=== PATIENT | female | born 1960 | race Caucasian/White ===

== ENCOUNTER 2020-06-20 17:51 | Inpatient (IN) | payer MEDICARE, SELFPAY ==
[2020-06-20 18:02] VITALS: BP 186/80; PULSE 106; RESP 18; TEMP 36.7; O2SAT 97; BMI 18.3
--- NOTE | 2020-06-20 18:16 | ED_ITS ---
HPI - Psych General: Chief Complaint: Psychiatric Symptoms Stated Complaint: PSYCH Time Seen by Provider: 06/20/20 18:04 History of Present Illness: HPI Narrative: Patient is a 59-year-old female who was brought in by EMS for psychosis. Patient was arrested by police department today due to making a scene in public. The police stated patient was cursing at them and saying a lot of things that do not make any sense. Police Department said that they have had encounters with this patient in the past for same issue and she has a history of noncompliance with psych medications. Patient was then brought in by the EMS to the ED for evaluation. While here in the ED patient started escalating and cursing at staff and spitting at them. She was saying things that did not make any sense. Patient's response to my questions were incoherent and made no sense. I completed and signed the 96-hour hold paperwork and affidavit. Review of Systems Const: Denies: fever(s), chills or fatigue Eyes: Denies: change in vision or eye discomfort ENMT: Denies: throat pain, odynophagia, nasal discharge or nasal congestion Card: Denies: chest pain, palpitations, edema, swelling of feet/ankles, dyspnea on exertion or orthopnea Resp: Denies: dyspnea, productive cough or non-productive cough GI: Denies: abdominal pain, nausea, vomiting, diarrhea, constipation or hematochezia : Denies: flank pain, dysuria or hematuria Musc: Denies: neck pain, back pain or extremity swelling Skin/Breast: Denies: rash or new lesions Neuro: Denies: headache(s), numbness in extremities or weakness in extremities Psych: Reports: other (Patient is in state of psychosis and is seen things that do not make any sense. You are unable to have a conversation with patient and she does not give appropriate response to questions.) [facility] ED PFSH: Social History Smoking and tobacco status: current every day smoker cigarettes Packs smoked per day: 1 Alcohol intake: current Alcohol intake frequency: holidays/special occasions only Physical Exam Const: COMMON NORMALS: alert GENERAL APPEARANCE: combative (Patient was combative with nurses when she first arrived to the ED. After getting psych meds administered she calm down.) HENMT: COMMON NORMALS: normocephalic HEAD & SCALP: normocephalic MOUTH: Normal oral and palatal mucosa present THROAT: posterior oropharynx normal and uvula midline Eye: COMMON NORMALS: Equal, round and reactive pupils present PUPIL: Yes Equal, round and reactive pupils present Neck/C-Spine: COMMON NORMALS: supple GENERAL: Yes normal visual inspection Resp: COMMON NORMALS: normal respiratory effort, No retractions, No use of accessory muscles and clear to auscultation bilaterally AUSCULTATION: clear to auscultation bilaterally Cardio: COMMON NORMALS: regular rate, regular rhythm, S1 normal heart sound present, S2 normal heart sound present, No gallops present (Cardio), No clicks present (Cardio), No murmurs present (Cardio) and Peripheral pulses 2+ throughout RATE: regular rate RHYTHM: regular rhythm HEART SOUNDS: S1 normal heart sound present and S2 normal heart sound present PERIPHERAL PULSES: Peripheral pulses 2+ throughout GI: COMMON NORMALS: Normal to inspection, nondistended, normoactive bowel sounds present, Soft to palpation, non-tender and no masses PALPATION: Yes Soft to palpation : COMMON NORMALS: Yes no CVA tenderness BLADDER/KIDNEY EXAM: Yes no CVA tenderness Back/Pelvis: COMMON NORMALS: no CVA tenderness Extremity: COMMON NORMALS: normal to inspection and no pedal edema Neuro: COMMON NORMALS: moves all extremities SENSORIUM/ORIENTATION: Yes alert Psych: APPEARANCE: Yes unkempt ATTITUDE: Yes calm (I performed exam after psych meds were administered to sedate patient because she was getting aggressive.) SPEECH: Yes incoherent THOUGHT PROCESS: incoherent INSIGHT: Poor insight present (Psych) JUDGEMENT: Poor judgement present (Psych) OTHER: Patient was making multiple incoherent statements while I was in the room. When I asked patient questions her responses were incoherent and made no sense and had no relevance to the question. Skin: GENERAL SKIN EXAM: dry skin MDM - Psych MDM Narrative: Medical decision making narrative: Patient is a 59-year-old female that is brought in by EMS for psychosis. During history and exam patient was in a state of psychosis and making incoherent statements and her response to my questions made no sense. 96-hour hold paperwork and affidavit were signed and completed by me. I contacted Dr. Knox about patient's case and she will be admitted into the NPU. Dr. Tineo placed admission orders. Lab Data: Attestation: I reviewed the patient's lab results. Labs: Lab Results 06/20/20 06/20/20 06/20/20 Range/Units 18:03 18:03 18:25 WBC 10.7 H (4.0-10.0) 10^3/ uL RBC 5.14 (4.1-5.3) 10^6/u L Hgb 16.2 H (11.5-15.3) g/dL Hct 50.3 H (37.0-47.0) % MCV 97.9 (81-99) fL MCH 31.5 (28.0-34.0) pg MCHC 32.2 (30.0-36.0) g/dL RDW 13.3 (12.1-15.1) % Plt Count 305 (130-400) 10^3/c mm MPV 9.4 (7.4-10.4) fL Neut % (Auto) 51.5 % Lymph % (Auto) 42.1 % [place] % (Auto) 4.9 % Eos % (Auto) 0.7 % Baso % (Auto) 0.4 % Neut # (Auto) 5.53 (1.8-7.7) 10^3/u L Lymph # (Auto) 4.5 (0.8-4.8) 10^3/u L [place] # (Auto) 0.5 (0.2-0.9) 10^3/u L Eos # (Auto) 0.1 (0.0-0.8) 10^3/u L Baso # (Auto) 0.0 (0.0-0.1) 10^3/u L Nucleated RBC % (a uto) 0 % Nucleated RBCs # 0.0 /100WBC Sodium (136-145) mmol/L Potassium (3.5-5.1) mmol/L Chloride (98-107) mmol/L Carbon Dioxide (22-29) mmol/L Anion Gap (5-19) BUN (6-20) mg/dL Creatinine (0.5-0.9) mg/dL GFR Calculation (90-130) mL/min Glucose (65-115) mg/dL Calculated Osmolal ity (285-295) mOsm/k g Calcium (8.5-10.5) mg/dL Total Bilirubin (0.15-1.2) mg/dL AST (0-32) U/L ALT (0-33) U/L Alkaline Phosphata se (35-105) IU/L Total Protein (6.6-8.7) g/dL Albumin (3.5-5.2) g/dL Globulin (1.3-4.6) g/dL Urine Color Yellow (Yellow) Urine Appearance Clear (CLEAR) Urine pH 5 (5-7) Ur Specific Gravit y 1.010 (1.005-1.030) Urine Protein Neg (Negative) Urine Glucose (UA) Norm (Normal) Urine Ketones Negative (Negative) Urine Blood Neg (Negative) Urine Nitrate Negative (Negative) Urine Bilirubin Neg (NEGATIVE) Urine Urobilinogen Norm (Negative) mg/dL Ur Leukocyte Ayaka ase Negative (Negative) Salicylates (3-10) mg/dL Urine Opiates Scre en Negative (Negative) ng/mL Acetaminophen (10-30) ug/mL Ur Barbiturates Sc reen Negative (Negative) ng/mL Ur Phencyclidine S crn Negative (Negative) ng/mL Ur Amphetamines Sc reen Negative (Negative) ng/mL U Benzodiazepines Scrn Negative (Negative) ng/mL Urine Cocaine Scre en Negative (Negative) ng/mL U Marijuana (THC) Screen Negative (Negative) ng/mL Ethyl Alcohol (0-10) mg/dL 06/20/ Range/Units 18:25 WBC (4.0-10.0) 10^3/ uL RBC (4.1-5.3) 10^6/u L Hgb (11.5-15.3) g/dL Hct (37.0-47.0) % MCV (81-99) fL MCH (28.0-34.0) pg MCHC (30.0-36.0) g/dL RDW (12.1-15.1) % Plt Count (130-400) 10^3/c mm MPV (7.4-10.4) fL Neut % (Auto) % Lymph % (Auto) % [place] % (Auto) % Eos % (Auto) % Baso % (Auto) % Neut # (Auto) (1.8-7.7) 10^3/u L Lymph # (Auto) (0.8-4.8) 10^3/u L [place] # (Auto) (0.2-0.9) 10^3/u L Eos # (Auto) (0.0-0.8) 10^3/u L Baso # (Auto) (0.0-0.1) 10^3/u L Nucleated RBC % (a uto) % Nucleated RBCs # /100WBC Sodium 141 (136-145) mmol/L Potassium 3.9 (3.5-5.1) mmol/L Chloride 103 (98-107) mmol/L Carbon Dioxide 26 (22-29) mmol/L Anion Gap 15.9 (5-19) BUN 8 (6-20) mg/dL Creatinine 0.9 (0.5-0.9) mg/dL GFR Calculation 64.3 L (90-130) mL/min Glucose 97 (65-115) mg/dL Calculated Osmolal ity 288 (285-295) mOsm/k g Calcium 9.9 (8.5-10.5) mg/dL Total Bilirubin 0.3 (0.15-1.2) mg/dL AST 27 (0-32) U/L ALT 21 (0-33) U/L Alkaline Phosphata se 94 (35-105) IU/L Total Protein 7.4 (6.6-8.7) g/dL Albumin 4.7 (3.5-5.2) g/dL Globulin 2.7 (1.3-4.6) g/dL Urine Color (Yellow) Urine Appearance (CLEAR) Urine pH (5-7) Ur Specific Gravit y (1.005-1.030) Urine Protein (Negative) Urine Glucose (UA) (Normal) Urine Ketones (Negative) Urine Blood (Negative) Urine Nitrate (Negative) Urine Bilirubin (NEGATIVE) Urine Urobilinogen (Negative) mg/dL Ur Leukocyte Ayaka ase (Negative) Salicylates < 0.3 L (3-10) mg/dL Urine Opiates Scre en (Negative) ng/mL Acetaminophen < 5.0 L (10-30) ug/mL Ur Barbiturates Sc reen (Negative) ng/mL Ur Phencyclidine S crn (Negative) ng/mL Ur Amphetamines Sc reen (Negative) ng/mL U Benzodiazepines Scrn (Negative) ng/mL Urine Cocaine Scre en (Negative) ng/mL U Marijuana (THC) Screen (Negative) ng/mL Ethyl Alcohol 13 H (0-10) mg/dL Discharge Plan Discharge Patient Disposition: Admitted As Inpatient Admit Provider: Andrey Knox Discharge Date/Time: 06/20/20 20:06 Coding Level of Care Code ED Cloth Winder Machine Operator for Chg Fwd Exam Comprehensive
[2020-06-20] MEDS: LORazepam 2 mg/mL INJ 1 mL IM (18:30)
[2020-06-20] MEDS: haloperidol inj 5 mg/mL INJ 1 mL IM (18:30)
[2020-06-20 18:48] LABS: Add Urine Microscopic? NO
[2020-06-20 18:49] LABS: Basophils % 0.4 %; Eosinophils # 0.1 10^3/uL (0.0-0.8); Eosinophils % 0.7 %; Hematocrit 50.3 % (37.0-47.0); Hemoglobin 16.2 g/dL (11.5-15.3); Lymphocytes # 4.5 10^3/uL (0.8-4.8); Lymphocytes % 42.1 %; Mean Corpuscular HGB Conc 32.2 g/dL (30.0-36.0); Mean Corpuscular Hemoglobin 31.5 pg (28.0-34.0); Mean Corpuscular Volume 97.9 fL (81-99); Mean Platelet Volume 9.4 fL (7.4-10.4); Monocytes # 0.5 10^3/uL (0.2-0.9); Monocytes % 4.9 %; Neutrophils # 5.53 10^3/uL (1.8-7.7); Neutrophils % 51.5 %; Nucleated Red Blood Cells % 0 %; Platelet Count 305 10^3/cmm (130-400); Red Blood Count 5.14 10^6/uL (4.1-5.3); Red Cell Distribution Width 13.3 % (12.1-15.1); White Blood Count 10.7 10^3/uL (4.0-10.0)
[2020-06-20 19:04] LABS: Bilirubin Urine Neg (NEGATIVE); Blood Urine Neg (Negative); Glucose Urine UA Norm (Normal); Ketones Urine Negative (Negative); Leukocyte Esterase Urine Negative (Negative); Nitrate Urine Negative (Negative); Protein Urine Neg (Negative); Urine Appearance Clear (CLEAR); Urine Color Yellow (Yellow); Urobilinogen Urine Norm (Negative); pH Urine 5 (5-7)
[2020-06-20 19:05] LABS: Amphetamines Screen Urine Negative (Negative); Barbiturates Screen Urine Negative (Negative); Benzodiazepines Screen Urine Negative (Negative); Cocaine Screen Urine Negative (Negative); Opiate Screen Urine Negative (Negative); PCP Screen Urine Negative (Negative); THC Screen Urine Negative (Negative)
[2020-06-20 19:07] LABS: Alanine Aminotransferase 21 U/L (0-33); Albumin Level 4.7 g/dL (3.5-5.2); Alcohol Level 13 mg/dL (0-10); Alkaline Phosphatase 94 IU/L (35-105); Anion Gap 15.9 (5-19); Aspartate Amino Transferase 27 U/L (0-32); Blood Urea Nitrogen 8 mg/dL (6-20); Calcium 9.9 mg/dL (8.5-10.5); Carbon Dioxide 26 mmol/L (22-29); Chloride 103 mmol/L (98-107); Globulin 2.7 g/dL (1.3-4.6); Glomerular Filtration Rate 64.3 mL/min (90-130); Glucose 97 mg/dL (65-115); Osmolality Calculated 288 mOsm/kg (285-295); Potassium 3.9 mmol/L (3.5-5.1); Sodium 141 mmol/L (136-145); Total Bilirubin 0.3 mg/dL (0.15-1.2); Total Protein 7.4 g/dL (6.6-8.7)
[2020-06-20 19:08] LABS: Acetaminophen < 5.0 ug/mL (10-30); Salicylate < 0.3 mg/dL (3-10)
[2020-06-20 20:06] VITALS: BP 136/82; PULSE 80; RESP 16; O2SAT 97
[2020-06-20 20:18] VITALS: BP 130/84; PULSE 99; RESP 14; TEMP 36.6; O2SAT 95
[2020-06-20 22:00] VITALS: BP 130/84; PULSE 99; RESP 14; TEMP 36.6; O2SAT 95
[2020-06-21 06:00] VITALS: BP 108/76; PULSE 100; RESP 20; TEMP 36.9; O2SAT 95
--- NOTE | 2020-06-21 08:33 | PC.NURSE ---
refused scheduled thiamine, folic acid, multivitamin this morning. pt stated I don't need to take those
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
[2020-06-21 14:00] VITALS: BP 134/69; PULSE 89; RESP 18; TEMP 36.3; O2SAT 97
[2020-06-21 21:23] VITALS: BP 161/80; PULSE 102; RESP 18; TEMP 36.6; O2SAT 94
[2020-06-22 06:00] VITALS: RESP 22
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
[2020-06-22 14:00] VITALS: BP 154/83; PULSE 74; RESP 18; TEMP 36.4; O2SAT 98
--- NOTE | 2020-06-22 15:41 | PM.NPN ---
Subjective NPU Subjective: Interval history: Ana presents today still very aggressive and angry, getting in this technical publications writer?s face and asking who told him that she did well on Invega or benefited from any medication. Because she wanted to be able to confront this curse words liar to their face. She continues to deny even being Ana, and reports that we do not need to give her any medication, and anyone that has said that she benefits from medication is lying, and she plans to just sit out treatment until her 96-hour hold is up. I explained to her that the problem with that is if she is still psychotic that we may be required to keep her longer, and she refused to believe that anyone evaluating her would think she was psychotic. She is sleeping okay and eating fine, but continues to refuse all medication. Mental Status Exam MSE Comments: This is a slender, well-developed older white female with a more or less buzz cut with adequate dress and limited eye contact. No abnormal movements except for psychomotor agitation. Semicooperative with exam in moderate distress. Speech was increased rate and volume. Mood described as good affect odd and irritable. Thought process disorganized. Thought content: Patient denied any suicidal or homicidal ideation but she did express aggression towards those who got her here, there were no delusions reported with clear paranoid, persecutory delusions exist, and she did not appear to be attending to internal stimuli she did talk to herself quite a bit. Attention and concentration were limited and memory was unreliable but none were formally tested. She is alert and oriented times person and place. Insight and judgment are impaired. Impulse control is impaired. Vitals/I&O/Wt Last Vital Signs Temp 97.5 F L 06/22/20 14:00 Pulse 74 06/22/20 14:00 Resp 18 06/22/20 14:00 BP 154/83 06/22/20 14:00 Pulse Ox 98 06/22/20 14:00 Weight last 48 hrs Weight 45.359 kg Data NPU : 06/20/20 18:25 06/20/20 18:25 A&P Additional A&P Information (1) Psychosis: (2) Schizoaffective disorder: (3) Alcohol use: This is a 59-year-old white female 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 1. Continue current medication. We will continue to offer her to resume the Invega and ultimately try to get her back on injection. 2. Continue every 15 minute checks for safety. 3. Encourage individual, group and milieu therapy. Involuntary Hold Information 96 Hour Hold: 96 Hour Involuntary Admission: Yes 96 Hour Hold Ending Date: 06/26/20 96 Hour Hold Ending Time: 19:30 Attestations NPU Medical Necessity Statement*: Inpatient hospitalization is medically necessary in the clinically appropriate intervention at this time. We will attempt to initiate medication make adjustments as indicated. Likely length of stay 4-6 days. Coding Level of Care Code Acute Marriage And Family Therapist for Gustavo Burns
[2020-06-22 20:37] VITALS: RESP 17
--- NOTE | 2020-06-23 04:08 | PC.NURSE ---
pt has had a couple of 2 times where pt came out of room cursing at an invisible source. several times was noted that pt was yelling in her room and slamming bathroom door. other than these few episodes, pt has has a good night this night.
[2020-06-23 06:00] VITALS: BP 132/62; PULSE 94; RESP 18; TEMP 36.8; O2SAT 94
[2020-06-23 14:00] VITALS: BP 135/81; PULSE 75; RESP 18; TEMP 36.6; O2SAT 98
--- NOTE | 2020-06-23 15:19 | P.PN_ITS ---
Subjective NPU Subjective: Interval history: Ana presents today a little less irritable appearing than she had the last few days. She endorses she is sleeping okay and eating fine. Unfortunately, she continues to be resistant to any conversations about restarting her medication, not as angry about it anymore, but still denying any thoughts of getting back on medication or needing medication. I discussed with her the likelihood that the end result of this will be that we will have to file for 21-day hold. She seemed to hear me when I said that today, hoping that maybe tomorrow she will be open to restarting her medication. Mental Status Exam MSE Comments: This is a slender, well-developed older white female with a more or less buzz cut with adequate dress and limited eye contact. No abnormal movements except for psychomotor agitation. Semicooperative with exam in mild distress. Speech was increased rate and volume. Mood described as good affect odd but less irritable. Thought process disorganized. Thought content: Patient denied any suicidal or homicidal ideation but she did express aggression towards those who got her here, there were no delusions reported with clear paranoid, persecutory delusions exist, and she did not appear to be attending to internal stimuli she did talk to herself but less. Attention and concentration were limited and memory was unreliable but none were formally tested. She is alert and oriented times person and place. Insight and judgment are impaired. Impulse control is impaired. Vitals/I&O/Wt Last Vital Signs Temp 97.8 F 06/23/20 14:00 Pulse 75 06/23/20 14:00 Resp 18 06/23/20 14:00 BP 135/81 06/23/20 14:00 Pulse Ox 98 06/23/20 14:00 Data NPU : 06/20/20 18:25 06/20/20 18:25 A&P Additional A&P Information (1) Psychosis: (2) Schizoaffective disorder: (3) Alcohol use: This is a 59-year-old white female 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 1. Continue current medication. We will continue to offer her to resume the Invega and ultimately try to get her back on injection. 2. Continue every 15 minute checks for safety. 3. Encourage individual, group and milieu therapy. Involuntary Hold Information 96 Hour Hold: 96 Hour Involuntary Admission: Yes 96 Hour Hold Ending Date: 06/26/20 96 Hour Hold Ending Time: 19:30 Attestations NPU Medical Necessity Statement*: Inpatient hospitalization is medically necessary in the clinically appropriate intervention at this time. We will attempt to initiate medication make adjustments as indicated. Likely length of stay 4-6 days. If she does not improve she will need to be placed on a 21 day hold. Coding Level of Care Code Acute Purchasing Administrator for Gustavo Burns
--- NOTE | 2020-06-23 16:35 | PC.RESP ---
SMOKING CESSATION INFORMATION SENT TO PATIENT.
[2020-06-23 20:34] VITALS: PULSE 82; RESP 20; TEMP 35.7; O2SAT 97
--- NOTE | 2020-06-23 21:28 | PC.NURSE ---
pt offered PRN sleep and anxiety meds but refused.
[2020-06-23 22:00] VITALS: PULSE 82; RESP 20; TEMP 35.7; O2SAT 97
[2020-06-24 06:00] VITALS: RESP 22
[2020-06-24 14:00] VITALS: BP 128/79; PULSE 101; RESP 18; TEMP 36.4
[2020-06-24] MEDS: ARIPiprazole 10 mg Tablet PO (15:25)
--- NOTE | 2020-06-24 16:52 | PM.NPN ---
Subjective NPU Subjective: Interval history: Ana presents today continuing to be resistant and almost offended by the suggestion that Invega was helpful. She reported that there were all kinds of side effects, and then she ran through other medications that she has taken in her mental health history that had side effects that she did not like, including Thorazine and some other agents. So she was refusing Invega. But then I advised her that I would be open to a trial of Abilify, noting that the choices, in part, were related to medications that have a chance for a long acting injectable. She reports that she does not want any shots, and I endorsed understanding that, but the option of having that as a place to go to if adherence becomes a problem, given her history and situation, is a valuable asset for the medication to have. So we discussed the risks, benefits, and alternatives a trial of Abilify, and she understood and agreed to proceed as is documented in this note. She reports she is eating better and sleeping a little better. Mental Status Exam MSE Comments: This is a slender, well-developed older white female with a more or less buzz cut with adequate dress and limited eye contact. No abnormal movements except for psychomotor agitation. Semicooperative with exam in mild distress. Speech was increased rate and volume. Mood described as fine, affect odd but less irritable. Thought process disorganized but improving. Thought content: Patient denied any suicidal or homicidal ideation but she did express aggression towards those who got her here, there were no delusions reported with clear paranoid, persecutory delusions exist, and she did not appear to be attending to internal stimuli she did talk to herself but less. Attention and concentration were limited and memory was unreliable but none were formally tested. She is alert and oriented times person and place. Insight and judgment are impaired, but improving. Impulse control is impaired. 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 1. Continue current medication. Start abilify 10 mg po qam. 2. Continue every 15 minute checks for safety. 3. Encourage individual, group and milieu therapy. Involuntary Hold Information 96 Hour Hold: 96 Hour Involuntary Admission: Yes 96 Hour Hold Ending Date: 06/26/20 96 Hour Hold Ending Time: 19:30 Attestations NPU Medical Necessity Statement*: Inpatient hospitalization is medically necessary in the clinically appropriate intervention at this time. We will attempt to initiate medication make adjustments as indicated. Likely length of stay 4-6 days. If she does not improve she will need to be placed on a 21 day hold. Coding Level of Care Code Acute Physical Integration Practitioner for Gustavo Burns
[2020-06-24 22:00] VITALS: RESP 16
--- NOTE | 2020-06-25 00:49 | PC.NURSE ---
pt offered PRN meds for sleep and anxiety, but refused.
[2020-06-25 06:00] VITALS: BP 133/82; PULSE 110; RESP 18; TEMP 36.4; O2SAT 95
[2020-06-25] MEDS: thiamine 100 mg Tablet PO (09:36)
[2020-06-25] MEDS: folic acid 1 mg Tablet PO (09:36)
[2020-06-25] MEDS: multivitamin therapeutic Tablet 1 TAB PO (09:36)
[2020-06-25] MEDS: ARIPiprazole 10 mg Tablet PO (09:36)
--- NOTE | 2020-06-25 09:52 | P.PN_ITS ---
Subjective NPU Subjective: Interval history: The patient presents today reporting that they were giving her Zyprexa, and she has had Zyprexa before, and it is not a medication that is good for her. I explained to her that the Zyprexa was a prn medication that they were trying to give her to help her calm down. And she was frustrated, for some reason, around her lunch, and about who touched it or how they touched it. But she reports that she did take the Abilify. She reports that she did have some trouble sleeping but we agreed that we had discussed that could happen, just given that she was given the medication later in the day, and it is definitely a medication for morning because people can be activated. She said she understood that, and she would continue to give it a try, but she did not want any Zyprexa. When I found her, she had a rag and was wiping the yun and was wiping off an air conditioner, so there may be some OCD issues, although she could not really explain why she was cleaning things. I saw her wipe the floor at one point, so that is something to monitor. She reports that she is eating okay and sleep was tough last night. Mental Status Exam MSE Comments: This is a slender, well-developed older white female with a more or less buzz cut with adequate dress and limited eye contact. No abnormal movements except for psychomotor agitation. More cooperative with exam in mild distress. Speech was increased rate and more normal volume. Mood described as good, affect odd but less irritable. Thought process disorganized but improving. Thought content: Patient denied any suicidal or homicidal ideation, there were no delusions reported but paranoid and persecutory delusions exist, and she denied auditory or visual hallucinations. Attention and concentration were improving and memory was unreliable but none were formally tested. She is alert and oriented times person and place. Insight and judgment are impaired, but improving. Impulse control is impaired. Vitals/I&O/Wt Last Vital Signs Temp 97.6 F 06/25/20 06:00 Pulse 110 H 06/25/20 06:00 Resp 18 06/25/20 06:00 BP 133/82 06/25/20 06:00 Pulse Ox 95 06/25/20 06:00 Weight last 48 hrs Weight 46.38 kg Home Medications No Known Home Medications 05/27/20 [History Confirmed 06/20/20] Active Medications Acetaminophen (Tylenol) 650 mg PO Q4H PRN PRN Reason: MILD PAIN Aripiprazole (Abilify) 10 mg PO DAILY REPLACED BY [facility] Last Admin: 06/25/20 09:36 Dose: 10 mg Documented by: Benztropine Mesylate (Cogentin) 1 mg PO BID PRN PRN Reason: Mild Extrapyramidal symptoms Camphor/Menthol/Phenol (Blistex) 1 applic TOPICAL Q1H PRN PRN Reason: DRYNESS Diphenhydramine HCl (Benadryl) 50 mg IM ONCE PRN PRN Reason: Severe Extrapyramidal Symptoms Diphenhydramine HCl (Benadryl) 50 mg IM Q4H PRN PRN Reason: Severe Aggression Folic Acid (Folic Acid) 1 mg PO DAILY REPLACED BY [facility] Last Admin: 06/25/20 09:36 Dose: 1 mg Documented by: Haloperidol (Haldol) 5 mg PO Q4H PRN PRN Reason: AGITATION Haloperidol Lactate (Haldol Inj) 5 mg IM Q4H PRN PRN Reason: Severe Aggression Hydroxyzine Pamoate (Vistaril) 50 mg PO Q6H PRN PRN Reason: ANXIETY Loperamide HCl (Imodium Capsule) 2 mg PO Q6H PRN PRN Reason: DIARRHEA Lorazepam (Ativan) 2 mg IM Q4H PRN PRN Reason: Severe Aggression Lorazepam (Ativan) 2 mg IM PROTOCOL PRN; Protocol PRN Reason: ALCOWD Lorazepam (Ativan) 2 mg PO PROTOCOL PRN; Protocol PRN Reason: WITHDRAWAL Multivitamins Therapeutic (Multivitamin Tab) 1 tab PO DAILY REPLACED BY [facility] Last Admin: 06/25/20 09:36 Dose: 1 tab Documented by: Nicotine (Nicoderm 21 Mg Patch) 1 patch TRANSDERMA DAILY PRN PRN Reason: NICOTINE WITHDRAWAL Nicotine Polacrilex (Nicorette) 2 mg BUCCAL Q2H PRN PRN Reason: NICOTINE WITHDRAWAL Olanzapine (Zyprexa Zydis) 5 mg PO Q4H PRN PRN Reason: Agitation/Psychosis Ondansetron HCl (Zofran) 4 mg PO Q6H PRN PRN Reason: NAUSEA AND VOMITING Thiamine Mononitrate (Vitamin B-1) 100 mg PO DAILY REPLACED BY [facility] Last Admin: 06/25/20 09:36 Dose: 100 mg Documented by: Trazodone HCl (Desyrel) 50 mg PO BEDTIME PRN PRN Reason: SLEEP Data NPU : 06/20/20 18:25 06/20/20 18:25 A&P Additional A&P Information (1) Psychosis: (2) Schizoaffective disorder: (3) Alcohol use: This is a 59-year-old white female 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 1. Continue current medication. 2. Continue every 15 minute checks for safety. 3. Encourage individual, group and milieu therapy. Involuntary Hold Information 96 Hour Hold: 96 Hour Involuntary Admission: Yes 96 Hour Hold Ending Date: 06/26/20 96 Hour Hold Ending Time: 19:30 Attestations NPU Medical Necessity Statement*: Inpatient hospitalization is medically necessary and the clinically appropriate intervention at this time. We will monitor medications and make adjustments as indicated. Likely length of stay 4-6 days. If she does not improve she will need to be placed on a 21 day hold. Coding Level of Care Code Acute Diesel Engine Fitter for Gustavo Burns
[2020-06-25 14:00] VITALS: BP 122/67; PULSE 72; RESP 18; TEMP 37; O2SAT 95
[2020-06-25 21:05] VITALS: BP 135/81; PULSE 91; RESP 20; TEMP 36.4; O2SAT 98
[2020-06-26 06:00] VITALS: BP 130/79; PULSE 80; RESP 20; TEMP 36.8; O2SAT 97
[2020-06-26] MEDS: ARIPiprazole 10 mg Tablet PO (08:03)
[2020-06-26] MEDS: folic acid 1 mg Tablet PO (08:04)
[2020-06-26] MEDS: multivitamin therapeutic Tablet 1 TAB PO (08:04)
[2020-06-26] MEDS: thiamine 100 mg Tablet PO (08:04)
[2020-06-26 14:00] VITALS: BP 124/77; PULSE 84; RESP 18; TEMP 37.4; O2SAT 95
--- NOTE | 2020-06-26 16:37 | PM.NPN ---
Subjective NPU Subjective: Interval history: Ana presented today very irritable, and she did not reveal the ?why? of her irritability until the very end of our conversation. When I knocked on the door and she opened the door, she was very intrusive, and argumentative, and clearly angry. She was asking questions very quickly, that were confusing and not clear. I attempted to engage her and talk about some of the subtle improvements that we have noted. Then she ultimately revealed why she was angry, which was that she had gotten notice that there will be a hearing, on Friday, for the 21 day hold, given that she is continuing to struggle with psychosis and is in no condition to be discharged. After she revealed that we would be able to talk about some of these issues, that I was asking about on Friday, she promptly ended the interview and walked away. Mental Status Exam MSE Comments: This is a slender, well-developed older white female with a more or less buzz cut with adequate dress and limited eye contact. No abnormal movements except for psychomotor agitation. More cooperative with exam in mild to moderate distress. Speech was increased rate and more normal volume. Mood described as you know, affect odd and more irritable. Thought process disorganized but improving. Thought content: Patient denied any suicidal or homicidal ideation, there were no delusions reported but paranoid and persecutory delusions exist, and she denied auditory or visual hallucinations. Attention and concentration were improving and memory was unreliable but none were formally tested. She is alert and oriented times person and place. Insight and judgment are impaired, but improving. Impulse control is impaired. 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 1. Continue current medication. 2. Continue every 15 minute checks for safety. 3. Encourage individual, group and milieu therapy. 4. Will continue to encourage considering the ALFARO Bharath Casey 5. 21 day hold paperwork filed. Involuntary Hold Information 96 Hour Hold: 96 Hour Involuntary Admission: Yes 96 Hour Hold Ending Date: 06/26/20 96 Hour Hold Ending Time: 19:30 Attestations NPU Medical Necessity Statement*: Inpatient hospitalization is medically necessary and the clinically appropriate intervention at this time. We will monitor medications and make adjustments as indicated. Likely length of stay 4-6 days. She will need to be placed on a 21 day hold. Coding Level of Care Code Acute Chemical Handler for Gustavo Burns
[2020-06-26 20:15] VITALS: RESP 21
--- NOTE | 2020-06-27 03:41 | PC.NURSE ---
At , pt was offered meds for sleep and anxiety, but refused.
[2020-06-27 06:00] VITALS: BP 133/78; PULSE 75; RESP 16; TEMP 36.6; O2SAT 99
[2020-06-27] MEDS: ARIPiprazole 10 mg Tablet PO (09:44)
--- NOTE | 2020-06-27 10:35 | PM.NPN ---
Subjective NPU Subjective: Interval history: The patient presents today continuing to take her medication every day but having resistance to being here. Today she acknowledged the hearing tomorrow and I continued to discuss the fact that my desire is to keep her here as long as is necessary, but otherwise no longer. She endorsed that she is having some dental issues that she wants to take care of, and other things she wants to take care of, outside of the hospital. We discussed that we would get her out of here as soon as possible but have great concerns about her continued psychosis. She reports she is eating okay and sleeping better. Her jacquard twine polisher operator came and said that she is not wanting to go to the hearing. Mental Status Exam MSE Comments: This is a slender, well-developed older white female with a buzz cut with adequate dress and eye contact. No abnormal movements except for mild psychomotor agitation. More cooperative with exam in mild to moderate distress. Speech was increased rate and more normal volume. Mood described as OK, affect odd and irritable. Thought process disorganized but improving. Thought content: Patient denied any suicidal or homicidal ideation, there were no delusions reported but paranoid and persecutory delusions exist, and she denied auditory or visual hallucinations. Attention and concentration were improving and memory was unreliable but none were formally tested. She is alert and oriented x 3. Insight and judgment are impaired, but improving. Impulse control is impaired. 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 1. Continue current medication. 2. Continue every 15 minute checks for safety. 3. Encourage individual, group and milieu therapy. 4. Will continue to encourage considering the DOMINIC Casey 5. 21 day hold hearing tomorrow.. Involuntary Hold Information 96 Hour Hold: 96 Hour Involuntary Admission: Yes 96 Hour Hold Ending Date: 06/26/20 96 Hour Hold Ending Time: 19:30 Attestations NPU Medical Necessity Statement*: Inpatient hospitalization is medically necessary and the clinically appropriate intervention at this time. We will monitor medications and make adjustments as indicated. Likely length of stay 4-6 days. She will need 21 day hold hearing tomorrow. Coding Level of Care Code Acute Granite Polisher for Gustavo Burns
[2020-06-27 14:00] VITALS: BP 113/70; PULSE 88; RESP 20; TEMP 37.2; O2SAT 97
[2020-06-27 20:37] VITALS: RESP 15
[2020-06-28 06:00] VITALS: BP 120/86; PULSE 104; RESP 16; TEMP 36.7; O2SAT 97
[2020-06-28] MEDS: ARIPiprazole 10 mg Tablet PO (08:46)
--- NOTE | 2020-06-28 08:47 | PC.NURSE ---
refused scheduled thiamine, multivitamin, folic acid
--- NOTE | 2020-06-28 13:02 | PM.NPN ---
Subjective NPU Subjective: Interval history: Ana presents today seeming a bit activated. She had her hearing that this greeting card writer attended, but she chose not to attend. She agreed that it is probably in her best interest that she stay, showing some improved insight, but continuing to have disorganization and moments where it is really hard to follow what she is talking about. She did report wanting us to consider an antibiotic for her mouth. Her gums are in significant disrepair with loose teeth and many teeth that have fallen out. She acknowledges that this is something she needs to take care of, and it gets neglected when she is not well. We discussed the risks, benefits, and alternatives of increasing the Abilify in the morning. I also attempted to discuss the possibility of her taking the injection, which she was not open to, but she understood and agreed to proceed as is documented in this note. Mental Status Exam MSE Comments: This is a slender, well-developed older white female with a buzz cut with adequate dress and eye contact. No abnormal movements except for mild psychomotor agitation. More cooperative with exam in mild distress. Speech was increased rate and more normal volume. Mood described as fine, affect odd and irritable. Thought process disorganized but improving. Thought content: Patient denied any suicidal or homicidal ideation, there were no delusions reported but paranoid and persecutory delusions exist, and she denied auditory or visual hallucinations. Attention and concentration were improving and memory was unreliable but none were formally tested. She is alert and oriented x 3. Insight and judgment are impaired, but improving. Impulse control is impaired. 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 1. Continue current medication. 2. Continue every 15 minute checks for safety. 3. Encourage individual, group and milieu therapy. 4. Will continue to encourage considering the ALFARO Bharath Casey 5. 21 day hold granted. Involuntary Hold Information 96 Hour Hold: 96 Hour Involuntary Admission: Yes 96 Hour Hold Ending Date: 06/26/20 96 Hour Hold Ending Time: 19:30 Attestations NPU Medical Necessity Statement*: Inpatient hospitalization is medically necessary and the clinically appropriate intervention at this time. We will monitor medications and make adjustments as indicated. Likely length of stay 5-7 days. Coding Level of Care Code Acute Technical Recruiter for Gustavo Burns
[2020-06-28 14:00] VITALS: BP 122/70; PULSE 89; RESP 18; TEMP 37.2; O2SAT 96
[2020-06-28 20:52] VITALS: BP 183/90; PULSE 100; RESP 18; TEMP 36.5; O2SAT 97
--- NOTE | 2020-06-28 22:55 | PC.NURSE ---
PT offered PRN meds for sleep and anxiety, but refused.
[2020-06-29 06:00] VITALS: BP 148/87; PULSE 77; RESP 18; TEMP 36.6; O2SAT 91
[2020-06-29] MEDS: ARIPiprazole 10 mg Tablet PO (08:01)
--- NOTE | 2020-06-29 09:16 | PC.NURSE ---
Ana is talkative and easily engaged in conversation this morning. She was willing to take medication but refused the vitamins.
[2020-06-29] MEDS: ARIPiprazole 10 mg Tablet 5 MG PO (09:39)
--- NOTE | 2020-06-29 11:02 | PM.NPN ---
Subjective NPU Subjective: Interval history: Ana presents today reporting that things are going fairly well. But she continues to really struggle with raid speech which is reflective of racing thoughts, paranoia, and disorganization. She continues to talk about a lot subjects that it is unclear how we even got on that topic. She will make odd statements about that and laughs, and lacks clarity of purpose in her conversations. We discussed the risks, benefits, and alternatives of increasing the Abilify, and she appeared to understand, and agreed to proceed as is documented in this note. She is on a 21 day hold so we will offer the medication even though it is unclear how much she really understands the plan. Mental Status Exam MSE Comments: This is a slender, well-developed older white female with a buzz cut with adequate dress and eye contact. No abnormal movements except for mild psychomotor agitation. More cooperative with exam in mild distress. Speech was increased rate and more normal volume. Mood described as OK, affect odd and irritable. Thought process disorganized but improving. Thought content: Patient denied any suicidal or homicidal ideation, there were no delusions reported but paranoid and persecutory delusions exist, and she denied auditory or visual hallucinations. Attention and concentration were improving and memory was unreliable but none were formally tested. She is alert and oriented x 3. Insight and judgment are impaired, but improving. Impulse control is impaired. 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 1. Continue current medication. Increase Abilify to 15 mg po qam. 2. Continue every 15 minute checks for safety. 3. Encourage individual, group and milieu therapy. 4. Will continue to encourage considering the ALFARO Abilify Maintena 5. 21 day hold granted. Involuntary Hold Information 96 Hour Hold: 96 Hour Involuntary Admission: Yes 96 Hour Hold Ending Date: 06/26/20 96 Hour Hold Ending Time: 19:30 Attestations NPU Medical Necessity Statement*: Inpatient hospitalization is medically necessary and the clinically appropriate intervention at this time. We will monitor medications and make adjustments as indicated. Likely length of stay 5-7 days. Coding Level of Care Code Acute Biological Plant Operator for Gustavo Burns
[2020-06-29 14:00] VITALS: BP 151/84; PULSE 71; RESP 20; TEMP 36.4; O2SAT 100
[2020-06-29] MEDS: nicotine 2 mg Gum BUCCAL (18:40)
[2020-06-29 20:28] VITALS: PULSE 92; RESP 12; TEMP 36.8; O2SAT 100
[2020-06-30 06:00] VITALS: RESP 13
[2020-06-30] MEDS: ARIPiprazole 30 mg Tablet 15 MG PO (08:22)
--- NOTE | 2020-06-30 08:27 | PC.NURSE ---
refused scheduled folic acid, mtv, thiamine
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
[2020-06-30 12:15] VITALS: BP 99/63; PULSE 85; RESP 18; TEMP 37.1; O2SAT 99
--- NOTE | 2020-06-30 14:01 | P.PN_ITS ---
Subjective NPU Subjective: Interval history: The patient presents today reporting that she is sleeping okay. She continues to be fairly restless during the day though, and it is unclear if she is sleeping as much as she is saying she is. Ultimately, she is still having some obsessive cleaning behaviors, continues to have disorganized conversations overall about pacing and she does report significant dental complaints. We discussed the risks, benefits, and alternatives of considering an antibiotic for her teeth and gums, and she appeared to understand and agree to proceed as is documented in this note. Ultimately, she endorsed wanting to leave as soon as possible, talked about having a place to go, but it is our understanding that some recent exploration of her apartment suggests that she has not been well for a while, reportedly broken windows, and dents in the wall and the landlord is not really happy, but she has been advised by some of her close confidants that she was really not well. We discussed continuing to increase the medication and continued to discuss the long-acting injectable. At this point she is thinking about the injectable. We will increase the medication. Mental Status Exam MSE Comments: This is a slender, well-developed older white female with a buzz cut with adequate dress and eye contact. No abnormal movements except for mild psychomotor agitation. More cooperative with exam in mild distress. Speech was increased rate and more normal volume. Mood described as pretty good, affect odd and irritable. Thought process disorganized but improving. Thought content: Patient denied any suicidal or homicidal ideation, there were no delusions reported but paranoid and persecutory delusions exist, and she denied auditory or visual hallucinations. Attention and concentration were improving and memory was unreliable but none were formally tested. She is alert and oriented x 3. Insight and judgment are impaired, but improving. Impulse control is impaired. Vitals/I&O/Wt Last Vital Signs Temp 97.7 F 06/30/20 21:48 Pulse 65 06/30/20 21:48 Resp 20 H 06/30/20 21:48 BP 104/65 06/30/20 21:48 Pulse Ox 97 06/30/20 21:48 Data NPU : 06/20/20 18:25 06/20/20 18:25 A&P Additional A&P Information (1) Psychosis: (2) Schizoaffective disorder: (3) Alcohol use: This is a 59-year-old white female with celso psychosis and inability to make informed consent who presents after bizarre behavior led to hospitalization and 96 hour hold, taking medication with mild improvements. 1. Continue current medication. Increase Abilify to 15 mg po qam. 2. Continue every 15 minute checks for safety. 3. Encourage individual, group and milieu therapy. 4. Will continue to encourage considering the ALFARO Abilify Maintena 5. 21 day hold granted. Involuntary Hold Information 96 Hour Hold: 96 Hour Involuntary Admission: Yes 96 Hour Hold Ending Date: 06/26/20 96 Hour Hold Ending Time: 19:30 Attestations NPU Medical Necessity Statement*: Inpatient hospitalization is medically necessary and the clinically appropriate intervention at this time. We will monitor medications and make adjustments as indicated. Likely length of stay 5-7 days. Coding Level of Care Code Acute It Business Analyst for Gustavo Burns
[2020-06-30 21:48] VITALS: BP 104/65; PULSE 65; RESP 20; TEMP 36.5; O2SAT 97
[2020-07-01 06:00] VITALS: BP 102/62; PULSE 104; RESP 21; TEMP 36.4; O2SAT 97
[2020-07-01] MEDS: ARIPiprazole 30 mg Tablet 15 MG PO (09:29)
[2020-07-01] MEDS: folic acid 1 mg Tablet PO (09:30)
[2020-07-01 14:00] VITALS: BP 128/65; PULSE 74; RESP 18; TEMP 36.7
--- NOTE | 2020-07-01 14:39 | PM.NPN ---
Subjective NPU Subjective: Interval history: Ana presents today still struggling with psychosis. She is much less intrusive, but still fairly disorganized. She denies any side effects to the medication. She is able to hold conversations when she is engaged, but when she has left her home device, she continues to be disorganized and often wandering. She is still having obsessive compulsive disorder behaviors, cleaning floors and yun from time to time. We discussed the possibility of increasing the Abilify again tomorrow, if we do not see any clear response. The patient continues to have positive response to Abilify, but we may need to start considering some augmentation if some of the disorganization does not resolve, but the near manic-like energy has improved dramatically. Mental Status Exam MSE Comments: This is a slender, well-developed older white female with a buzz cut with adequate dress and eye contact. No abnormal movements except for mild psychomotor agitation. More cooperative with exam in mild distress. Speech was increased rate and more normal volume. Mood described as OK, affect odd and irritable. Thought process disorganized. Thought content: Patient denied any suicidal or homicidal ideation, there were no delusions reported but paranoid and persecutory delusions exist, and she denied auditory or visual hallucinations. Attention and concentration were improving and memory was unreliable but none were formally tested. She is alert and oriented x 3. Insight and judgment are impaired. Impulse control is impaired. Vitals/I&O/Wt Last Vital Signs Temp 97.5 F L 07/01/20 06:00 Pulse 104 H 07/01/20 06:00 Resp 21 H 07/01/20 06:00 BP 102/62 07/01/20 06:00 Pulse Ox 97 07/01/20 06:00 Weight last 48 hrs Weight 49.804 kg Data NPU : 06/20/20 18:25 06/20/20 18:25 A&P Additional A&P Information (1) Psychosis: (2) Schizoaffective disorder: (3) Alcohol use: This is a 59-year-old white female with celso psychosis and inability to make informed consent who presents after bizarre behavior led to hospitalization and 96 hour hold, taking medication with mild improvements. 1. Continue current medication. 2. Continue every 15 minute checks for safety. 3. Encourage individual, group and milieu therapy. 4. Will continue to encourage considering the ALFARO Abilify Maintena 5. 21 day hold granted. Involuntary Hold Information 96 Hour Hold: 96 Hour Involuntary Admission: Yes 96 Hour Hold Ending Date: 06/26/20 96 Hour Hold Ending Time: 19:30 Attestations NPU Medical Necessity Statement*: Inpatient hospitalization is medically necessary and the clinically appropriate intervention at this time. We will monitor medications and make adjustments as indicated. Likely length of stay 5-7 days. Coding Level of Care Code Acute Vice President Of Human Resources for Gustaov Burns
[2020-07-01 22:00] VITALS: BP 132/71; PULSE 99; RESP 26; TEMP 36.9; O2SAT 98
[2020-07-02 06:00] VITALS: BP 129/69; PULSE 68; RESP 20; TEMP 36.7; O2SAT 100
[2020-07-02] MEDS: ARIPiprazole 30 mg Tablet 15 MG PO (08:10)
--- NOTE | 2020-07-02 08:10 | PC.NURSE ---
refused scheduled folic acid, mtv, thiamine
[2020-07-02 14:00] VITALS: BP 146/82; PULSE 82; RESP 20; TEMP 36.7; O2SAT 98
--- NOTE | 2020-07-02 16:39 | PM.NPN ---
Subjective NPU Subjective: Interval history: Ana presents today continuing to show improvement in notable ways with her psychosis, however she is still having disorganization. She is able to have fruitful conversations when she is engaged, but when she is the person initiating the interaction, she still can be difficult understanding the purpose of the conversation or what she is speaking about. She denies any side effects of Abilify. We discussed the risks, benefits, and alternatives of increasing it to 20 mg po qam and she appeared to understand and agreed to proceed as is documented in this note. Mental Status Exam MSE Comments: This is a slender, well-developed older white female with a buzz cut with adequate dress and eye contact. No abnormal movements except for mild psychomotor agitation. More cooperative with exam in mild distress. Speech was increased rate and more normal volume. Mood described as OK, affect odd and irritable. Thought process disorganized. Thought content: Patient denied any suicidal or homicidal ideation, there were no delusions reported but paranoid and persecutory delusions exist, and she denied auditory or visual hallucinations. Attention and concentration were improving and memory was unreliable but none were formally tested. She is alert and oriented x 3. Insight and judgment are impaired. Impulse control is impaired. 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 1. Continue current medication. Increase Abilify to 20 mg po qam. Need to consider change or augmentation if this does not move her past this plateau. 2. Continue every 15 minute checks for safety. 3. Encourage individual, group and milieu therapy. 4. Will continue to encourage considering the ALFARO Abilify Maintena 5. 21 day hold granted. Involuntary Hold Information 96 Hour Hold: 96 Hour Involuntary Admission: Yes 96 Hour Hold Ending Date: 06/26/20 96 Hour Hold Ending Time: 19:30 Attestations NPU Medical Necessity Statement*: Inpatient hospitalization is medically necessary and the clinically appropriate intervention at this time. We will monitor medications and make adjustments as indicated. Likely length of stay 5-7 days. Coding Level of Care Code Acute Scuba Diving Instructor for Gustavo Burns
[2020-07-02] MEDS: ARIPiprazole 10 mg Tablet 5 MG PO (16:49)
[2020-07-02 21:51] VITALS: BP 153/60; PULSE 68; RESP 19; TEMP 36.6; O2SAT 100
[2020-07-03 06:00] VITALS: BP 131/66; PULSE 72; RESP 17; TEMP 36.8; O2SAT 96
[2020-07-03] MEDS: ARIPiprazole 10 mg Tablet 20 MG PO (08:51)
[2020-07-03 12:22] VITALS: BP 109/74; PULSE 76; RESP 18; TEMP 36.6; O2SAT 97
--- NOTE | 2020-07-03 14:07 | PM.NPN ---
Subjective NPU Subjective: Interval history: They drilled a hole in my stomach and all that water came out. Patient states that she has no specific complaint today but feels she needs to be here a few more days. She has to pay her mortgage. But she feels that is going to be okay. She discussed her history. She took a few semesters of college. 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 Mental Status Exam MSE Comments: Mental Status Exam: This is a thin diminutive woman appearing approximately her stated age. She is stylishly dressed with good grooming. Eye contact is good. Psychomotoric activity is unremarkable. Appearance: hygiene is fair; no gross neurological deficits., gait is unremarkable; AIMS=0 Speech: Speech is of rapid rate and rhythm and often difficult to understand. In addition to being rapid, she mumbles. Thought processes: Thought processes are idiosyncratic and illogical.. Judgment is not adequate for safety. She demonstrates flight of ideas rapidly switching from topic to topic with no clear connection. Associations: Loose and reference Psychotic processes: There is no indication of guarding or paranoia. There is no attention to the internal stimuli. Auditory and visual hallucinations are denied. Judgment: Insight is poor. Problem solving skills are not adequate for safety. She is difficult with logical thinking. She believes that things that are clearly not true as premises for her conclusions. She demonstrates significant flight of ideas. Orientation: The patient is oriented to person, place time and situation. Memory: Unable to assess memory as we have no correlating information to some of her rather bizarre personal reports of history. Attention: The patient is alert and interpersonally engaged. Language: Verbalizations are coherent. Fund of knowledge: Fund of knowledge is poor Affect/Mood: Affect is consistent with a manic mood. She denied suicidal ideation Affective range constricted Psychosis: perception and reality testing are severely impaired by her inability to focus her attention on any one topic for any significant period of time and her idiosyncratic logic. Vitals/I&O/Wt Last Vital Signs Temp 98 F 07/03/20 12:22 Pulse 76 07/03/20 12:22 Resp 18 07/03/20 12:22 BP 109/74 07/03/20 12:22 Pulse Ox 97 07/03/20 12:22 Weight last 48 hrs Weight 49.804 kg Data NPU : 06/20/20 18:25 06/20/20 18:25 A&P Assessment and plan (1) Psychosis: Status: Acute (2) Schizoaffective disorder: Status: Acute (3) Alcohol use: Status: Acute Additional A&P Information (1) Psychosis: (2) Schizoaffective disorder: (3) Alcohol use: Hospital Day #12 Ana presents today seeming a bit activated. She had her hearing that this policy writer typist attended, but she chose not to attend. She agreed that it is probably in her best interest that she stay, showing some improved insight, but continuing to have disorganization and moments where it is really hard to follow what she is talking about. She did report wanting us to consider an antibiotic for her mouth. Her gums are in significant disrepair with loose teeth and many teeth that have fallen out. She acknowledges that this is something she needs to take care of, and it gets neglected when she is not well. We discussed the risks, benefits, and alternatives of increasing the Abilify in the morning. I also attempted to discuss the possibility of her taking the injection, which she was not open to, but she understood and agreed to proceed as is documented in this note. 1. Continue current medication. 2. Continue every 15 minute checks for safety. 3. Encourage individual, group and milieu therapy. 4. Will continue to encourage considering the ALFARO Abilify Maintena 5. 21 day hold granted. Hospital day #14 They drilled a hole in my stomach and all that water came out. Patient states that she has no specific complaint today but feels she needs to be here a few more days. She has to pay her mortgage. But she feels that is going to be okay. She discussed her history. She took a few semesters of college. 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 Plan: Continue Abilify 20 mg in the morning as long as she is compliant. If noncompliant will provide Geodon 20 mg IM. Trazodone as needed insomnia at bedtime was replaced with olanzapine. Involuntary Hold Information 96 Hour Hold: 96 Hour Involuntary Admission: Yes 96 Hour Hold Ending Date: 06/26/20 96 Hour Hold Ending Time: 19:30 Attestations NPU Medical Necessity Statement*: Patient will remain in the hospital another 15 days for the duration of her 21-day involuntary commitment. Coding Level of Care Code Acute Oven Operator for Gustavo Fwd Diagnoses Psychosis F29 Schizoaffective disorder F25.9 Alcohol use Z72.89
[2020-07-03 22:00] VITALS: BP 132/78; PULSE 117; RESP 17; TEMP 36.8; O2SAT 94
--- NOTE | 2020-07-03 23:56 | PC.NURSE ---
pt offer prn sleep and anxiety meds but refused.
[2020-07-04 06:00] VITALS: BP 131/63; PULSE 81; RESP 19; TEMP 36.7; O2SAT 99
[2020-07-04] MEDS: ARIPiprazole 10 mg Tablet 20 MG PO (08:36)
--- NOTE | 2020-07-04 09:58 | PM.NPN ---
Subjective NPU Subjective: Interval history: So what is this Abilify supposed to be doing poorly? Treatment plan explained. SO WHO MAY DO THE GOD OF FIGURING OUT HOW PEOPLE THINK AND MOTHER THEY ARE THINKING CORRECTLY!! Patient stomps off back to her room. Mental Status Exam MSE Comments: Mental Status Exam: This is a thin diminutive woman appearing approximately her stated age. She is stylishly dressed with good grooming. Eye contact is good. Psychomotoric activity is unremarkable. Appearance: hygiene is fair; no gross neurological deficits., gait is unremarkable; AIMS=0 Speech: Speech is of rapid rate and rhythm and often difficult to understand. In addition to being rapid, she mumbles. Thought processes: Thought processes are idiosyncratic and illogical.. Judgment is not adequate for safety. During the short interaction today, she demonstrated logical thinking and less flight of ideas. Associations: Loose and reference Psychotic processes: There is no indication of guarding or paranoia. There is no attention to the internal stimuli. Auditory and visual hallucinations are denied. Judgment: Insight is poor. Problem solving skills are not adequate for safety. She has difficulty with logical thinking. Orientation: The patient is oriented to person, place time and situation. Memory: Unable to assess memory as we have no correlating information to some of her rather bizarre personal reports of history. Attention: The patient is alert and interpersonally engaged. Language: Verbalizations are coherent. Fund of knowledge: Fund of knowledge is poor Affect/Mood: Affect is consistent with a manic mood. She denied suicidal ideation Affective range constricted Psychosis: perception and reality testing are severely impaired by her emotional volatility, and her idiosyncratic logic. Vitals/I&O/Wt Last Vital Signs Temp 98.0 F 07/04/20 06:00 Pulse 81 07/04/20 06:00 Resp 19 H 07/04/20 06:00 BP 131/63 07/04/20 06:00 Pulse Ox 99 07/04/20 06:00 Data NPU : 06/20/20 18:25 06/20/20 18:25 A&P Assessment and plan (1) Psychosis: Status: Acute (2) Schizoaffective disorder: Status: Acute (3) Alcohol use: Status: Acute Additional A&P Information (1) Psychosis: (2) Schizoaffective disorder: (3) Alcohol use: Hospital Day #12 Ana presents today seeming a bit activated. She had her hearing that this writer technical publications attended, but she chose not to attend. She agreed that it is probably in her best interest that she stay, showing some improved insight, but continuing to have disorganization and moments where it is really hard to follow what she is talking about. She did report wanting us to consider an antibiotic for her mouth. Her gums are in significant disrepair with loose teeth and many teeth that have fallen out. She acknowledges that this is something she needs to take care of, and it gets neglected when she is not well. We discussed the risks, benefits, and alternatives of increasing the Abilify in the morning. I also attempted to discuss the possibility of her taking the injection, which she was not open to, but she understood and agreed to proceed as is documented in this note. 1. Continue current medication. 2. Continue every 15 minute checks for safety. 3. Encourage individual, group and milieu therapy. 4. Will continue to encourage considering the ALFARO Abilify Maintena 5. 21 day hold granted. Hospital day #14 They drilled a hole in my stomach and all that water came out. Patient states that she has no specific complaint today but feels she needs to be here a few more days. She has to pay her mortgage. But she feels that is going to be okay. She discussed her history. She took a few semesters of college. 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 Plan: Continue Abilify 20 mg in the morning as long as she is compliant. If noncompliant will provide Geodon 20 mg IM. Trazodone as needed insomnia at bedtime was replaced with olanzapine. Hospital day #15: The patient was emotionally volatile and verbalized persecutory [place] deviation, her thought processes were more coherent and she demonstrated less flight of ideas. This is day #2 of compliance with her Abilify 20 mg in the morning. Involuntary Hold Information 96 Hour Hold: 96 Hour Involuntary Admission: Yes 96 Hour Hold Ending Date: 06/26/20 96 Hour Hold Ending Time: 19:30 Attestations NPU Medical Necessity Statement*: Patient will remain in the hospital another 14 days for the completion of her 21-day involuntary commitment. Coding Level of Care Code Acute Superintendent Stevedoring for Gustavo Burns Diagnoses Psychosis F29 Schizoaffective disorder F25.9 Alcohol use Z72.89
[2020-07-04] MEDS: LORazepam 2 mg/mL INJ 1 mL IM (13:21)
[2020-07-04] MEDS: diphenhydrAMINE 50 mg/mL SDV 1mL IM (13:21)
[2020-07-04 14:00] VITALS: BP 129/82; PULSE 62; RESP 18; TEMP 36.6; O2SAT 95
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
[2020-07-04] MEDS: divalproex DR 500 mg Tablet PO (17:52)
[2020-07-04] MEDS: hyDROXYzine 25 mg Capsule 50 MG PO (20:09)
[2020-07-04] MEDS: OLANZapine 10 mg ODT PO (20:09)
[2020-07-04 20:14] VITALS: RESP 17
--- NOTE | 2020-07-04 22:00 | PC.NURSE ---
PT GIVEN SCHEDULED HS ZYPREXA WITHOUT DIFFICULTY. OFF GOING CHARGE NURSE RECOMMENDED PT ALSO BE GIVEN PRN ANXIETY MED VISTARIL. WHEN MED WAS GIVEN TO PT, PT TOOK 1 CAP AND BROKE IT OPEN SPILLING IT ON THE BED AND SWALLOWED THE SECOND CAP WITHOUT DIFFICULTY.
[2020-07-05 06:00] VITALS: BP 86/63; PULSE 62; RESP 17; TEMP 36.2; O2SAT 95
[2020-07-05] MEDS: divalproex DR 500 mg Tablet PO ×2 (08:46→17:56)
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
[2020-07-05 13:25] VITALS: BP 143/83; PULSE 87; RESP 18; TEMP 36.4; O2SAT 98
[2020-07-05 20:52] VITALS: BP 107/50; PULSE 88; RESP 19; TEMP 36.8; O2SAT 96
--- NOTE | 2020-07-05 22:13 | PC.NURSE ---
patient refused her Zyprexa at 2100 on 07/05/20.
[2020-07-06] MEDS: hyDROXYzine 25 mg Capsule 50 MG PO (02:53)
[2020-07-06 06:00] VITALS: BP 132/85; PULSE 62; RESP 17; TEMP 36.4; O2SAT 97
[2020-07-06] MEDS: divalproex DR 500 mg Tablet PO ×2 (09:32→17:54)
[2020-07-06 14:00] VITALS: BP 150/83; PULSE 92; RESP 20; TEMP 36.7; O2SAT 98
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
[2020-07-06 20:57] VITALS: BP 134/82; PULSE 81; RESP 20; TEMP 36.3; O2SAT 96
[2020-07-06] MEDS: OLANZapine 10 mg ODT PO (21:15)
[2020-07-07 06:00] VITALS: BP 129/84; PULSE 77; RESP 17; TEMP 36.6; O2SAT 99
[2020-07-07] MEDS: divalproex DR 500 mg Tablet PO ×2 (08:11→17:11)
[2020-07-07] MEDS: metoprolol succinate ER (24 HR) 25 mg Tablet PO (08:11)
--- NOTE | 2020-07-07 08:12 | PC.NURSE ---
refused scheduled mtv, folic acid, thiamine
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
[2020-07-07 14:00] VITALS: BP 150/83; PULSE 77; RESP 18; TEMP 36.9; O2SAT 97
--- NOTE | 2020-07-07 21:11 | PC.NURSE ---
Patient sleeping. This nurse will complete shift assessment once she awakes.
[2020-07-07 22:00] VITALS: RESP 19
[2020-07-07] MEDS: OLANZapine 10 mg ODT PO (23:21)
[2020-07-08 06:00] VITALS: RESP 16
[2020-07-08] MEDS: divalproex DR 500 mg Tablet PO ×2 (07:53→16:52)
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
[2020-07-08 13:32] VITALS: BP 112/65; PULSE 94; RESP 20; TEMP 36.9; O2SAT 97
[2020-07-08 21:24] VITALS: BP 118/70; PULSE 89; RESP 22; TEMP 36.3; O2SAT 96
--- NOTE | 2020-07-08 23:48 | PC.NURSE ---
2100 ZYPREXA AFTER SEVERAL ATTEMPTS FROM THIS NURSE AND CHARGE NURSE LATASHA SANZ PT REFUSED 2100 ZYPREXA ZMADINA. WILL CONTINUE TO MONITOR PT.
[2020-07-09 06:00] VITALS: BP 124/69; PULSE 74; RESP 17; TEMP 36.7; O2SAT 97
[2020-07-09 07:54] LABS: Valproic Acid Level 57.2 ug/mL (50-100)
[2020-07-09] MEDS: divalproex DR 500 mg Tablet PO ×2 (08:37→17:19)
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
[2020-07-09] MEDS: lithium carbonate 300 mg Capsule PO ×2 (13:02→17:19)
[2020-07-09 13:45] VITALS: BP 142/82; PULSE 80; RESP 18; TEMP 36.6; O2SAT 99
[2020-07-09] MEDS: hyDROXYzine 25 mg Capsule 50 MG PO (21:51)
[2020-07-09] MEDS: OLANZapine 10 mg ODT 15 MG PO (21:53)
[2020-07-09 22:00] VITALS: BP 123/76; PULSE 93; RESP 18; TEMP 36.7; O2SAT 97
--- NOTE | 2020-07-09 23:40 | PC.NURSE ---
Pt given scheduled zyprexa. RN stated pt wanted anxiety med when Nurse Assessment was completed.
[2020-07-10 06:00] VITALS: RESP 16
[2020-07-10] MEDS: lithium carbonate 300 mg Capsule PO ×2 (08:33→17:10)
[2020-07-10] MEDS: divalproex DR 500 mg Tablet PO ×2 (08:34→17:11)
[2020-07-10 13:31] VITALS: BP 118/63; PULSE 100; RESP 20; TEMP 36.7; O2SAT 100
--- NOTE | 2020-07-10 17:54 | PM.NPN ---
Subjective NPU Subjective: Interval history: Patient has not changed a great deal. She rambles persistently at a very high pace, spewing flights of ideas and incoherent verbalization. Her thoughts race and communication with her is impossible as she escalates until she jumps up and storms out the door, which she slams loudly behind her. Medications: Reviewed: Yes Medication Review Details: Current Medications Acetaminophen (Tylenol) 650 mg PO Q4H PRN PRN Reason: MILD PAIN Benztropine Mesylate (Cogentin) 1 mg PO BID PRN PRN Reason: Mild Extrapyramidal symptoms Camphor/Menthol/Phenol (Blistex) 1 applic TOPICAL Q1H PRN PRN Reason: DRYNESS Clonazepam (Klonopin) 1 mg PO BEDTIME PRN PRN Reason: insomnia Diphenhydramine HCl (Benadryl) 50 mg IM ONCE PRN PRN Reason: Severe Extrapyramidal Symptoms Last Admin: 07/04/20 13:21 Dose: 50 mg Documented by: Diphenhydramine HCl (Benadryl) 50 mg IM Q4H PRN PRN Reason: Severe Aggression Divalproex Sodium (Depakote Dr) 500 mg PO BID [facility] Last Admin: 07/10/20 17:11 Dose: 500 mg Documented by: Haloperidol (Haldol) 5 mg PO Q4H PRN PRN Reason: AGITATION Haloperidol Lactate (Haldol Inj) 5 mg IM Q4H PRN PRN Reason: Severe Aggression Hydroxyzine Pamoate (Vistaril) 50 mg PO Q6H PRN PRN Reason: ANXIETY Last Admin: 07/09/20 21:51 Dose: 50 mg Documented by: [place] Carbonate (Eskalith) 300 mg PO BID [facility] Last Admin: 07/10/20 17:10 Dose: 300 mg Documented by: Loperamide HCl (Imodium Capsule) 2 mg PO Q6H PRN PRN Reason: DIARRHEA Lorazepam (Ativan) 2 mg IM Q4H PRN PRN Reason: Severe Aggression Last Admin: 07/04/20 13:21 Dose: 2 mg Documented by: Nicotine (Nicoderm 21 Mg Patch) 1 patch TRANSDERMA DAILY PRN PRN Reason: NICOTINE WITHDRAWAL Nicotine Polacrilex (Nicorette) 2 mg BUCCAL Q2H PRN PRN Reason: NICOTINE WITHDRAWAL Olanzapine (Zyprexa Zydis) 5 mg PO Q4H PRN PRN Reason: Agitation/Psychosis Olanzapine (Zyprexa Zydis) 15 mg PO BEDTIME [facility] Last Admin: 07/09/20 21:53 Dose: 15 mg Documented by: Ondansetron HCl (Zofran) 4 mg PO Q6H PRN PRN Reason: NAUSEA AND VOMITING Ziprasidone (Geodon) 20 mg IM BEDTIME PRN PRN Reason: REFUSAL OF PO MEDICATION I note with concern that her glomerular filtration rate is flagging and I think we will need to back off on the lithium, of which I am ordering a blood level as well as that of divalproex. We will have to think of something else, I fear. Mental Status Exam MSE Comments: Suffice it to say that a formal mental status examination is not to be had. The patient's angry and agitated, her thoughts are racing and her speech is pressured and rambling without coherence. She is obviously in a florid manic state. Vitals/I&O/Wt Last Vital Signs Temp 98.0 F 07/10/20 13:31 Pulse 100 07/10/20 13:31 Resp 20 H 07/10/20 13:31 BP 118/63 07/10/20 13:31 Pulse Ox 100 07/10/20 13:31 Weight last 48 hrs Weight 117 lb Physical Exam Narrative: EXAM NARRATIVE: Const: COMMON NORMALS: patient oriented x3, no limitations, healthy appearing and well nourished GENERAL APPEARANCE: cooperative and well developed HENMT: COMMON NORMALS: normocephalic, atraumatic, external ears normal, EAC's normal and Normal external nose present HEAD & SCALP: normal to inspection, normocephalic and atraumatic FACE & SINUS: normal facial exam and face symmetric NOSE: Normal external nose present and Normal nares present EXTERNAL EAR: Yes external ears normal EXTERNAL AUDITORY CANAL: EAC's normal MOUTH: Normal oral and palatal mucosa present, lip normal and tongue normal Eye: COMMON NORMALS: Equal, round and reactive pupils present and conjunctivae normal GENERAL EYE: appearance normal, both eyes and all related structures ALIGNMENT: Yes alignment normal PERIORBITAL: periorbital findings normal EYELID: eyelids normal CONJUNCTIVA: Yes conjunctivae normal SCLERA: sclerae normal PUPIL: Yes Equal, round and reactive pupils present Neck/C-Spine: COMMON NORMALS: full ROM, no lymphadenopathy, supple, no meningeal signs and no JVD GENERAL: Yes normal visual inspection and Yes trachea midline Chest: COMMONS NORMALS: normal inspection of the chest and normal palpation of entire chest wall Resp: COMMON NORMALS: normal respiratory effort, No retractions and No use of accessory muscles EFFORT & INSPECTION: Yes able to speak in complete sentences and Yes symmetric chest movement AUSCULTATION: no crackles, no rales, no rhonchi and no wheezes Cardio: COMMON NORMALS: no JVD, regular rate, regular rhythm, S1 normal heart sound present and S2 normal heart sound present RATE: regular rate RHYTHM: regular rhythm HEART SOUNDS: S1 normal heart sound present, S2 normal heart sound present, no click, no gallops, no murmurs, no rubs and abnormal split S2 GI: COMMON NORMALS: Soft to palpation and No hepatosplenomegaly present PALPATION: Yes Soft to palpation, No Tenderness to palpation present (GI), No Guarding due to palpation present (GI), No Rigid due to palpation, Yes No hepatosplenomegaly present, No Hernia present, No Palpable mass present and No Pulsatile mass present : COMMON NORMALS: Yes no CVA tenderness BLADDER/KIDNEY EXAM: Yes no CVA tenderness EXTERNAL FEMALE EXAM: No Hernia present Back/Pelvis: COMMON NORMALS: no CVA tenderness, thoracic and lumbar spine normal to inspection, no thoracic nor lumbar tenderness and thoraco-lumbar ROM normal Extremity: COMMON NORMALS: normal to inspection, full ROM, capillary refill normal, no joint enlargement, no clubbing, cyanosis or edema and no calf tenderness Neuro: COMMON NORMALS: patient oriented x3, CN's II-XII intact bilaterally, moves all extremities, no focal motor deficits and no sensory deficits noted MENINGEAL SIGNS: Yes no meningeal signs SPEECH: speech normal Psych: See mental status. Skin: COMMON NORMALS: no rashes or lesions noted, turgor normal, no jaundice, no petechiae and no mottling GENERAL SKIN EXAM: no rashes or lesions noted and turgor normal Data NPU : 06/20/20 18:25 06/20/20 18:25 A&P Assessment and plan (1) Nenita: We have to review and revise. Status: Acute Involuntary Hold Information 96 Hour Hold: 96 Hour Involuntary Admission: Yes 96 Hour Hold Ending Date: 06/26/20 96 Hour Hold Ending Time: 19:30 Attestations NPU Medical Necessity Statement*: I anticipate 7 to 10 midnights. Time Spent in Patient Care: Greater than 35 minutes 40 minutes Coding Level of Care Code Acute Hogshead Inspector for Chg Fwd Diagnoses Nenita F30.9
[2020-07-10 20:24] VITALS: BP 121/81; PULSE 70; RESP 18; TEMP 36.4; O2SAT 98
[2020-07-10] MEDS: OLANZapine 10 mg ODT 15 MG PO (20:49)
--- NOTE | 2020-07-10 21:35 | PC.NURSE ---
pt given scheduled zyprexa without difficulty.
[2020-07-11 06:00] VITALS: RESP 16
[2020-07-11 07:03] LABS: Lithium 0.4 mmol/L (0.6-1.2); Valproic Acid Level 53.8 ug/mL (50-100)
[2020-07-11] MEDS: divalproex DR 500 mg Tablet PO ×2 (07:37→17:23)
[2020-07-11] MEDS: lithium carbonate 300 mg Capsule PO (07:37)
--- NOTE | 2020-07-11 10:25 | PM.NPN ---
Subjective NPU Subjective: Interval history: Dialogue with the patient on subjective intrapsychic matters is not possible. She wanders around and rambles at length, making no sense at all. Medications: Reviewed: Yes Medication Review Details: Current Medications Acetaminophen (Tylenol) 650 mg PO Q4H PRN PRN Reason: MILD PAIN Benztropine Mesylate (Cogentin) 1 mg PO BID PRN PRN Reason: Mild Extrapyramidal symptoms Camphor/Menthol/Phenol (Blistex) 1 applic TOPICAL Q1H PRN PRN Reason: DRYNESS Clonazepam (Klonopin) 1 mg PO BEDTIME PRN PRN Reason: insomnia Diphenhydramine HCl (Benadryl) 50 mg IM ONCE PRN PRN Reason: Severe Extrapyramidal Symptoms Last Admin: 07/04/20 13:21 Dose: 50 mg Documented by: Diphenhydramine HCl (Benadryl) 50 mg IM Q4H PRN PRN Reason: Severe Aggression Divalproex Sodium (Depakote Dr) 500 mg PO BID [facility] Last Admin: 07/11/20 07:37 Dose: 500 mg Documented by: Haloperidol (Haldol) 5 mg PO Q4H PRN PRN Reason: AGITATION Haloperidol Lactate (Haldol Inj) 5 mg IM Q4H PRN PRN Reason: Severe Aggression Hydroxyzine Pamoate (Vistaril) 50 mg PO Q6H PRN PRN Reason: ANXIETY Last Admin: 07/09/20 21:51 Dose: 50 mg Documented by: [place] Carbonate (Eskalith) 300 mg PO BID [facility] Last Admin: 07/11/20 07:37 Dose: 300 mg Documented by: Loperamide HCl (Imodium Capsule) 2 mg PO Q6H PRN PRN Reason: DIARRHEA Lorazepam (Ativan) 2 mg IM Q4H PRN PRN Reason: Severe Aggression Last Admin: 07/04/20 13:21 Dose: 2 mg Documented by: Nicotine (Nicoderm 21 Mg Patch) 1 patch TRANSDERMA DAILY PRN PRN Reason: NICOTINE WITHDRAWAL Nicotine Polacrilex (Nicorette) 2 mg BUCCAL Q2H PRN PRN Reason: NICOTINE WITHDRAWAL Olanzapine (Zyprexa Zydis) 5 mg PO Q4H PRN PRN Reason: Agitation/Psychosis Olanzapine (Zyprexa Zydis) 15 mg PO BEDTIME [facility] Last Admin: 07/10/20 20:49 Dose: 15 mg Documented by: Ondansetron HCl (Zofran) 4 mg PO Q6H PRN PRN Reason: NAUSEA AND VOMITING Ziprasidone (Geodon) 20 mg IM BEDTIME PRN PRN Reason: REFUSAL OF PO MEDICATION Mental Status Exam MSE Comments: formal mental status examination is not to be had. The patient's angry and agitated, her thoughts are racing and her speech is pressured and rambling without coherence. She is obviously in a florid manic state. Vitals/I&O/Wt Last Vital Signs Temp 97.5 F L 07/10/20 20:24 Pulse 70 07/10/20 20:24 Resp 16 07/11/20 06:00 BP 121/81 07/10/20 20:24 Pulse Ox 98 07/10/20 20:24 Data NPU : 06/20/20 18:25 06/20/20 18:25 A&P Assessment and plan (1) Nenita: More aggressive pharmacotherapy is indicated. Depakote level is marginal and lithium level is low. Status: Acute (2) Psychosis: How much of this is driven by her bipolar disease element is not yet clear to me. Status: Acute Involuntary Hold Information 96 Hour Hold: 96 Hour Involuntary Admission: Yes 96 Hour Hold Ending Date: 06/26/20 96 Hour Hold Ending Time: 19:30 Attestations NPU Medical Necessity Statement*: I anticipate 10-12 midnights Time Spent in Patient Care: 16 - 35 minutes Coding Level of Care Code Acute Editor School Photograph for Gustavo Burns Diagnoses Nenita F30.9 Psychosis F29
[2020-07-11 13:56] VITALS: BP 118/77; PULSE 93; RESP 18; TEMP 36.4; O2SAT 98
[2020-07-11] MEDS: lithium carbonate 300 mg Capsule 450 MG PO (20:35)
[2020-07-11] MEDS: OLANZapine 10 mg ODT 15 MG PO (20:38)
--- NOTE | 2020-07-11 21:18 | PC.NURSE ---
pt given scheduled zyprexa and lithium per order.
[2020-07-11 22:00] VITALS: BP 82/56; PULSE 99; RESP 18; TEMP 36.9; O2SAT 97
[2020-07-12 06:00] VITALS: BP 110/71; PULSE 102; RESP 18; TEMP 36.7; O2SAT 96
[2020-07-12] MEDS: lithium carbonate 300 mg Capsule PO ×2 (06:19→20:30)
[2020-07-12] MEDS: divalproex DR 500 mg Tablet PO ×2 (07:54→18:29)
[2020-07-12 07:55] LABS: Lithium 0.6 mmol/L (0.6-1.2)
[2020-07-12 14:00] VITALS: BP 120/78; PULSE 91; RESP 20; TEMP 36.7; O2SAT 96
--- NOTE | 2020-07-12 19:26 | PM.NPN ---
Subjective NPU Subjective: Interval history: The patient starts to incoherently ramble when first she sees me. I have not had a sensible comment out of her. She paces hither and yon like a caged cat. Mental Status Exam MSE Comments: formal mental status examination is not to be had. The patient's angry and agitated, her thoughts are racing and her speech is pressured and rambling without coherence. She is obviously in a florid manic state. Vitals/I&O/Wt Last Vital Signs Temp 98.0 F 07/12/20 14:00 Pulse 91 07/12/20 14:00 Resp 20 H 07/12/20 14:00 BP 120/78 07/12/20 14:00 Pulse Ox 96 07/12/20 14:00 Data NPU : 06/20/20 18:25 06/20/20 18:25 Involuntary Hold Information 96 Hour Hold: 96 Hour Involuntary Admission: Yes 96 Hour Hold Ending Date: 06/26/20 96 Hour Hold Ending Time: 19:30 Attestations NPU Medical Necessity Statement*: I estimate 10-12 midnights Time Spent in Patient Care: less than 15 minutes Coding Level of Care Code Acute Outside Industrial Sales Representative for Gustavo Burns
[2020-07-12] MEDS: lithium carbonate 150 mg Capsule PO (20:31)
[2020-07-12] MEDS: OLANZapine 10 mg ODT 15 MG PO (20:36)
[2020-07-12 21:04] VITALS: BP 125/75; PULSE 79; RESP 18; TEMP 36.9; O2SAT 100
[2020-07-13 06:00] VITALS: BP 96/66; PULSE 76; RESP 18; TEMP 36.6; O2SAT 97
[2020-07-13] MEDS: lithium carbonate 300 mg Capsule PO (07:26)
[2020-07-13] MEDS: lithium carbonate 150 mg Capsule PO (07:27)
[2020-07-13] MEDS: divalproex DR 500 mg Tablet PO ×2 (08:52→17:14)
--- NOTE | 2020-07-13 12:01 | PC.NURSE ---
Patient is pacing and making laps inside the dayroom and then to her room. She is mumbling to herself.
--- NOTE | 2020-07-13 13:23 | PC.NURSE ---
Patient is sitting style near the dayroom in a corner. She says she is going to stay there until 2 and YOU CAN KISS MY ASS. if you don't like it. I am not siiting in my room.. but then again this is a room.. james She is rambling in the coles but not hurting herself or anyone else.
--- NOTE | 2020-07-13 13:52 | P.PN_ITS ---
Subjective NPU Subjective: Interval history: Ana presents today seeming cognizant of the fact that she is coming up on the end of her 21-day hold, and she did on her own accord attempt to address that issue with this casualty underwriter. We discussed the fact that we had significant concerns about her aggressive behavior recently and the fact that she still seems to be quite disorganized. As she has said in the past, she feels that she will be fine and wants to leave. We discussed the fact that we needed to way multiple factors and that we would consider the possibility about continuing the hold which was enough to get her to walk away from the interview. Otherwise, she has had some medication refusal. I reviewed with staff the fact that we needed to make sure that she was getting medication and if not, we would have to do forced medication for those refusals. We did have an opportunity to reach out to her daughter who gave us some sense of what the concerns were with the Invega injection which she had been on for a while and there were providers stating in notes that they felt she was improved but her daughter did say that there were side affects felt prohibitive. We discussed the possibility of the other two primary long-acting injections, and she is not interested at all in any of the old medications, so we will need to make some decisions in that regard. Mental Status Exam MSE Comments: This is a diminutive, white female, with a buzz haircut, with adequate dress and grooming, limited eye contact. Poor dentition. Semi- cooperative with exam in no acute distress. Speech was decreased rate and volume with a strong [place] accent. Mood described as fine; affect subdued and guarded. Thought process linear at times, other times disorganized. Thought content: patient denied any suicidal or homicidal ideation, there were no delusions reported but she still remains paranoid. She does not appear to be attending to internal stimuli. Attention and concentration are limited but improving and memory is unreliable, but none were formally tested. Alert and oriented to person and place. Insight and judgment are impaired. Impulse control still limited. Vitals/I&O/Wt Last Vital Signs Temp 98.4 F 07/13/20 21:52 Pulse 89 07/13/20 21:52 Resp 21 H 07/13/20 21:52 BP 137/77 07/13/20 21:52 Pulse Ox 98 07/13/20 21:52 Data NPU : 07/21/20 18:25 06/20/20 18:25 A&P Assessment and plan (1) Nenita: Status: Acute (2) Schizoaffective disorder: Status: Acute (3) Psychosis: Status: Acute (4) Alcohol use: Status: Chronic Additional A&P Information This is a 59 year old, white female, with significant disorganization and psychosis that has not been responsive to Abilify including the long-acting injectable. She also has a history of Invega, but there is no interest on her part to restart it, and some support from the family that it was not the best from a side affect profile. She is here on a 21-day hold. Continue current medication. We will evaluate historically whether something like Haldol or Prolixin might be of some assistance. An attempt with Clozaril might be warranted, but she is not going to agree to it and adherence is the most critical piece and she is not on guardianship, so we will explore those medication possibilities. Continue q 15-minute checks for safety. Encourage individual, group, and milieu therapy. I filed paperwork for a 90-day hold and will advise her of that tomorrow. Involuntary Hold Information 96 Hour Hold: 96 Hour Involuntary Admission: Yes 96 Hour Hold Ending Date: 06/26/20 96 Hour Hold Ending Time: 19:30 Attestations NPU Medical Necessity Statement*: Inpatient hospitalization is medically necessary and the clinically appropriate intervention at this time. We will monitor medications and make changes as indicated. Likely length of stay seven to ten days. We will be filing a 90-day hold paperwork. Coding Level of Care Code Acute Retail Marketing Manager for Gustavo Burns Diagnoses Nenita F30.9 Schizoaffective disorder F25.9 Psychosis F29 Alcohol use Z72.89
[2020-07-13 14:00] VITALS: BP 132/62; PULSE 82; RESP 20; TEMP 36.7; O2SAT 99
[2020-07-13 21:52] VITALS: BP 137/77; PULSE 89; RESP 21; TEMP 36.9; O2SAT 98
[2020-07-14] MEDS: lithium carbonate 150 mg Capsule PO ×3 (01:29→20:56)
[2020-07-14] MEDS: lithium carbonate 300 mg Capsule PO ×3 (01:30→20:49)
[2020-07-14] MEDS: OLANZapine 10 mg ODT 15 MG PO ×2 (01:31→01:33)
[2020-07-14 06:00] VITALS: RESP 19
[2020-07-14] MEDS: divalproex DR 500 mg Tablet PO ×2 (08:43→17:09)
--- NOTE | 2020-07-14 11:27 | PC.RESP ---
Smoking Cessation information sent to patient.
--- NOTE | 2020-07-14 13:47 | P.PN_ITS ---
Subjective NPU Subjective: Interval history: Ana presented to the interview with significant resentment secondary to the attending 90 day hold that has been filed. She is resistant to her previous medication which was invading into however is not doing very well on current medication. She was not open to a trial of Clozaril, and she continues to function poorly. She is sleeping fine and eating okay. Mental Status Exam MSE Comments: This is a diminutive, white female, with a buzz haircut, with adequate dress and grooming, limited eye contact. Poor dentition. Mostly uncooperative with exam in no acute distress. Speech was decreased rate and volume with a strong [place] accent. Mood not answered; affect subdued and guarded. Thought process linear at times, other times disorganized. Thought content: patient denied any suicidal or homicidal ideation, there were no delusions reported but she still remains paranoid. She does not appear to be attending to internal stimuli. Attention and concentration are limited but improving and memory is unreliable, but none were formally tested. She is alert and oriented to person and place. Insight and judgment are impaired. Impulse co ntrol still limited. Vitals/I&O/Wt Last Vital Signs Temp 97.7 F 07/14/20 20:17 Pulse 77 07/14/20 20:17 Resp 18 07/14/20 20:17 BP 146/75 07/14/20 20:17 Pulse Ox 99 07/14/20 20:17 07/14/20 07/14/20 07/15/20 14:59 22:59 06:59 Intake Total 240 / 240 Balance 240 / 240 Data NPU : 06/20/20 18:25 06/20/20 18:25 A&P Additional A&P Information (1) Nenita: (2) Schizoaffective disorder: (3) Psychosis: (4) Alcohol use: This is a 59 year old, white female, with significant disorganization and psychosis that has not been responsive to Abilify including the long-acting injectable. She also has a history of Invega, but there is no interest on her part to restart it, and some support from the family that it was not the best from a side affect profile. She is here on a 21-day hold. Continue current medication. We will evaluate historically whether something like Haldol or Prolixin might be of some assistance. An attempt with Clozaril might be warranted, but she is not going to agree to it and adherence is the most critical piece and she is not on guardianship, so we will explore those medication possibilities. Continue q 15-minute checks for safety. Encourage individual, group, and milieu therapy. Hearing for 90 day hold on Friday. Involuntary Hold Information 96 Hour Hold: 96 Hour Involuntary Admission: Yes 96 Hour Hold Ending Date: 06/26/20 96 Hour Hold Ending Time: 19:30 Attestations NPU Medical Necessity Statement*: Inpatient hospitalization is medically necessary and the clinically appropriate intervention at this time. We will monitor medications and make changes as indicated. Likely length of stay seven to ten days. Coding Level of Care Code Acute Gas Leak Inspector for Gustavo Burns
[2020-07-14 14:00] VITALS: BP 113/73; PULSE 88; RESP 18; TEMP 36.7; O2SAT 98
[2020-07-14 20:17] VITALS: BP 146/75; PULSE 77; RESP 18; TEMP 36.5; O2SAT 99
[2020-07-15 06:00] VITALS: BP 119/63; PULSE 81; RESP 15; TEMP 36.6; O2SAT 99
[2020-07-15] MEDS: lithium carbonate 300 mg Capsule PO ×2 (06:16→20:47)
[2020-07-15] MEDS: lithium carbonate 150 mg Capsule PO ×2 (06:16→20:47)
[2020-07-15] MEDS: divalproex DR 500 mg Tablet PO ×2 (09:05→17:48)
[2020-07-15 13:57] VITALS: BP 115/72; PULSE 93; RESP 19; TEMP 36.7
--- NOTE | 2020-07-15 16:39 | PM.NPN ---
Subjective NPU Subjective: Interval history: Ana presents today reporting that she is confused about what she needs to do to get discharged. We discussed the fact that she still is struggling with disorganization as well as being challenged by impulse control. We discussed the fact that there isn't a current discharge situation it seems like a viable path to success. She continues to sleep okay and eats fine. She is currently taking her medication as prescribed. Mental Status Exam MSE Comments: This is a diminutive, white female, with a buzz haircut, with adequate dress and grooming, limited eye contact. Poor dentition. Mostly uncooperative with exam in no acute distress. Speech was decreased rate and volume with a strong [place] accent. Mood described as okay; affect subdued and guarded. Thought process linear at times, other times disorganized. Thought content: patient denied any suicidal or homicidal ideation, there were no delusions reported but she still remains paranoid. She does not appear to be attending to internal stimuli. Attention and concentration are limited but improving and memory is unreliable, but none were formally tested. She is alert and oriented to person and place. Insight and judgment are impaired. Impulse control still limited. Vitals/I&O/Wt Last Vital Signs Temp 97.8 F 07/15/20 06:00 Pulse 81 07/15/20 06:00 Resp 15 07/15/20 06:00 BP 119/63 07/15/20 06:00 Pulse Ox 99 07/15/20 06:00 Data NPU : 06/20/20 18:25 06/20/20 18:25 A&P Additional A&P Information (1) Nenita: (2) Schizoaffective disorder: (3) Psychosis: (4) Alcohol use: This is a 59 year old, white female, with significant disorganization and psychosis that has not been responsive to Abilify including the long-acting injectable. She also has a history of Invega, but there is no interest on her part to restart it, and some support from the family that it was not the best from a side affect profile. She is here on a 21-day hold. Continue current medication. We will evaluate historically whether something like Haldol or Prolixin might be of some assistance. An attempt with Clozaril might be warranted, but she is not going to agree to it and adherence is the most critical piece and she is not on guardianship, so we will explore those medication possibilities. Continue q 15-minute checks for safety. Encourage individual, group, and milieu therapy. Hearing for 90 day hold on Friday. Involuntary Hold Information 96 Hour Hold: 96 Hour Involuntary Admission: Yes 96 Hour Hold Ending Date: 06/26/20 96 Hour Hold Ending Time: 19:30 Attestations NPU Medical Necessity Statement*: Inpatient hospitalization is medically necessary and the clinically appropriate intervention at this time. We will monitor medications and make changes as indicated. Likely length of stay seven to ten days. Coding Level of Care Code Acute Cable Television Line Technician for Gustavo Burns
[2020-07-15 20:23] VITALS: BP 149/76; PULSE 93; RESP 18; TEMP 36.2; O2SAT 98
[2020-07-16 06:00] VITALS: BP 129/75; PULSE 63; RESP 15; TEMP 36.2; O2SAT 99
[2020-07-16] MEDS: lithium carbonate 150 mg Capsule PO ×2 (06:08→20:50)
[2020-07-16] MEDS: lithium carbonate 300 mg Capsule PO ×2 (06:08→20:50)
[2020-07-16] MEDS: divalproex DR 500 mg Tablet PO ×2 (08:10→17:34)
[2020-07-16 14:00] VITALS: BP 126/78; PULSE 102; RESP 18; TEMP 37.2
--- NOTE | 2020-07-16 15:39 | P.PN_ITS ---
Subjective NPU Subjective: Interval history: Ana presented today reporting multiple different confusing thoughts. Wondering if her having to go the bathroom had some adventism implications. Focusing on her dentition as she commonly does but then describing unconnected realities to her dental concerns. And not making much sense in general. Unfortunately the thing that she is fairly well focused on is her unwillingness to do different things with medications. We discussed getting drug levels on her lithium and Depakote in the morning with hopes of maximizing those medications before moving to some antipsychotic that allows us some injection capacity which leaves us Prolixin, Haldol and maybe Geodon given that we could give her injections if she refused oral. He is eating okay and sleeping fine. Mental Status Exam MSE Comments: This is a diminutive, white female, with a buzz haircut, with adequate dress and grooming, limited eye contact. Poor dentition. Mostly uncooperative with exam in no acute distress. Speech was decreased rate and volume with a strong [place] accent. Mood described as fine; affect subdued and guarded. Thought process linear at times, most times disorganized. Thought content: patient denied any suicidal or homicidal ideation, there were no delusions reported but she still remains paranoid. She does not appear to be attending to internal stimuli. Attention and concentration are limited but improving and memory is unreliable, but none were formally tested. She is alert and oriented to person and place. Insight and judgment are impaired. Impulse control still limited. Vitals/I&O/Wt Last Vital Signs Temp 98.9 F 07/16/20 14:00 Pulse 102 H 07/16/20 14:00 Resp 18 07/16/20 14:00 BP 126/78 07/16/20 14:00 Pulse Ox 99 07/16/20 06:00 Weight last 48 hrs Weight 55.508 kg Data NPU : 06/20/20 18:25 06/20/20 18:25 A&P Additional A&P Information (1) Nenita: (2) Schizoaffective disorder: (3) Psychosis: (4) Alcohol use: This is a 59 year old, white female, with significant disorganization and psychosis that has not been responsive to Abilify including the long-acting injectable. She also has a history of Invega, but there is no interest on her part to restart it, and some support from the family that it was not the best from a side affect profile. She is here on a 21-day hold. Continue current medication. We will evaluate historically whether something like Haldol or Prolixin might be of some assistance. An attempt with Samuel miller ight be warranted, but she is not going to agree to it and adherence is the most critical piece and she is not on guardianship, so we will explore those medication possibilities. Continue q 15-minute checks for safety. Encourage individual, group, and milieu therapy. Hearing for 90 day hold tomorrow. Involuntary Hold Information 96 Hour Hold: 96 Hour Involuntary Admission: Yes 96 Hour Hold Ending Date: 06/26/20 96 Hour Hold Ending Time: 19:30 Attestations NPU Medical Necessity Statement*: Inpatient hospitalization is medically necessary and the clinically appropriate intervention at this time. We will monitor medications and make changes as indicated. Likely length of stay seven to ten days. Coding Level of Care Code Acute Endodontics Dentist for Gustavo Burns
[2020-07-16 20:42] VITALS: BP 168/79; PULSE 70; RESP 21; TEMP 36.9; O2SAT 100
[2020-07-16] MEDS: OLANZapine 10 mg ODT 15 MG PO (20:52)
[2020-07-17 06:00] VITALS: BP 116/79; PULSE 84; RESP 20; TEMP 37; O2SAT 96
[2020-07-17] MEDS: lithium carbonate 300 mg Capsule PO ×2 (06:53→20:58)
[2020-07-17] MEDS: lithium carbonate 150 mg Capsule PO ×2 (06:55→20:53)
[2020-07-17 07:32] LABS: Valproic Acid Level 39.7 ug/mL (50-100)
[2020-07-17 07:33] LABS: Lithium 0.6 mmol/L (0.6-1.2)
[2020-07-17] MEDS: divalproex DR 500 mg Tablet PO ×2 (08:27→18:56)
[2020-07-17 13:21] VITALS: BP 121/82; PULSE 76; RESP 18; TEMP 36.5; O2SAT 95
--- NOTE | 2020-07-17 17:24 | P.PN_ITS ---
Subjective NPU Subjective: Interval history: Ana presents today fairly withdrawn. She is upset about the 90-day hold and of course does not understand why we continue in this fashion; however, she is not able to really articulate her feelings. She is mostly manifested in angry stares and not responding to questions. She did not go argue her case however and more or less stipulated to the position but is still resistant to certain medication considerations. We discussed the fact that we were going to increase her Depakote and possibly her [place] to maximize the dose as the levels returned on the low side of normal. Otherwise, she is appearing to sleep okay and eating fine. Mental Status Exam MSE Comments: This is a diminutive, white female, with a buzz haircut, with adequate dress and grooming, limited eye contact. Poor dentition. Mostly uncooperative with exam in no acute distress. Speech was decreased rate and volume with a strong [place] accent. Mood described as not answered; affect subdued and guarded. Thought process linear at times, most times disorganized. Thought content: patient did not demonstrate aggression toward self or others, there were no delusions reported but she still remains paranoid. She does not appear to be attending to internal stimuli. Attention and concentration are limited but improving and memory is unreliable, but none were formally tested. She is alert and oriented to person and place. Insight and judgment are impaired. Impulse control still limited. Vitals/I&O/Wt Last Vital Signs Temp 97.6 F 07/17/20 20:10 Pulse 69 07/17/20 20:10 Resp 17 07/17/20 20:10 BP 125/85 07/17/20 20:10 Pulse Ox 99 07/17/20 20:10 Weight last 48 hrs Weight 55.508 kg Data NPU : 06/20/20 18:25 06/20/20 18:25 A&P Additional A&P Information (1) Nenita: (2) Schizoaffective disorder: (3) Psychosis: (4) Alcohol use: This is a 59 year old, white female, with significant disorganization and psychosis that has not been responsive to Abilify including the long-acting injectable. She also has a history of Invega, but there is no interest on her pa rt to restart it, and some support from the family that it was not the best from a side affect profile. She is here on a 21-day hold. Continue current medication. We will evaluate historically whether something like Haldol or Prolixin might be of some assistance. An attempt with Clozaril might be warranted, but she is not going to agree to it and adherence is the most critical piece and she is not on guardianship, so we will explore those medication possibilities. Continue q 15-minute checks for safety. Increase Depakote to thousand milligrams by mouth twice a day. Continue to consider an antipsychotic. Encourage individual, group, and milieu therapy. Hearing for 90 day hold tomorrow. Involuntary Hold Information 96 Hour Hold: 96 Hour Involuntary Admission: Yes 96 Hour Hold Ending Date: 06/26/20 96 Hour Hold Ending Time: 19:30 Attestations NPU Medical Necessity Statement*: Inpatient hospitalization is medically necessary and the clinically appropriate intervention at this time. We will monitor medications and make changes as indicated. Likely length of stay seven to ten days. Coding Level of Care Code Acute Cutting Machine Operator Helper for Gustavo Burns
[2020-07-17 20:10] VITALS: BP 125/85; PULSE 69; RESP 17; TEMP 36.4; O2SAT 99
[2020-07-17] MEDS: OLANZapine 10 mg ODT 15 MG PO (20:59)
[2020-07-18 06:00] VITALS: BP 106/72; PULSE 100; RESP 13; TEMP 36.7; O2SAT 96
[2020-07-18] MEDS: lithium carbonate 300 mg Capsule PO ×2 (06:39→21:46)
[2020-07-18] MEDS: lithium carbonate 150 mg Capsule PO ×2 (06:42→21:46)
[2020-07-18] MEDS: divalproex DR 500 mg Tablet 1000 MG PO ×2 (08:15→17:41)
[2020-07-18 13:50] VITALS: BP 123/80; PULSE 76; RESP 18; TEMP 37.1; O2SAT 100
--- NOTE | 2020-07-18 16:53 | PM.NPN ---
Subjective NPU Subjective: Interval history: Start presented today reporting that she had been on Haldol before but she is not sure if she's been on Prolixin and she endorsed what may have been EPS but is unclear. She does not want to take medication especially doesn't want to take any antipsychotics and feels that the current medications are enough. However we discussed the fact that she continues to be disorganized and to struggle. We discussed the risks benefits and alternatives of Geodon and Zyprexa and she understood and reluctantly agreed to proceed with a trial of Geodon. She continues to sleep fine and being sufficiently. Mental Status Exam MSE Comments: This is a diminutive, white female, with a buzz haircut, with adequate dress and grooming, limited eye contact. Poor dentition. Mostly uncooperative with exam in no acute distress. Speech was decreased rate and volume with a strong [place] accent. Mood described as not answered; affect subdued and guarded. Thought process linear at times, most times disorganized. Thought content: patient did not demonstrate aggression toward self or others, there were no delusions reported but she still remains paranoid. She does not appear to be attending to internal stimuli. Attention and concentration are limited but improving and memory is unreliable, but none were formally tested. She is alert and oriented to person and place. Insight and judgment are impaired. Impulse control still limited. Vitals/I&O/Wt Last Vital Signs Temp 97.8 F 07/18/20 21:14 Pulse 77 07/18/20 21:14 Resp 16 07/18/20 21:14 BP 106/53 07/18/20 21:14 Pulse Ox 99 07/18/20 21:14 Data NPU : 06/20/20 18:25 06/20/20 18:25 A&P Additional A&P Information (1) Nenita: (2) Schizoaffective disorder: (3) Psychosis: (4) Alcohol use: This is a 59 year old, white female, with significant disorganization and psychosis that has not been responsive to Abilify including the long-acting injectable. She also has a history of Invega, but there is no interest on her part to restart it, and some support from the family that it was not the best from a side affect profile. She is here on a 90-day hold. Continue current medication. Started Geodon every evening with meals with IM dosing with by mouth refusal. Continue q 15-minute checks for safety. Encourage individual, group, and milieu therapy. Had hearing for 90 day hold yesterday and is on 90-day-hold. Involuntary Hold Information 96 Hour Hold: 96 Hour Involuntary Admission: Yes 96 Hour Hold Ending Date: 06/26/20 96 Hour Hold Ending Time: 19:30 Attestations NPU Medical Necessity Statement*: Inpatient hospitalization is medically necessary and the clinically appropriate intervention at this time. We will monitor medications and make changes as indicated. Likely length of stay seven to ten days. Coding Level of Care Code Acute [employer] Sql Developer for Gustavo Burns
[2020-07-18] MEDS: ziprasidone hcl 20 mg Capsule PO (17:40)
[2020-07-18 21:14] VITALS: BP 106/53; PULSE 77; RESP 16; TEMP 36.6; O2SAT 99
[2020-07-18] MEDS: OLANZapine 5 mg ODT 15 MG PO (21:44)
--- NOTE | 2020-07-19 02:37 | PC.NURSE ---
at 2100 patient refused her Zyprexa because of it being three 5mg tabs . I attempted to explain the change from -12/02 tabs but she was to skeptical and refused to take them.
[2020-07-19 06:00] VITALS: BP 77/52; PULSE 67; RESP 15; TEMP 37.6; O2SAT 96
[2020-07-19] MEDS: lithium carbonate 300 mg Capsule PO (06:51)
[2020-07-19] MEDS: lithium carbonate 150 mg Capsule PO ×2 (06:52→20:43)
[2020-07-19] MEDS: divalproex DR 500 mg Tablet 1000 MG PO ×2 (08:42→16:42)
[2020-07-19 14:00] VITALS: BP 135/66; PULSE 100; RESP 20; TEMP 36.5; O2SAT 97
--- NOTE | 2020-07-19 16:41 | P.PN_ITS ---
Subjective NPU Subjective: Interval history: Ana presents today reporting that she had never been on Geodon but thinks that it was okay. We talked about Zyprexa which her daughter had brought up, but she reports that she thinks she remembers Zyprexa. We agreed to hold off and since she tolerated it go ahead and give her full dosing. She will change to 40 mg po bid. We discussed the risks, benefits, and alternatives of making this change and she appeared to understand and agreed to proceed as is documented in this note. She was advised that there would be a 20 mg injection for po refusal. Mental Status Exam MSE Comments: This is a diminutive, white female, with a buzz haircut, with adequate dress and grooming, limited eye contact. Poor dentition. Mostly uncooperative with exam in no acute distress. Speech was decreased rate and volume with a strong [place] accent. Mood described as not answered; affect subdued and guarded. Thought process linear at times, most times disor ganized. Thought content: patient did not demonstrate aggression toward self or others, there were no delusions reported but she still remains paranoid. She does not appear to be attending to internal stimuli. Attention and concentration are limited but improving and memory is unreliable, but none were formally tested. She is alert and oriented to person and place. Insight and judgment are impaired. Impulse control still limited. Vitals/I&O/Wt Last Vital Signs Temp 97.7 F 07/19/20 14:00 Pulse 100 07/19/20 14:00 Resp 20 H 07/19/20 14:00 BP 135/66 07/19/20 14:00 Pulse Ox 97 07/19/20 14:00 Data NPU : 06/20/20 18:25 06/20/20 18:25 A&P Additional A&P Information (1) Nenita: (2) Schizoaffective disorder: (3) Psychosis: (4) Alcohol use: This is a 59 year old, white female, with significant disorganization and psychosis that has not been responsive to Abilify including the long-acting injectable. She also has a history of Invega, but there is no interest on her part to restart it, and some support from the family that it was not the best from a side affect profile. She is here on a 90-day hold. Continue current medication. Continue q 15-minute checks for safety. Encourage individual, group, and milieu therapy. Involuntary Hold Information 96 Hour Hold: 96 Hour Involuntary Admission: Yes 96 Hour Hold Ending Date: 06/26/20 96 Hour Hold Ending Time: 19:30 Attestations NPU Medical Necessity Statement*: Inpatient hospitalization is medically necessary and the clinically appropriate intervention at this time. We will monitor medications and make changes as indicated. Likely length of stay seven to ten days. Coding Level of Care Code Acute Prototype Machinist for Gustvao Burns
[2020-07-19] MEDS: ziprasidone hcl 40 mg Capsule PO (16:42)
[2020-07-19 20:28] VITALS: RESP 15
[2020-07-19] MEDS: OLANZapine 5 mg ODT 15 MG PO (20:44)
[2020-07-20] MEDS: lithium carbonate 300 mg Capsule PO ×3 (01:50→21:07)
[2020-07-20 06:00] VITALS: BP 122/79; PULSE 72; RESP 17; TEMP 36.7; O2SAT 100
[2020-07-20] MEDS: lithium carbonate 150 mg Capsule PO ×2 (06:50→21:06)
[2020-07-20] MEDS: divalproex DR 500 mg Tablet 1000 MG PO ×2 (08:39→17:21)
[2020-07-20] MEDS: ziprasidone hcl 40 mg Capsule PO ×2 (08:40→17:21)
--- NOTE | 2020-07-20 11:49 | PM.NPN ---
Subjective NPU Subjective: Interval history: Ana presents today reporting that she was thinking about her place of residence and wondering if she will be able to go back there or if she should go back there. She had a fairly reasonable conversation with this feature writer showing a possible movement in her disorganization possibly. Otherwise she was calm. She even identified that she was not being aggressive and feeling aggressive. She is eating okay and sleeping fine. I am not seeing her do any of the cleaning behavior that she had done before and appearing fairly calm. Mental Status Exam MSE Comments: This is a diminutive, white female, with a buzz haircut, with adequate dress and grooming, limited eye contact. Poor dentition. A little more cooperative with exam in no acute distress. Speech was decreased rate and volume with a strong [place] accent. Mood described as alright; affect subdued and a bit less guarded. Thought process linear at times, less disorganized. Thought content: patient did not demonstrate aggression toward self or others, there were no delusions reported but she still remains paranoid. She does not appear to be attending to internal stimuli. Attention and concentration are improving and memory is unreliable, but none were formally tested. She is alert and oriented to person and place. Insight and judgment are impaired. Impulse control still limited. Vitals/I&O/Wt Last Vital Signs Temp 98.6 F 07/20/20 20:50 Pulse 74 07/20/20 20:50 Resp 16 07/20/20 20:50 BP 119/66 07/20/20 20:50 Pulse Ox 95 07/20/20 20:50 Data NPU : 06/20/20 18:25 06/20/20 18:25 A&P Additional A&P Information (1) Nenita: (2) Schizoaffective disorder: (3) Psychosis: (4) Alcohol use: This is a 59 year old, white female, with significant disorganization and psychosis that has not been responsive to Abilify including the long-acting injectable. She also has a history of Invega, but there is no interest on her part to restart it, and some support from the family that it was not the best from a side affect profile. She is here on a 90-day hold. Continue current medication. Continue q 15-minute checks for safety. Encourage individual, group, and milieu therapy. Involuntary Hold Information 96 Hour Hold: 96 Hour Involuntary Admission: Yes 96 Hour Hold Ending Date: 06/26/20 96 Hour Hold Ending Time: 19:30 Attestations NPU Medical Necessity Statement*: Inpatient hospitalization is medically necessary and the clinically appropriate intervention at this time. We will monitor medications and make changes as indicated. Likely length of stay seven to ten days. Coding Level of Care Code Acute Stone Layout Marker for Gustavo Burns
[2020-07-20 14:00] VITALS: BP 151/81; PULSE 97; RESP 20; TEMP 36.8; O2SAT 96
[2020-07-20 20:50] VITALS: BP 119/66; PULSE 74; RESP 16; TEMP 37; O2SAT 95
[2020-07-20] MEDS: OLANZapine 5 mg ODT 15 MG PO (21:07)
[2020-07-21 06:00] VITALS: BP 128/83; PULSE 68; RESP 17; TEMP 36.6; O2SAT 100
[2020-07-21] MEDS: lithium carbonate 300 mg Capsule PO ×2 (06:17→21:39)
[2020-07-21] MEDS: lithium carbonate 150 mg Capsule PO ×2 (06:17→21:39)
[2020-07-21] MEDS: divalproex DR 500 mg Tablet 1000 MG PO ×2 (08:08→16:51)
[2020-07-21] MEDS: ziprasidone hcl 40 mg Capsule PO ×2 (08:08→16:51)
[2020-07-21 14:00] VITALS: BP 128/67; PULSE 91; RESP 18; TEMP 37.1; O2SAT 99
--- NOTE | 2020-07-21 14:49 | P.PN_ITS ---
Subjective NPU Subjective: Interval history: Ana presents today reporting that things are going okay. She continued to be more able to sit still and have a conversation. Her pacing has diminished and she seems to be having a more thoughtful process to her situation as she endorsed that she would like to go to her place, but she is not stressed about it, and she knows that her rent has been paid for the month so her stuff if going to be fine, and if something were to happen and that is not the place she is going to live she will still be alright. She seemed to be quite insightful to her situation. She continues to take the medication without incident. We discussed the risks, benefits, and alternatives of checking her Depakote level in the next few days to see the impact of our increase several days ago. She is eating and sleeping okay. Mental Status Exam MSE Comments: This is a diminutive, white female, with a buzz haircut, with adequate dress and grooming, limited eye contact. Poor dentition. A little more cooperative with exam in no acute distress. Speech was decreased rate and volume with a strong [place] accent. Mood described as bored; affect subdued and a bit less guarded. Thought process linear at times, less disorganized. Thought content: patient did not demonstrate aggression toward self or others, there were no delusions reported but she still remains paranoid. She does not appear to be attending to internal stimuli. Attention and concentration are improving and memory is unreliable, but none were formally tested. She is alert and oriented to person and place. Insight and judgment are impaired, but improving. Impulse control still limited. Vitals/I&O/Wt Last Vital Signs Temp 98.1 F 07/21/20 21:58 Pulse 77 07/21/20 21:58 Resp 16 07/21/20 21:58 BP 124/77 07/21/20 21:58 Pulse Ox 98 07/21/20 21:58 Data NPU : 06/20/20 18:25 06/20/20 18:25 A&P Additional A&P Information (1) Nenita: (2) Schizoaffective disorder: (3) Psychosis: (4) Alcohol use: This is a 59 year old, white female, with significant disorganization and psychosis that has not been responsive to Abilify including the long-acting injectable. She also has a history of Invega, but there is no interest on her part to restart it, and some support from the family that it was not the best from a side affect profile. She is here on a 90-day hold. Continue current medication. Continue q 15-minute checks for safety. Encourage individual, group, and milieu therapy. Involuntary Hold Information 96 Hour Hold: 96 Hour Involuntary Admission: Yes 96 Hour Hold Ending Date: 06/26/20 96 Hour Hold Ending Time: 19:30 Attestations NPU Medical Necessity Statement*: Inpatient hospitalization is medically necessary and the clinically appropriate intervention at this time. We will monitor medications and make changes as indicated. Likely length of stay 6-9 days. Coding Level of Care Code Acute Spring Coiler Hand for Gustavo Burns
[2020-07-21] MEDS: OLANZapine 5 mg ODT 15 MG PO (21:40)
[2020-07-21 21:58] VITALS: BP 124/77; PULSE 77; RESP 16; TEMP 36.7; O2SAT 98
[2020-07-22 06:00] VITALS: BP 116/63; PULSE 91; RESP 17; TEMP 36.8; O2SAT 96
[2020-07-22] MEDS: lithium carbonate 300 mg Capsule PO ×2 (06:19→21:20)
[2020-07-22] MEDS: ziprasidone hcl 40 mg Capsule PO ×2 (06:20→16:56)
[2020-07-22] MEDS: lithium carbonate 150 mg Capsule PO ×2 (06:20→21:20)
[2020-07-22] MEDS: divalproex DR 500 mg Tablet 1000 MG PO ×2 (09:56→16:56)
[2020-07-22 13:41] VITALS: BP 132/67; PULSE 75; RESP 18; TEMP 36.8; O2SAT 99
--- NOTE | 2020-07-22 15:51 | PM.NPN ---
Subjective NPU Subjective: Interval history: Ana presents today reporting that she is feeling okay. She denies any problems today. She denies any changes recently. She did report that she was feeling a little dizzy this morning, and she did not know if that was the medication or anything else. She denied dizziness any of the other mornings. There have been no medication changes recently and so she was agreeable to just allow things to stand where they are, and we can check to see how that goes tomorrow. Mental Status Exam MSE Comments: This is a diminutive, white female, with a buzz haircut, with adequate dress and grooming, limited eye contact. Poor dentition. A little more cooperative with exam in no acute distress. Speech was decreased rate and volume with a strong [place] accent. Mood described as OK; affect subdued and less guarded. Thought process linear at times, less disorganized. Thought content: patient did not demonstrate aggression toward self or others, there were no delusions reported but she still remains paranoid. She does not appear to be attending to internal stimuli. Attention and concentration are improving and memory is unreliable, but none were formally tested. She is alert and oriented to person and place. Insight and judgment are impaired, but improving. Impulse control still limited, but improving. Vitals/I&O/Wt Last Vital Signs Temp 98.2 F 07/22/20 13:41 Pulse 75 07/22/20 13:41 Resp 18 07/22/20 13:41 BP 132/67 07/22/20 13:41 Pulse Ox 99 07/22/20 13:41 Data NPU : 06/20/20 18:25 06/20/20 18:25 A&P Additional A&P Information (1) Nenita: (2) Schizoaffective disorder: (3) Psychosis: (4) Alcohol use: This is a 59 year old, white female, with significant disorganization and psychosis that has not been responsive to Abilify including the long-acting injectable. She also has a history of Invega, but there is no interest on her part to restart it, and some support from the family that it was not the best from a side affect profile. She is here on a 90-day hold. Continue current medication. Continue q 15-minute checks for safety. Encourage individual, group, and milieu therapy. Will look towards discharge next week. Involuntary Hold Information 96 Hour Hold: 96 Hour Involuntary Admission: Yes 96 Hour Hold Ending Date: 06/26/20 96 Hour Hold Ending Time: 19:30 Attestations NPU Medical Necessity Statement*: Inpatient hospitalization is medically necessary and the clinically appropriate intervention at this time. We will monitor medications and make changes as indicated. Likely length of stay 5-8 days. Coding Level of Care Code Acute Barrel Lapper for Gustavo Burns
[2020-07-22] MEDS: OLANZapine 5 mg ODT 15 MG PO (21:20)
[2020-07-22 22:00] VITALS: BP 145/70; PULSE 83; RESP 18; TEMP 36.7; O2SAT 99
[2020-07-23 06:00] VITALS: RESP 16
[2020-07-23] MEDS: lithium carbonate 150 mg Capsule PO ×2 (06:49→20:25)
[2020-07-23] MEDS: ziprasidone hcl 40 mg Capsule PO ×2 (06:49→17:02)
[2020-07-23] MEDS: lithium carbonate 300 mg Capsule PO ×2 (06:49→20:26)
[2020-07-23] MEDS: divalproex DR 500 mg Tablet 1000 MG PO ×2 (08:59→17:02)
--- NOTE | 2020-07-23 10:02 | P.PN_ITS ---
Subjective NPU Subjective: Interval history: Ana presented today continuing to be more conversant calmly, able to sit down and have a conversation at the bedside versus the pacing she was doing before. She talked reasonably about her apartment and wanting to get clothes so that she does not have to just walk around in one pair of shorts. She did report that occasionally she gets dizzy and we agreed to give the medication a couple more days and then maybe see if shifting the bulk of the dosing to the evening maybe doing 20 in the morning and 60 at night of the Geodon might be of assistance. She reported that her only reason not to take the medication, if we manage that issue with the dizziness, would be if it were not covered by her insurance, which we reported we would definitely identify prior to discharge. Otherwise, she endorsed that she was eating fine and sleeping okay. In fact, she feels like maybe she is sleeping too much. Mental Status Exam MSE Comments: This is a diminutive, white female, with a buzz haircut, with adequate dress and grooming, limited eye contact. Poor dentition. A little more cooperative with exam in no acute distress. Speech was normal rate and slightly decreased volume with a strong [place] accent. Mood described as alright; affect subdued and less guarded. Thought process linear at times, less disorganized. Thought content: patient denied suicidal or homicidal ideation, there were no delusions reported but she still remains paranoid, but less so. She does not appear to be attending to internal stimuli. Attention and concentration are improving and memory is more reliable, but none were formally tested. She is alert and oriented to person and place. Insight and judgment are impaired, but improving. Impulse control still limited, but improving. Vitals/I&O/Wt Last Vital Signs Temp 98.0 F 07/22/20 22:00 Pulse 83 07/22/20 22:00 Resp 16 07/23/20 06:00 BP 145/70 07/22/20 22:00 Pulse Ox 99 07/22/20 22:00 Weight last 48 hrs Weight 54.658 kg Data NPU : 06/20/20 18:25 06/20/20 18:25 A&P Additional A&P Information (1) Nenita: (2) Schizoaffective disorder: (3) Psychosis: (4) Alcohol use: This is a 59 year old, white female, with significant disorganization and psychosis that has not been responsive to Abilify including the long-acting injectable. She also has a history of Invega, but there is no interest on her part to restart it, and some support from the family that it was not the best from a side affect profile. She is here on a 90-day hold. Continue current medication. Continue q 15-minute checks for safety. Encourage individual, group, and milieu therapy. Will look towards discharge next week. Involuntary Hold Information 96 Hour Hold: 96 Hour Involuntary Admission: Yes 96 Hour Hold Ending Date: 06/26/20 96 Hour Hold Ending Time: 19:30 Attestations NPU Medical Necessity Statement*: Inpatient hospitalization is medically necessary and the clinically appropriate intervention at this time. We will monitor medications and make changes as indicated. Likely length of stay 4-7 days. Coding Level of Care Code Acute Geotechnical Engineering Technician for Gustavo Burns
[2020-07-23 14:00] VITALS: BP 113/75; PULSE 84; RESP 18; TEMP 37.1; O2SAT 100
[2020-07-23 20:14] VITALS: BP 154/82; PULSE 67; RESP 15; TEMP 35.9; O2SAT 100
[2020-07-23] MEDS: OLANZapine 5 mg ODT 15 MG PO (20:25)
--- NOTE | 2020-07-23 20:26 | PC.NURSE ---
pt given scheduled HS lithium and zyprexa.
[2020-07-24 06:00] VITALS: BP 73/54; PULSE 90; RESP 16; TEMP 35.7; O2SAT 98
[2020-07-24] MEDS: lithium carbonate 300 mg Capsule PO ×2 (06:10→20:23)
[2020-07-24] MEDS: ziprasidone hcl 40 mg Capsule PO ×2 (06:11→17:16)
[2020-07-24] MEDS: lithium carbonate 150 mg Capsule PO ×2 (06:11→20:23)
--- NOTE | 2020-07-24 06:36 | PC.NURSE ---
pt given scheduled lithium and geodon without difficulty.
[2020-07-24] MEDS: divalproex DR 500 mg Tablet 1000 MG PO ×2 (08:53→17:16)
--- NOTE | 2020-07-24 13:14 | P.PN_ITS ---
Subjective NPU Subjective: Interval history: Ana presented today reporting that she is not feeling the dizziness as much anymore, as we discussed whether or not we needed to make a change in the distribution of her Geodon dose. She reports that she has not been having dizziness for the last couple of days, and she was happy about the idea that we are actively trying to identify the best discharge plan. She continues to be fairly bored but is not pacing or having OCD behaviors like she had been initially. She is taking medication without issue, and we are now working with family to identify the safest discharge option. She is eating fine and sleeping well. Mental Status Exam MSE Comments: This is a diminutive, white female, with a buzz haircut, with adequate dress and grooming, limited eye contact. Poor dentition. A little more cooperative with exam in no acute distress. Speech was normal rate and more normal volume with a strong [place] accent. Mood described as alright; affect subdued and less guarded. Thought process linear at times, more organized. Thought content: patient denied suicidal or homicidal ideation, there were no delusions reported and no real delusions noted. She does not appear to be attending to internal stimuli. Attention and concentration are improving and memory is more reliable, but none were formally tested. She is alert and oriented to person and place. Insight and judgment are impaired, but improving. Impulse control still limited, but improving. Vitals/I&O/Wt Last Vital Signs Temp 98.4 F 07/24/20 20:56 Pulse 71 07/24/20 20:56 Resp 20 H 07/24/20 20:56 BP 131/82 07/24/20 20:56 Pulse Ox 99 07/24/20 20:56 Weight last 48 hrs Weight 54.658 kg Data NPU : 06/20/20 18:25 06/20/20 18:25 A&P Additional A&P Information (1) Nenita: (2) Schizoaffective disorder: (3) Psychosis: (4) Alcohol use: This is a 59 year old, white female, with significant disorganization and psychosis that has not been responsive to Abilify including the long-acting injectable. She also has a history of Invega, but there is no interest on her part to restart it, and some support from the family that it was not the best from a side affect profile. She is here on a 90-day hold. Continue current medication. Continue q 15-minute checks for safety. Encourage individual, group, and milieu therapy. Will look towards discharge next week. Involuntary Hold Information 96 Hour Hold: 96 Hour Involuntary Admission: Yes 96 Hour Hold Ending Date: 06/26/20 96 Hour Hold Ending Time: 19:30 Attestations NPU Medical Necessity Statement*: Inpatient hospitalization is medically necessary and the clinically appropriate intervention at this time. We will monitor medications and make changes as indicated. Likely length of stay 3-6 days. Coding Level of Care Code Acute In Flight Refueling Manager for Gustavo Burns
[2020-07-24 14:00] VITALS: BP 120/68; PULSE 78; RESP 18; TEMP 36.8; O2SAT 99
[2020-07-24] MEDS: OLANZapine 5 mg ODT 15 MG PO (20:23)
--- NOTE | 2020-07-24 20:36 | PC.NURSE ---
pt given scheduled lithium and zyprexa without difficulty.
[2020-07-24 20:56] VITALS: BP 131/82; PULSE 71; RESP 20; TEMP 36.9; O2SAT 99
[2020-07-25 06:00] VITALS: BP 122/69; PULSE 68; RESP 20; TEMP 36.7; O2SAT 97
[2020-07-25] MEDS: ziprasidone hcl 40 mg Capsule PO ×2 (06:12→17:15)
[2020-07-25] MEDS: lithium carbonate 150 mg Capsule PO (06:12)
[2020-07-25] MEDS: lithium carbonate 300 mg Capsule PO ×2 (06:12→20:57)
[2020-07-25 07:29] LABS: Valproic Acid Level 84.1 ug/mL (50-100)
[2020-07-25 07:30] LABS: Lithium 1.1 mmol/L (0.6-1.2)
[2020-07-25] MEDS: divalproex DR 500 mg Tablet 1000 MG PO ×2 (07:49→17:15)
[2020-07-25 13:27] VITALS: BP 141/77; PULSE 67; RESP 18; TEMP 35.9; O2SAT 100
--- NOTE | 2020-07-25 14:43 | PC.SOCIAL ---
Important Medicare Message 07/25/20 1245 Reviewed Important Medicare Message with patient and signed. Original to patient and copy in chart.
--- NOTE | 2020-07-25 16:53 | PM.NPN ---
Subjective NPU Subjective: Interval history: Ana presents today reporting that she?s doing OK. We discussed the fact that we?re working with her daughter to get a discharge date for this week. The likely date will be Friday or Friday depending on logistics as her daughter will be picking her up. She endorses being unconvinced that is actually going to occur. She endorses the medication is going fine, she sleeping OK with no side effects. Mental Status Exam MSE Comments: This is a diminutive, white female, with a buzz haircut, with adequate dress and grooming, limited eye contact. Poor dentition. A little more cooperative with exam in no acute distress. Speech was normal rate and more normal volume with a strong [place] accent. Mood described as ok; affect subdued and less guarded. Thought process linear at times, more organized. Thought content: patient denied suicidal or homicidal ideation, there were no delusions reported and no real delusions noted. She does not appear to be attending to internal stimuli. Attention and concentration are improving and memory is more reliable, but none were formally tested. She is alert and oriented to person and place. Insight and judgment but improving. Impulse control still limited, but improving. Vitals/I&O/Wt Last Vital Signs Temp 97.8 F 07/25/20 21:10 Pulse 77 07/25/20 21:10 Resp 19 H 07/25/20 21:10 BP 133/64 07/25/20 21:10 Pulse Ox 94 07/25/20 21:10 Data NPU : 06/20/20 18:25 06/20/20 18:25 A&P Additional A&P Information (1) Nenita: (2) Schizoaffective disorder: (3) Psychosis: (4) Alcohol use: This is a 59 year old, white female, with significant disorganization and psychosis that has not been responsive to Abilify including the long-acting injectable. She also has a history of Invega, but there is no interest on her part to restart it, and some support from the family that it was not the best from a side affect profile. She is here on a 90-day hold. Continue current medication. Continue q 15-minute checks for safety. Encourage individual, group, and milieu therapy. Will look towards discharge this week. Involuntary Hold Information 96 Hour Hold: 96 Hour Involuntary Admission: Yes 96 Hour Hold Ending Date: 06/26/20 96 Hour Hold Ending Time: 19:30 Attestations NPU Medical Necessity Statement*: Inpatient hospitalization is medically necessary and the clinically appropriate intervention at this time. We will monitor medications and make changes as indicated. Likely length of stay 2-5 days. Coding Level of Care Code Acute Bookkeeping Clerks Supervisor for Gustavo Burns
[2020-07-25] MEDS: OLANZapine 5 mg ODT 15 MG PO (20:05)
[2020-07-25 21:10] VITALS: BP 133/64; PULSE 77; RESP 19; TEMP 36.6; O2SAT 94
--- NOTE | 2020-07-25 21:14 | PC.NURSE ---
Dr Knox notified and clarification of med dosage received. off going charge nurse relayed to hold this nights dose of lithium. No such order found, so was notified. Order received to given lithium 300mg dose but to hold the lithium 150mg dose for tonight. order noted and medication administered along with scheduled dose of Zyprexa.
[2020-07-26 06:00] VITALS: BP 115/64; PULSE 83; RESP 18; TEMP 36.7; O2SAT 97
[2020-07-26] MEDS: lithium carbonate 300 mg Capsule PO ×2 (06:41→22:11)
[2020-07-26] MEDS: ziprasidone hcl 40 mg Capsule PO ×2 (06:41→17:21)
[2020-07-26] MEDS: divalproex DR 500 mg Tablet 1000 MG PO ×2 (08:46→17:21)
--- NOTE | 2020-07-26 13:27 | PM.NPN ---
Subjective NPU Subjective: Interval history: Ana presents today reporting that she?s doing fine. We continued to discuss discharge and have a plan for Friday which will give her daughter an opportunity to get things ready and be totally available for the transition. Daughter will be picking her up. She is still unsure it actually will occur. She denied any active issues. Mental Status Exam MSE Comments: This is a diminutive, white female, with a buzz haircut, with adequate dress and grooming, limited eye contact. Poor dentition. A little more cooperative with exam in no acute distress. Speech was normal rate and more normal volume with a strong [place] accent. Mood described as ok; affect subdued and less guarded. Thought process linear at times, more organized. Thought content: patient denied suicidal or homicidal ideation, there were no delusions reported and no real delusions noted. She does not appear to be attending to internal stimuli. Attention and concentration are improving and memory is more reliable, but none were formally tested. She is alert and oriented to person and place. Insight and judgment but improving. Impulse control still limited, but improving. Vitals/I&O/Wt Last Vital Signs Temp 98.2 F 07/26/20 21:23 Pulse 75 07/26/20 21:23 Resp 20 H 07/26/20 21:23 BP 98/60 07/26/20 21:23 Pulse Ox 99 07/26/20 21:23 Data NPU : 06/20/20 18:25 06/20/20 18:25 A&P Additional A&P Information (1) Nenita: (2) Schizoaffective disorder: (3) Psychosis: (4) Alcohol use: This is a 59 year old, white female, who presented with significant disorganization and psychosis that has shown significant improvement on the depakote and geodon. She is here on a 90-day hold. Continue current medication. Stopped [place] 150mg qam yesterday will dc 150mg qhs tomorrow with ultimate plan to dc [place] altogether Continue q 15-minute checks for safety. Encourage individual, group, and milieu therapy. Will look towards discharge this week. Involuntary Hold Information 96 Hour Hold: 96 Hour Involuntary Admission: Yes 96 Hour Hold Ending Date: 06/26/20 96 Hour Hold Ending Time: 19:30 Attestations NPU Medical Necessity Statement*: Inpatient hospitalization is medically necessary and the clinically appropriate intervention at this time. We will monitor medications and make changes as indicated. Likely length of stay 1-4 days. Coding Level of Care Code Acute Blade Grinder for Gustavo Burns
[2020-07-26 14:00] VITALS: BP 145/76; PULSE 76; RESP 20; TEMP 36.6; O2SAT 95
[2020-07-26 21:23] VITALS: BP 98/60; PULSE 75; RESP 20; TEMP 36.8; O2SAT 99
[2020-07-26] MEDS: OLANZapine 5 mg ODT 15 MG PO (22:11)
[2020-07-26] MEDS: lithium carbonate 150 mg Capsule PO (22:12)
[2020-07-27 06:00] VITALS: BP 113/69; PULSE 93; RESP 17; TEMP 36.9; O2SAT 98
[2020-07-27] MEDS: ziprasidone hcl 40 mg Capsule PO ×2 (06:34→17:10)
[2020-07-27] MEDS: lithium carbonate 300 mg Capsule PO ×2 (06:34→20:20)
[2020-07-27] MEDS: divalproex DR 500 mg Tablet 1000 MG PO ×2 (08:07→17:10)
--- NOTE | 2020-07-27 08:21 | PC.NURSE ---
Patient was cooperative on assessment this morning. She said that she has been having stomach issues and feels that her medication is making her groggy. She said it is not appropriate for her height and weight. She feels over medicated. Today she seemed more clear in her thought process. However, she did say that she felt like she could kill someone today. I asked her who she wanted to kill, she smiled at me, and said he's not here. I asked who he was and she said nothing in return. At medication time, about 20 minutes later at the nurses station, she repeated that she could kill him and that her medication dose is not right. Her complaint is that it is too strong.
--- NOTE | 2020-07-27 11:48 | P.PN_ITS ---
Subjective NPU Subjective: Interval history: Ana presents today reporting that she?s doing well. She showed some impatience as she started lobbying for discharge today giving this comic writer different options of how that could occur. We reviewed the plans for discharge Friday and the fact that we have everything arranged and that it will in fact occur. She?s doing better in groups. And has been asking questions about how she is going to manage different aspects of her self-care. She denied any new or active issues. Mental Status Exam MSE Comments: This is a diminutive, white female, with a buzz haircut, with adequate dress and grooming, limited eye contact. Poor dentition. A little more cooperative with exam in no acute distress. Speech was normal rate and more normal volume with a strong [place] accent. Mood described as good; affect less subdued. Thought process linear and more organized. Thought content: patient denied suicidal or homicidal ideation, there were no delusions reported and no real delusions noted. She does not appear to be attending to internal stimuli. Attention and concentration are improving and memory is more reliable, but none were formally tested. She is alert and oriented to person and place. Insight and judgment but improving. Impulse control improving. Vitals/I&O/Wt Last Vital Signs Temp 98.4 F 07/27/20 06:00 Pulse 93 07/27/20 06:00 Resp 17 07/27/20 06:00 BP 113/69 07/27/20 06:00 Pulse Ox 98 07/27/20 06:00 Data NPU : 06/20/20 18:25 06/20/20 18:25 A&P Additional A&P Information (1) Nenita: (2) Schizoaffective disorder: (3) Psychosis: (4) Alcohol use: This is a 59 year old, white female, who presented with significant disorganization and psychosis that has shown significant improvement on the depakote and geodon. She is here on a 90-day hold. Continue current medication. dc 150mg qhs tomorrow with ultimate plan to dc [place] altogether Continue q 15-minute checks for safety. Encourage individual, group, and milieu therapy. Will look towards discharge Friday. Involuntary Hold Information 96 Hour Hold: 96 Hour Involuntary Admission: Yes 96 Hour Hold Ending Date: 06/26/20 96 Hour Hold Ending Time: 19:30 Attestations NPU Medical Necessity Statement*: Inpatient hospitalization is medically necessary and the clinically appropriate intervention at this time. We will monitor medications and make changes as indicated. Likely length of stay 1-3 days. Coding Level of Care Code Acute Vertical Contour Band Saw Operator for Gustavo Bursn
[2020-07-27 14:00] VITALS: BP 140/61; PULSE 79; RESP 22; TEMP 37.4; O2SAT 100
[2020-07-27 20:14] VITALS: BP 126/82; PULSE 77; RESP 20; TEMP 36.8; O2SAT 98
[2020-07-27] MEDS: OLANZapine 5 mg ODT 15 MG PO (20:19)
[2020-07-28 06:00] VITALS: PULSE 15
[2020-07-28] MEDS: ziprasidone hcl 40 mg Capsule PO ×2 (06:23→17:09)
[2020-07-28] MEDS: lithium carbonate 300 mg Capsule PO ×2 (06:23→20:45)
[2020-07-28 06:33] VITALS: RESP 15
[2020-07-28] MEDS: divalproex DR 500 mg Tablet 1000 MG PO ×2 (08:26→17:08)
--- NOTE | 2020-07-28 10:39 | PC.SOCIAL ---
Important Medicare Message Reviewed updated Important Medicare Message with patient. She previously signed. Updated copy in chart and to patient.
[2020-07-28 14:00] VITALS: BP 129/69; PULSE 82; RESP 20; TEMP 36.9; O2SAT 99
--- NOTE | 2020-07-28 15:48 | PM.NPN ---
Subjective NPU Subjective: Interval history: Ana presented today reporting that she is looking forward to discharging tomorrow. She was very interested in exactly when this would occur. We agreed that it would be in the morning whenever her daughter arrives. She appeared reluctant to embrace that it was really going to occur until it occurs. We discussed how much improvement we?ve seen and the critical importance of her continuing her medication as prescribed. She endorsed the plan to follow through with outpatient services and take her medication daily. She endorses that she?s eating fine and sleeping well. Mental Status Exam MSE Comments: This is a diminutive, white female, with a buzz haircut, with adequate dress and grooming, limited eye contact. Poor dentition. A little more cooperative with exam in no acute distress. Speech was normal rate and more normal volume with a strong [place] accent. Mood described as good; affect less subdued. Thought process linear and more organized. Thought content: patient denied suicidal or homicidal ideation, there were no delusions reported and no real delusions noted. She does not appear to be attending to internal stimuli. Attention and concentration are improving and memory is more reliable, but none were formally tested. She is alert and oriented to person and place. Insight and judgment but improving. Impulse control improving. Vitals/I&O/Wt Last Vital Signs Temp 98.5 F 07/28/20 14:00 Pulse 82 07/28/20 14:00 Resp 20 H 07/28/20 14:00 BP 129/69 07/28/20 14:00 Pulse Ox 99 07/28/20 14:00 Data NPU : 06/20/20 18:25 06/20/20 18:25 A&P Additional A&P Information (1) Nenita: (2) Schizoaffective disorder: (3) Psychosis: (4) Alcohol use: This is a 59 year old, white female, who presented with significant disorganization and psychosis that has shown significant improvement on the depakote and geodon. She is here on a 90-day hold. Continue current medication. Continue q 15-minute checks for safety. Encourage individual, group, and milieu therapy. Will look towards discharge Tomorrow. Involuntary Hold Information 96 Hour Hold: 96 Hour Involuntary Admission: Yes 96 Hour Hold Ending Date: 06/26/20 96 Hour Hold Ending Time: 19:30 Attestations NPU Medical Necessity Statement*: Inpatient hospitalization is medically necessary and the clinically appropriate intervention at this time. We will monitor medications and make changes as indicated. Plan for discharge tomorrow. Coding Level of Care Code Acute Appeals Board Referee for Gustavo Burns
[2020-07-28 20:26] VITALS: BP 131/69; PULSE 69; RESP 22; TEMP 36.7; O2SAT 98
[2020-07-28] MEDS: OLANZapine 5 mg ODT 15 MG PO (20:44)
[2020-07-29 06:00] VITALS: BP 121/68; PULSE 73; RESP 16; TEMP 35.8; O2SAT 99
[2020-07-29] MEDS: ziprasidone hcl 40 mg Capsule PO (06:25)
[2020-07-29] MEDS: lithium carbonate 300 mg Capsule PO (06:25)
--- NOTE | 2020-07-29 07:25 | PM.NDC ---
Diagnoses at Discharge Discharge Diagnosis (1) Nenita: Status: Resolved (2) Schizoaffective disorder: Status: Acute (3) Psychosis: Status: Acute (4) Alcohol use: Status: Chronic Reason for Visit Reason for Visit: PSYCH Brief History: History of Present Illness Ana Delgado is a 59 year old female who presented to the emergency room after an episode where she has found wandering by the police with psychosis and aggression. She was placed on a 96 hour hold and admitted to the neuropsychiatric unit for definitive treatment of those issues. This morning she presented denying that she was the patient of record because she reports that the person that I was looking for has a scar on his place on her ankle and she could not see the scar there so she reported that means she is not the person of record. Following from that she identified the she would not take medications that were meant for the patient of record. She denies that there is anything well with her, reported to police or rubs and just forcing her to come here for no reason. She was unable to give any meaningful history but I did review some of the records that were in the chart from the past and excerpt of her last inpatient hospitalization is included below. Per her last [facility] eval: DATE OF ADMISSION: 06/15/2012 DATE OF DICTATION: 06/16/2012 IDENTIFYING DATA: The patient 51-year-old female who has had several admissions to the Neuropsychiatric Unit. HISTORY OF PRESENT ILLNESS: She presented to the Emergency Room with agitation. She was quite aggressive and experiencing hallucinations. Her behavior had become that of being very aggressive. She cannot express her own story quite well. She shows looseness of association. She states that she was supposed to have had her Invega Sustenna shot on 06/20/2012. She states that she cannot get this. She states that she is homeless She has been diagnosed with paranoid schizophrenia in the past or at the very least, schizoaffective disorder, bipolar type. She appears to show some pressure of thought and speech at this time and she has looseness of association and seems to be somewhat paranoid, feeling that people are persecuting her. She has been minimally cooperative with her care. She states that she has been eating and sleeping fairly well. REVIEW OF SYSTEMS: She, on Review of Systems, denies any symptoms. PAST MEDICAL HISTORY: She has a past history of breast biopsy. Her drug screen has been negative. She is denying using any drugs. Her blood alcohol level was 0. She states that she has not been drinking. She has a past history of decompensating fairly quickly and appears to be primarily a nenita that she suffers but she becomes quite psychotic. She has had past admissions to [facility]. She is supposed to be seen at [facility] in [place] and she had been in the Neuropsychiatric Unit many times. She usually presents being quite abusive to her caretakers and essentially refuses to do anything. PHYSICAL EXAMINATION: NECK: Showed no masses or tenderness. Trachea was in the midline. EARS, NOSE, AND THROAT: Unremarkable. HEART: Showed a regular rate and rhythm with no murmurs or gallops. LUNGS: Clear to auscultation and percussion. ABDOMEN: Showed no deformity of her extremities. Range of motion was good. Her abdomen was flat and soft with no tenderness. NEUROLOGIC: Examination showed deep tendon reflexes were present and equal bilaterally. MENTAL STATUS EXAMINATION: Showed pressure of thought and speech. She showed a looseness of association. She appeared to be quite paranoid and she felt like people were judging her. She did know the day and date but it took a while for her to state that. She is more focused on imaginary illnesses and the way she felt people were treating her than she was with answering questions. Insight and judgment were quite poor and she has shown an adequate fund of knowledge. IMPRESSION: AXIS I: Schizoaffective disorder, bipolar type with nenita. PLAN: The plan will be to place her on Invega 6 milligrams a day. She will get her Sustenna shot on 06/20/2012 when it is due. Hospital Course Hospital Course The patient presented to the emergency room on 06/20/2020 with the following report: Patient is a 59-year-old female who was brought in by EMS for psychosis. Patient was arrested by police department today due to making a scene in public. The police stated patient was cursing at them and saying a lot of things that do not make any sense. Police Department said that they have had encounters with this patient in the past for same issue and she has a history of noncompliance with psych medications. Patient was then brought in by the EMS to the ED for evaluation. While here in the ED patient started escalating and cursing at staff and spitting at them. She was saying things that did not make any sense. Patient's response to my questions were incoherent and made no sense. I completed and signed the 96-hour hold paperwork and affidavit. She was admitted to the neuropsychiatric unit for definitive treatment of those issues. She refused to restart Invega which had been a successful medication in the past so we attempted another long-acting injectable Abilify. She showed some improvement but not enough to warrant discharge and she was placed on a 21-day-hold. She was put on lithium and Depakote in the Depakote was titrated and ultimately lithium was reduced prior to discharge with an ultimate plan for likely discontinuation. Geodon was initiated with positive effect but during this process she was placed on a 90-day-hold. For the most part she was compliant even in her resistance to being forced to stay she did have a couple incidents that led to when necessary medication including 1 wherein she was aggressive. She demonstrated moderate improvement on the medication during this stay.During the hospitalization, the patient had routine laboratory studies which were within normal limits, except for a few outliers. Additionally, the patient had a general medical evaluation which was within normal limits and revealed no new acute processes, outside of those mentioned above. Discharge Summary At the time of discharge the patient denied all lethality, psychosis was resolving, and mood and anxiety were well managed. The patient endorsed a plan to avoid all drugs of abuse and follow-up with treatment as recommended. The patient was evaluated and deemed to be absent credible lethality, and had achieved the maximum benefit from an inpatient hospitalization, and so she was discharged. Involuntary Hold Information 96 Hour Hold: 96 Hour Involuntary Admission: Yes 96 Hour Hold Ending Date: 06/26/20 96 Hour Hold Ending Time: 19:30 Mental Status Exam MSE Comments: This is a diminutive, white female, with a buzz haircut, with adequate dress and grooming, limited eye contact. Poor dentition. A little more cooperative with exam in no acute distress. Speech was normal rate and more normal volume with a strong [place] accent. Mood described as good; affect less subdued. Thought process linear and more organized. Thought content: patient denied suicidal or homicidal ideation, there were no delusions reported and no real delusions noted. She does not appear to be attending to internal stimuli. Attention and concentration are improving and memory is more reliable, but none were formally tested. She is alert and oriented to person and place. Insight and judgment but improving. Impulse control improving. Discharge Data Vitals: Last Vital Signs Temp 96.5 F L 07/29/20 06:00 Pulse 73 07/29/20 06:00 Resp 16 07/29/20 06:00 BP 121/68 07/29/20 06:00 Pulse Ox 99 07/29/20 06:00 Discharge Plan Discharge Patient Disposition: Home Condition: Stable Prescriptions: New divalproex 500 mg Tablet,Delayed Release (Dr/Ec) 1,000 mg PO BID 30 Days Qty: 120 RF: 1 lithium carbonate 300 mg Capsule 300 mg PO BEDTIME 30 Days Qty: 30 RF: 1 lithium carbonate 300 mg Capsule 300 mg PO ACBREAKFAST 30 Days Qty: 30 RF: 1 ziprasidone HCl 40 mg Capsule 40 mg PO 0700,1700 30 Days Qty: 60 RF: 1 olanzapine 5 mg Tablet,Disintegrating 15 mg PO BEDTIME 30 Days Qty: 30 RF: 1 Discharge Orders: Discharge Order (Routine); Ordered 07/29/20 Ordered By: Andrey Knox Referrals: [facility] [Outside] - 1-3 days (Follow up for a walk in assessment after discharge. This can be done Friday-Friday from 7:30am-2:00pm. Once done you will be linked to appropriate services.) Discharge Diet: Regular Discharge Activity: Resume usual activity Discharge Date/Time: 07/29/20 15:10 Discharge Attestations NPU Time Spent in Discharge Care*: less than 30 min Specific Discharge Activities: Specific discharge activities: educating patient, discussing with hospice case manager/social workers/dc planners, documenting/other paperwork and evaluating patient/reviewing data Time Spent in Smoking Cessation: Time spent discussing smoking cessation with patient: 3 to 10 minutes Coding Level of Care Code Acute Building Maintenance Custodian for g Fwd Diagnoses Nenita F30.9 Schizoaffective disorder F25.9 Psychosis F29 Alcohol use Z72.89
[2020-07-29 07:40] VITALS: BP 121/68; PULSE 73; RESP 16; TEMP 35.8; O2SAT 99
[2020-07-29] MEDS: divalproex DR 500 mg Tablet 1000 MG PO (08:59)
[2020-07-29 13:38] VITALS: BP 151/84; PULSE 82; RESP 18; TEMP 36.3; O2SAT 98
[2020-07-29 17:36] VITALS: BP 151/84; PULSE 82; RESP 18; TEMP 36.3; O2SAT 98
== END 2020-07-29 15:10 | disposition home or self-care (01) | DRG 885 ==
LOC: ER 18:43 → NP 19:41
PROVIDERS: Physician Assistant; Psychiatry & Neurology Psychiatry; Admitting Provider Psychiatry & Neurology Psychiatry; Visit Provider Psychiatry & Neurology Psychiatry
DX: F25.0 Schizoaffective disorder, bipolar type (principal); F30.9 Manic episode, unspecified; Z72.89 Other problems related to lifestyle; Z91.19 Patient's noncompliance with other medical treatment and regimen
CPT/HCPCS: 12345; 36415; 80053; 80164; 80178; 80306; 80307; 81003; 85025; 96372; 99284; J1200; J1630; J2060

== ENCOUNTER 2020-12-30 11:24 | Inpatient (IN) | payer MEDICARE, SELFPAY ==
[2020-12-30 11:28] VITALS: BP 146/88; PULSE 108; RESP 20; TEMP 36.3; O2SAT 98; BMI 22.8
[2020-12-30] MEDS: LORazepam 2 mg/mL INJ 1 mL IM (11:36)
[2020-12-30] MEDS: diphenhydrAMINE 50 mg/mL SDV 1mL IM (11:37)
--- NOTE | 2020-12-30 11:42 | W.ED.PSYCH ---
HPI - Psych General: Chief Complaint: Psychiatric Symptoms Stated Complaint: COMBATIVE Time Seen by Provider: 12/30/20 11:31 History of Present Illness: HPI Narrative: The patient is a 60-year-old female with past medical history schizoaffective disorder. She comes to the ER after she intruded on some other patients house and was throwing balls and plates agitated and cursing. Police arrived to the scene and wrote a 96-hour hold paperwork. Brought to the ER by EMS where she is still agitated and has threatening behavior. She was placed in restraints to protect herself and staff. EMS gave 5 mg Haldol intramuscular prior to arrival. I added Benadryl and Ativan to that. She is making rambling statements about other people and she appears very paranoid. Flight of ideas and pressured speech. Review of Systems General: Reports: ROS unobtainable due to medical condition and Other (acute psychosis. Not cooperating with questioning.) PFS ED PFSH: Social History Smoking and tobacco status: current every day smoker cigarettes Packs smoked per day: 1 Alcohol intake: current Alcohol intake frequency: holidays/special occasions only Physical Exam Const: COMMON NORMALS: alert NUTRITIONAL APPEARANCE: thin ORIENTATION/CONSCIOUSNESS: Yes oriented to person, Yes oriented to place and Yes oriented to time OTHER: acutely psychotic HENMT: COMMON NORMALS: normocephalic, external ears normal and Normal external nose present HEAD & SCALP: normal to inspection and normocephalic NOSE: Normal external nose present EXTERNAL EAR: Yes external ears normal MOUTH: Normal oral and palatal mucosa present THROAT: posterior oropharynx normal Eye: COMMON NORMALS: Equal, round and reactive pupils present and EOMs intact bilaterally GENERAL EYE: appearance normal, both eyes and all related structures PUPIL: Yes Equal, round and reactive pupils present Neck/C-Spine: COMMON NORMALS: full ROM, no lymphadenopathy, no meningeal signs and no JVD GENERAL: Yes normal visual inspection Lymph: LYMPHATIC: no lymphadenopathy noted Chest: COMMONS NORMALS: normal inspection of the chest and normal palpation of entire chest wall Resp: COMMON NORMALS: normal respiratory effort, No retractions, No use of accessory muscles, clear to auscultation bilaterally and percussion normal EFFORT & INSPECTION: Yes able to speak in complete sentences AUSCULTATION: clear to auscultation bilaterally PERCUSSION: percussion normal Cardio: COMMON NORMALS: no JVD, regular rate, regular rhythm, S1 normal heart sound present, S2 normal heart sound present and Peripheral pulses 2+ throughout RATE: regular rate RHYTHM: regular rhythm HEART SOUNDS: S1 normal heart sound present and S2 normal heart sound present PERIPHERAL PULSES: Peripheral pulses 2+ throughout GI: COMMON NORMALS: Normal to inspection, nondistended, normoactive bowel sounds present, Soft to palpation, non-tender and no masses INSPECTION: Yes normal to inspection PALPATION: Yes Soft to palpation : COMMON NORMALS: Yes no CVA tenderness BLADDER/KIDNEY EXAM: Yes no CVA tenderness Back/Pelvis: COMMON NORMALS: no CVA tenderness, thoracic and lumbar spine normal to inspection, no thoracic nor lumbar tenderness and thoraco-lumbar ROM normal Extremity: COMMON NORMALS: normal to inspection, full ROM, capillary refill normal, no joint enlargement and no pedal edema GENERAL: Yes normal exam except as noted Neuro: COMMON NORMALS: CN's II-XII intact bilaterally, moves all extremities, no focal motor deficits, no sensory deficits noted and gait normal SENSORIUM/ORIENTATION: Yes alert, Yes oriented to person, Yes oriented to place and Yes oriented to time MENINGEAL SIGNS: Yes no meningeal signs Psych: APPEARANCE: Yes unkempt, Yes disheveled and Yes bizarre ATTITUDE: Yes hostile ACTIVITY/MOTOR BEHAVIOR: Yes psychomotor agitation, Yes hyperactivity and Yes disorganized behavior SPEECH: Yes excessive, Yes rapid and Yes Pressured speech present MOOD & AFFECT: Yes irritable and Yes hostile affect THOUGHT PROCESS: incoherent, disorganized, Flight of ideas present and Tangential thought process present INSIGHT: Poor insight present (Psych) JUDGEMENT: Poor judgement present (Psych) Skin: COMMON NORMALS: no rashes or lesions noted GENERAL SKIN EXAM: no rashes or lesions noted MDM - Psych MDM Narrative: Medical decision making narrative: She continues to behave psychotically and could benefit from inpatient admission. Discussed with Dr. Knox who accepts Lab Data: Labs: Lab Results 12/30/20 12/30/20 12/30/20 Range/Units 12:12 12:12 12:46 WBC 7.0 (4.0-10.0) 10^3/ uL RBC 4.53 (4.1-5.3) 10^6/u L Hgb 14.5 (11.5-15.3) g/dL Hct 47.2 H (37.0-47.0) % MCV 104.2 H (81-99) fL MCH 32.0 (28.0-34.0) pg MCHC 30.7 (30.0-36.0) g/dL RDW 14.0 (12.1-15.1) % Plt Count 234 (130-400) 10^3/c mm MPV 9.8 (7.4-10.4) fL Neut % (Auto) 63.0 % Lymph % (Auto) 30.2 % [place] % (Auto) 5.6 % Eos % (Auto) 0.3 % Baso % (Auto) 0.6 % Neut # (Auto) 4.39 (1.8-7.7) 10^3/u L Lymph # (Auto) 2.1 (0.8-4.8) 10^3/u L [place] # (Auto) 0.4 (0.2-0.9) 10^3/u L Eos # (Auto) 0.0 (0.0-0.8) 10^3/u L Baso # (Auto) 0.0 (0.0-0.1) 10^3/u L Nucleated RBC % (a uto) 0 % Nucleated RBCs # 0.0 /100WBC Sodium 140 (136-145) mmol/L Potassium 3.6 (3.5-5.1) mmol/L Chloride 107 (98-107) mmol/L Carbon Dioxide 20 L (22-29) mmol/L Anion Gap 16.6 (5-19) BUN 10 (6-20) mg/dL Creatinine 0.6 (0.5-0.9) mg/dL GFR Calculation 102.3 (90-130) mL/min Glucose 102 (65-115) mg/dL Calculated Osmolal ity 289 (285-295) mOsm/k g Calcium 8.9 (8.5-10.5) mg/dL Total Bilirubin 0.3 (0.15-1.2) mg/dL AST 20 (0-32) U/L ALT 14 (0-33) U/L Alkaline Phosphata se 79 (35-105) IU/L Total Protein 6.3 L (6.6-8.7) g/dL Albumin 3.8 (3.5-5.2) g/dL Globulin 2.5 (1.3-4.6) g/dL TSH 0.96 (0.27-4.20) uIU/ mL Urine Color Yellow (Yellow) Urine Appearance Clear (CLEAR) Urine pH 7 (5-7) Ur Specific Gravit y 1.005 (1.005-1.030) Urine Protein Neg (Negative) Urine Glucose (UA) Norm (Normal) Urine Ketones Negative (Negative) Urine Blood Neg (Negative) Urine Nitrate Negative (Negative) Urine Bilirubin Neg (Negative) Urine Urobilinogen Norm (Negative) mg/dL Ur Leukocyte Ay[place] ase Negative (Negative) Salicylates < 0.3 L (3-10) mg/dL Urine Opiates Scre en (Negative) ng/mL Acetaminophen < 5.0 L (10-30) ug/mL Ur Barbiturates Sc reen (Negative) ng/mL Ur Phencyclidine S crn (Negative) ng/mL Ur Amphetamines Sc reen (Negative) ng/mL U Benzodiazepines Scrn (Negative) ng/mL Urine Cocaine Scre en (Negative) ng/mL U Marijuana (THC) Screen (Negative) ng/mL Ethyl Alcohol < 10 (0-10) mg/dL 12/30/20 Range/Units 12:46 WBC (4.0-10.0) 10^3/ uL RBC (4.1-5.3) 10^6/u L Hgb (11.5-15.3) g/dL Hct (37.0-47.0) % MCV (81-99) fL MCH (28.0-34.0) pg MCHC (30.0-36.0) g/dL RDW (12.1-15.1) % Plt Count (130-400) 10^3/c mm MPV (7.4-10.4) fL Neut % (Auto) % Lymph % (Auto) % [place] % (Auto) % Eos % (Auto) % Baso % (Auto) % Neut # (Auto) (1.8-7.7) 10^3/u L Lymph # (Auto) (0.8-4.8) 10^3/u L [place] # (Auto) (0.2-0.9) 10^3/u L Eos # (Auto) (0.0-0.8) 10^3/u L Baso # (Auto) (0.0-0.1) 10^3/u L Nucleated RBC % (a uto) % Nucleated RBCs # /100WBC Sodium (136-145) mmol/L Potassium (3.5-5.1) mmol/L Chloride (98-107) mmol/L Carbon Dioxide (22-29) mmol/L Anion Gap (5-19) BUN (6-20) mg/dL Creatinine (0.5-0.9) mg/dL GFR Calculation (90-130) mL/min Glucose (65-115) mg/dL Calculated Osmolal ity (285-295) mOsm/k g Calcium (8.5-10.5) mg/dL Total Bilirubin (0.15-1.2) mg/dL AST (0-32) U/L ALT (0-33) U/L Alkaline Phosphata se (35-105) IU/L Total Protein (6.6-8.7) g/dL Albumin (3.5-5.2) g/dL Globulin (1.3-4.6) g/dL TSH (0.27-4.20) uIU/ mL Urine Color (Yellow) Urine Appearance (CLEAR) Urine pH (5-7) Ur Specific Gravit y (1.005-1.030) Urine Protein (Negative) Urine Glucose (UA) (Normal) Urine Ketones (Negative) Urine Blood (Negative) Urine Nitrate (Negative) Urine Bilirubin (Negative) Urine Urobilinogen (Negative) mg/dL Ur Leukocyte [place] ase (Negative) Salicylates (3-10) mg/dL Urine Opiates Scre en Negative (Negative) ng/mL Acetaminophen (10-30) ug/mL Ur Barbiturates Sc reen Negative (Negative) ng/mL Ur Phencyclidine S crn Negative (Negative) ng/mL Ur Amphetamines Sc reen Negative (Negative) ng/mL U Benzodiazepines Scrn Negative (Negative) ng/mL Urine Cocaine Scre en Negative (Negative) ng/mL U Marijuana (THC) Screen Negative (Negative) ng/mL Ethyl Alcohol (0-10) mg/dL Discharge Plan Discharge Admit Provider: Andrey Knox Coding Level of Care Code ED Voucher Examiner for Chg Fwd Exam Comprehensive
[2020-12-30 11:55] VITALS: PULSE 102; RESP 18
[2020-12-30 12:27] LABS: Basophils % 0.6 %; Eosinophils % 0.3 %; Hematocrit 47.2 % (37.0-47.0); Hemoglobin 14.5 g/dL (11.5-15.3); Lymphocytes # 2.1 10^3/uL (0.8-4.8); Lymphocytes % 30.2 %; Mean Corpuscular HGB Conc 30.7 g/dL (30.0-36.0); Mean Corpuscular Volume 104.2 fL (81-99); Mean Platelet Volume 9.8 fL (7.4-10.4); Monocytes # 0.4 10^3/uL (0.2-0.9); Monocytes % 5.6 %; Neutrophils # 4.39 10^3/uL (1.8-7.7); Nucleated Red Blood Cells % 0 %; Platelet Count 234 10^3/cmm (130-400); Red Blood Count 4.53 10^6/uL (4.1-5.3)
[2020-12-30 12:43] LABS: Slide Review Slide Review Perform
[2020-12-30 12:52] LABS: Alanine Aminotransferase 14 U/L (0-33); Albumin Level 3.8 g/dL (3.5-5.2); Alkaline Phosphatase 79 IU/L (35-105); Aspartate Amino Transferase 20 U/L (0-32); Blood Urea Nitrogen 10 mg/dL (6-20); Calcium 8.9 mg/dL (8.5-10.5); Carbon Dioxide 20 mmol/L (22-29); Chloride 107 mmol/L (98-107); Globulin 2.5 g/dL (1.3-4.6); Glomerular Filtration Rate 102.3 mL/min (90-130); Glucose 102 mg/dL (65-115); Osmolality Calculated 289 mOsm/kg (285-295); Sodium 140 mmol/L (136-145); Thyroid Stimulating Hormone 0.96 uIU/mL (0.27-4.20); Total Bilirubin 0.3 mg/dL (0.15-1.2); Total Protein 6.3 g/dL (6.6-8.7)
[2020-12-30 12:57] LABS: Add Urine Microscopic? NO
[2020-12-30 13:00] LABS: Bilirubin Urine Neg (Negative); Blood Urine Neg (Negative); Glucose Urine UA Norm (Normal); Ketones Urine Negative (Negative); Leukocyte Esterase Urine Negative (Negative); Nitrate Urine Negative (Negative); Protein Urine Neg (Negative); Specific Gravity, Urine 1.005 (1.005-1.030); Urine Appearance Clear (CLEAR); Urine Color Yellow (Yellow); Urobilinogen Urine Norm (Negative); pH Urine 7 (5-7)
[2020-12-30 13:03] LABS: Acetaminophen < 5.0 ug/mL (10-30); Alcohol Level < 10 mg/dL (0-10); Anion Gap 16.6 (5-19); Potassium 3.6 mmol/L (3.5-5.1); Salicylate < 0.3 mg/dL (3-10)
[2020-12-30 13:08] LABS: Amphetamines Screen Urine Negative (Negative); Barbiturates Screen Urine Negative (Negative); Benzodiazepines Screen Urine Negative (Negative); Cocaine Screen Urine Negative (Negative); Opiate Screen Urine Negative (Negative); PCP Screen Urine Negative (Negative); THC Screen Urine Negative (Negative)
[2020-12-30 13:55] VITALS: RESP 18
[2020-12-30 17:41] LABS: Lithium 0.1 mmol/L (0.6-1.2); Valproic Acid Level 2.8 ug/mL (50-100)
[2020-12-30 17:55] VITALS: BP 119/83; PULSE 83; RESP 18; TEMP 36.4
[2020-12-30 20:10] VITALS: RESP 16
[2020-12-30 22:00] VITALS: BP 119/83; PULSE 83; RESP 16; TEMP 36.4
[2020-12-31 04:06] VITALS: BP 148/80; PULSE 95; RESP 18; TEMP 36.6; O2SAT 93
--- NOTE | 2020-12-31 06:00 | PC.NURSE ---
Pt has slept most of the night, waking up and wandering in hallway and rambling. Pt has been pleassent without any out bursts this night.
--- NOTE | 2020-12-31 10:43 | P.HP_ITS ---
Providers/Chief Complaint Admitting Physician: Andrey Knox MD Chief Complaint: COMBATIVE HPI NPU History of Present Illness Ana Delgado is a 60 year old female who presented to the emergency department with the following report: Chief Complaint: Psychiatric Symptoms Stated Complaint: COMBATIVE Time Seen by Provider: 12/30/20 11:31 History of Present Illness: HPI Narrative: The patient is a 60-year-old female with past medical history schizoaffective disorder. She comes to the ER after she intruded on some other patients house and was throwing balls and plates agitated and cursing. Police arrived to the scene and wrote a 96-hour hold paperwork. Brought to the ER by EMS where she is still agitated and has threatening behavior. She was placed in restraints to protect herself and staff. EMS gave 5 mg Haldol intramuscular prior to arrival. I added Benadryl and Ativan to that. She is making rambling statements about other people and she appears very paranoid. Flight of ideas and pressured speech. She was admitted to the neuropsychiatric unit for definitive treatment of those issues. She presents today fairly irritated with the interview cursing profoundly and arguing that she should not be here. When asked why she is here she went on a disconnected diatribe about drinking coffee and minding her business, albeit the coffee had gasoline and it, but that is beside the point. She ranted about how her neighbors and everyone else was bothering her and causing the problem. Prior to the end of our interview, she insinuated that since she had left she had seen this song writer in the past 5 months including in [place] and in [place] and that I should not live. She reports that she has evidence in the pictures to prove it but then added that the person and the picture had different hair than mine. She initially denied not taking her medication but then said she never took the medication as we were discussing and then ended saying she did not need any $%^&@ medications. We discussed the fact that it was critical for her to resume the medication to be able to get out of here quickly and get back on track but she was very resistant to that idea and reportedly has been refusing the medication. I brought up the fact that this would likely lead to a 21-day hold given that we have the experience of her last hospitalization that went from 06/20/2020 to 07/29/2020 and involved a 90-day hold. This all to say if she is going to refuse the medication we will likely need to proceed to a 21-day hold without waiting for her 96-hour hold to be up. Given her limited functioning as a historian and excerpt from her discharge summary from the above referenced hospitalization is included below. Per her 07/29/2020 on a inpatient discharge summary from the hospitalization that began 06/20/2020: PSYCH Brief History: History of Present Illness Ana Delgado is a 59 year old female who presented to the emergency room after an episode where she has found wandering by the police with psychosis and aggression. She was placed on a 96 hour hold and admitted to the neuro psychiatric unit for definitive treatment of those issues. This morning she presented denying that she was the patient of record because she reports that the person that I was looking for has a scar on his place on her ankle and she could not see the scar there so she reported that means she is not the person of record. Following from that she identified the she would not take medications that were meant for the patient of record. She denies that there is anything well with her, reported to police or rubs and just forcing her to come here for no reason. She was unable to give any meaningful history but I did review some of the records that were in the chart from the past and excerpt of her last inpatient hospitalization is included below. Per her last [facility] eval: DATE OF ADMISSION: 06/15/2012 DATE OF DICTATION: 06/16/2012 IDENTIFYING DATA: The patient 51-year-old female who has had several admissions to the Neuropsychiatric Unit. HISTORY OF PRESENT ILLNESS: She presented to the Emergency Room with agitation. She was quite aggressive and experiencing hallucinations. Her behavior had become that of being very aggressive. She cannot express her own story quite well. She shows looseness of association. She states that she was supposed to have had her Invega Sustenna shot on 06/20/2012. She states that she cannot get this. She states that she is homeless She has been diagnosed with paranoid schizophrenia in the past or at the very least, schizoaffective disorder, bipolar type. She appears to show some pressure of thought and speech at this time and she has looseness of association and seems to be somewhat paranoid, feeling that people are persecuting her. She has been minimally cooperative with her care. She states that she has been eating and sleeping fairly well. REVIEW OF SYSTEMS: She, on Review of Systems, denies any symptoms. PAST MEDICAL HISTORY: She has a past history of breast biopsy. Her drug screen has been negative. She is denying using any drugs. Her blood alcohol level was 0. She states that she has not been drinking. She has a past history of de compensating fairly quickly and appears to be primarily a robbie that she suffers but she becomes quite psychotic. She has had past admissions to [facility]. She is supposed to be seen at [facility] in [place] and she had been in the Neuropsychiatric Unit many times. She usually presents being quite abusive to her caretakers and essentially refuses to do anything. PHYSICAL EXAMINATION: NECK: Showed no masses or tenderness. Trachea was in the midline. EARS, NOSE, AND THROAT: Unremarkable. HEART: Showed a regular rate and rhythm with no murmurs or gallops. LUNGS: Clear to auscultation and percussion. ABDOMEN: Showed no deformity of her extremities. Range of motion was good. Her abdomen was flat and soft with no tenderness. NEUROLOGIC: Examination showed deep tendon reflexes were present and equal bilaterally. MENTAL STATUS EXAMINATION: Showed pressure of thought and speech. She showed a looseness of association. She appeared to be quite paranoid and she felt like people were judging her. She did know the day and date but it took a while for her to state that. She is more focused on imaginary illnesses and the way she felt people were treating her than she was with answering questions. Insight and judgment were quite poor and she has shown an adequate fund of knowledge. IMPRESSION: AXIS I: Schizoaffective disorder, bipolar type with robbie. PLAN: The plan will be to place her on Invega 6 milligrams a day. She will get her Sustenna shot on 06/20/2012 when it is due. Hospital Course Hospital Course The patient presented to the emergency room on 06/20/2020 with the following report: Patient is a 59-year-old female who was brought in by EMS for psychosis. Patient was arrested by police department today due to making a scene in public. The police stated patient was cursing at them and saying a lot of things that do not make any sense. Police Department said that they have had encounters with this patient in the past for same issue and she has a history of noncompliance with psych medications. Patient was then brought in by the EMS to the ED for evaluation. While here in the ED patient started escalating and cursing at staff and spitting at them. She was saying things that did not make any sense. Patient's response to my questions were incoherent and made no sense. I completed and signed the 96-hour hold paperwork and affidavit. She was admitted to the neuropsychiatric unit for definitive treatment of those issues. She refused to restart Invega which had been a successful medication in the past so we attempted another long-acting injectable Abilify. She showed some improvement but not enough to warrant discharge and she was placed on a 21-day-hold. She was put on lithium and Depakote in the Depakote was titrated and ultimately lithium was reduced prior to discharge with an ultimate plan for likely discontinuation. Geodon was initiated with positive effect but during this process she was placed on a 90-day-hold. For the most part she was compliant even in her resistance to being forced to stay she did have a couple incidents that led to when necessary medication including 1 wherein she was aggr essive. She demonstrated moderate improvement on the medication during this stay.During the hospitalization, the patient had routine laboratory studies which were within normal limits, except for a few outliers. Additionally, the patient had a general medical evaluation which was within normal limits and revealed no new acute processes, outside of those mentioned above. Discharge Summary At the time of discharge the patient denied all lethality, psychosis was resolving, and mood and anxiety were well managed. The patient endorsed a plan to avoid all drugs of abuse and follow-up with treatment as recommended. The patient was evaluated and deemed to be absent credible lethality, and had ac hieved the maximum benefit from an inpatient hospitalization, and so she was discharged. Meds NPU Home Medications Medication Instructions Recorded Confirmed Last Taken Type lithium carbonate 300 mg PO ACBREAKFAST 30 Days #30 07/29/20 12/30/20 Unknown Rx cap lithium carbonate 300 mg PO BEDTIME 30 Days #30 cap 07/29/20 12/30/20 Unknown Rx ziprasidone HCl 40 mg PO 0700,1700 30 Days #60 cap 07/29/20 12/30/20 Unknown Rx divalproex 500 mg PO BID 12/31/20 12/31/20 Unknown History olanzapine 10 mg PO BEDTIME 12/31/20 12/31/20 Unknown History Allergies Allergy/AdvReac Type Severity Reaction Status Date / Time No Known Allergies Allergy Verified 12/27/20 09:57 PFSH NPU PFSH: Social History Smoking and tobacco status: current every day smoker cigarettes Packs smoked pe r day: 1 Alcohol intake: current Alcohol intake frequency: holidays/special occasions only Mental Status Exam MSE Comments: This is a diminutive white female with hospital scrubs on with adequate grooming but limited eye contact. No abnormal movements except psychomotor agitation. Uncooperative with exam, in mild to moderate distress. Speech was increased rate and volume. Mood described as fine affect agitated. Thought process organized. Thought content: Patient denied suicidal or homicidal ideation, there were no delusions reported but clear paranoia existed, she denied any auditory or visual hallucinations. Attention and concentration were mostly intact and memory was unreliable but none were formally tested. She is alert and oriented times person and place. Insight and judgment are impaired and impulse control is impaired. Vitals/I&O/Wt Last Vital Signs Temp 97.9 F 12/31/20 04:06 Pulse 95 12/31/20 04:06 Resp 18 12/31/20 04:06 BP 148/80 12/31/20 04:06 Pulse Ox 93 12/31/20 04:06 Weight last 48 hrs Weight 56.699 kg Weight 56.699 kg Data NPU : 12/30/20 12:12 12/30/20 12:12 A&P Assessment and plan (1) Alcohol use: Status: Chronic (2) Schizoaffective disorder: Status: Acute (3) Psychosis: Status: Acute Additional A&P Information This is a 60-year-old white female with a history of schizoaffective disorder and addiction who presents with a unremarkable UDS but negligible levels of her Depakote and lithium, floridly psychotic and currently unwilling to take medication. 1. Continue current medication. Restarted medication but she is refusing. 2. Continue every 15 minute checks for safety. 3. Encourage individual, group and milieu therapies. 4. We will attempt to get collateral information as to what occurred that led to this decompensation and when things started to go downhill. 5. Will file for 96-hour hold expediently. Involuntary Hold Information 96 Hour Hold: 96 Hour Involuntary Admission: No 96 Hour Hold Ending Date: 06/26/20 96 Hour Hold Ending Time: 19:30 Attestations NPU Medical Necessity Statement*: Inpatient hospitalization is medically necessary and the clinically appropriate intervention at this time. We will monitor medications and make changes as indicated. Patient will be in the hospital for over two midnights. Likely length of stay 10 to 14 days. Will follow 21-day hold. Coding Level of Care Code Acute Mental Health Technician for Gustavo Burns Diagnoses Alcohol use Z72.89 Schizoaffective disorder F25.9 Psychosis F29
[2020-12-31 14:00] VITALS: RESP 18
--- NOTE | 2020-12-31 15:21 | PC.NURSE ---
At 1500 patient refused to take vitals and told myself and the other TEMPLATE FITTER to get out of her room.
--- NOTE | 2020-12-31 17:21 | PC.NURSE ---
patient refused 1700 and 1800 medication.
[2020-12-31 19:52] VITALS: RESP 18
--- NOTE | 2020-12-31 20:10 | PC.NURSE ---
attempt made to give pt her HS meds unsuccessful, pt yelling, cursing and approching staff in an confrontational manner. Security and Cook Room Supervisor contacted to assist with IM medication to be given.
--- NOTE | 2020-12-31 20:38 | PC.NURSE ---
Addendum entered by Tabby Muniz RN 01/07/21 06:36: ORDER FOR RESTRAINT STARTED ON 12-31-20 AT 2030 AND ENDED AT 2031. PATIENT GIVEN IM MEDICATIONS IN LEFT GLUTEUS PER SM FRETTED STRING INSTRUMENT REPAIRER, PATRICIA BLISS.SUSU SANZ Original Note: PATIENT IN [place], THROWING LID TO DIRTY CLOTHES HAMPER, YELLING , CUSSING, STOMPING AROUND, WENT TO HALLWAY BATHROOM, COULD HEAR WATER RUNNING, ASKED IF SHE WANTED TOWELLS SCREAMED YES. THEN COME STOMPING OUT WITH MEAN EXPRESSION ON FACE, CUSSING AND YELLING AGAIN. . SECURITY AND ANALYTICAL LAB ANALYST CALLED. PATIENT WAS IN ROOM, VERY UPSET WHEN STAFF WENT IN ROOM, YELLING, CUSSING, HITTING AND KICKING STAFF. PATIENT WAS RESTRAINED BY 4 STAFF PER SAFE TRAINING WHILE 4TH STAFF MEMBER GAVE INJECTIONS (2) IN LEFT HIP. WAS GIVEN B52, HAS BEEN REFUSING ALL MEDS DAILY WITH THESE OUTBURST, THREATENING STAFF AND THE HOSPITAL AND THIS TOWN. CHECKED ON OFTEN, AFTER 10 MINUTES RESTING QUIETLY.
[2020-12-31] MEDS: LORazepam 2 mg/mL INJ 1 mL IM (20:47)
[2020-12-31] MEDS: diphenhydrAMINE 50 mg/mL SDV 1mL IM (20:48)
[2020-12-31] MEDS: haloperidol inj 5 mg/mL INJ 1 mL IM (20:48)
--- NOTE | 2020-12-31 23:52 | PC.NURSE ---
HAS BEEN SLEEPING, RESP EVEN AND UNLABORED.
[2021-01-01 06:00] VITALS: RESP 17
[2021-01-01 14:00] VITALS: RESP 18
--- NOTE | 2021-01-01 14:07 | PM.NPN ---
Subjective NPU Subjective: Interval history: Khushi presented today very agitated and aggressive. She continues to deny any need to be in the hospital or take medication. She is very dismissive consistent with her previous presentations. Angry at the slightest slight or perceived slight. One angry episode was predicated by lack of access to coffee past break time. Mental Status Exam MSE Comments: This is a diminutive white female with hospital scrubs on with adequate grooming but limited eye contact. No abnormal movements except psychomotor agitation. Uncooperative with exam, in moderate to extreme distress. Speech was increased rate and volume. Mood described as upset obviously, affect agitated. Thought process organized. Thought content: Patient denied suicidal or homicidal ideation, there were no delusions reported but clear paranoia and persecutory thinking existed, she denied any auditory or visual hallucinations. Attention and concentration were limited and memory was unreliable but none were formally tested. She is alert and oriented times person and place. Insight and judgment are impaired and impulse control is impaired. Vitals/I&O/Wt Last Vital Signs Temp 97.9 F 12/31/20 04:06 Pulse 95 12/31/20 04:06 Resp 17 01/01/21 20:21 BP 148/80 12/31/20 04:06 Pulse Ox 93 12/31/20 04:06 Data NPU : 12/30/20 12:12 12/30/20 12:12 A&P Additional A&P Information (1) Alcohol use: (2) Schizoaffective disorder: (3) Psychosis: Additional A&P Information This is a 60-year-old white female with a history of schizoaffective disorder and addiction who presents with a unremarkable UDS but negligible levels of her Depakote and lithium, floridly psychotic and currently unwilling to take medication. 1. Continue current medication. Restarted medication but she is refusing. 2. Continue every 15 minute checks for safety. 3. Encourage individual, group and milieu therapies. 4. We will attempt to get collateral information as to what occurred that led to this decompensation and when things started to go downhill. 5. Will file for 96-hour hold and 21-day hold paperwork immediately. Involuntary Hold Information 96 Hour Hold: 96 Hour Involuntary Admission: No 96 Hour Hold Ending Date: 06/26/20 96 Hour Hold Ending Time: 19:30 Attestations NPU Medical Necessity Statement*: Inpatient hospitalization is medically necessary and the clinically appropriate intervention at this time. We will monitor medications and make changes as indicated. Likely length of stay 10 to 14 days. Coding Level of Care Code Acute Line Haul Owner Operator for Gustavo Burns
--- NOTE | 2021-01-01 16:47 | PC.RESP ---
Smoking Cessation information sent to patient.
[2021-01-01 20:21] VITALS: RESP 17
--- NOTE | 2021-01-01 20:41 | PC.NURSE ---
Attempt made to give pt her evening and HS meds, pt refused, cursing at staff. will attempt again if pt presents in a more cooperative opportunity.
--- NOTE | 2021-01-02 01:48 | PC.NURSE ---
PT NOTED TO BE AWAKE IN ROOM, YELLING & SLAMMING DOORS. STAFF POCKETS AND PIECES NECKTIE OPERATOR WENT TO SEE IF PT NEEDED ASSISTANCE. DUE TO PREVIOUS KNOWN INCIDENTS OF PT OUTBURSTS, STAFF STOOD IN OUTER ROOM IN PT'S ROOM DOORWAY, TO ASSIST PT. PT REFUSED NEED FOR ASSISTANCE, TELLING STAFF TO GET THE HL OUT PT THEN LAID DOWN IN HER BED AND COVERED UP.
[2021-01-02 06:00] VITALS: RESP 18
[2021-01-02] MEDS: ziprasidone hcl 40 mg Capsule PO ×2 (06:16→16:19)
[2021-01-02] MEDS: lithium carbonate 300 mg Capsule PO ×2 (06:36→20:27)
[2021-01-02] MEDS: divalproex DR 500 mg Tablet PO ×2 (06:43→16:19)
[2021-01-02 14:00] VITALS: BP 152/76; PULSE 83; RESP 20; TEMP 36.1; O2SAT 99
--- NOTE | 2021-01-02 19:01 | P.PN_ITS ---
Subjective NPU Subjective: Interval history: Ana presents today continuing to appear very irritated and upset but is currently taking medication. She is continuing to report that she is annoyed about being here and does not understand why people said what they did which ended up getting her here but at this point she is being adherent with the medication and we will continue in this vein. For success and ability to continue to treat her as she gets to the point where she is more coherent and partially agreeable we will follow documentation with the court for a 21-day hold status. Mental Status Exam MSE Comments: This is a diminutive white female with hospital scrubs on with adequate grooming but limited eye contact. No abnormal movements except psychomotor agitation. Uncooperative with exam, in moderate distress. Speech was increased rate and volume. Mood described as Okay, affect annoyed. Thought process organized. Thought content: Patient denied suicidal or homicidal ideation, there were no delusions reported but clear paranoia and persecutory thinking existed, she denied any auditory or visual hallucinations. Attention and concentration were limited and memory was unreliable but none were formally tested. She is alert and oriented times person and place. Insight and judgment are impaired and impulse control is impaired. Vitals/I&O/Wt Last Vital Signs Temp 97.0 F L 01/02/21 14:00 Pulse 83 01/02/21 14:00 Resp 20 H 01/02/21 14:00 BP 152/76 01/02/21 14:00 Pulse Ox 99 01/02/21 14:00 Data NPU : 12/30/20 12:12 12/30/20 12:12 A&P Additional A&P Information (1) Alcohol use: (2) Schizoaffective disorder: (3) Psychosis: Additional A&P Information This is a 60-year-old white female with a history of schizoaffective disorder and addiction who presents with a unremarkable UDS but negligible levels of her Depakote and lithium, floridly psychotic and currently unwilling to take medication. 1. Continue current medication. She has taken some of her medication since initial refusal. 2. Continue every 15 minute checks for safety. 3. Encourage individual, group and milieu therapies. 4. We will attempt to get collateral information as to what occurred that led to this decompensation and when things started to go downhill. 5. Will file for 96-hour hold and 21-day hold paperwork. Involuntary Hold Information 96 Hour Hold: 96 Hour Involuntary Admission: No 96 Hour Hold Ending Date: 06/26/20 96 Hour Hold Ending Time: 19:30 Attestations NPU Medical Necessity Statement*: Inpatient hospitalization is medically necessary and the clinically appropriate intervention at this time. We will monitor medications and make changes as indicated. Likely length of stay 10 to 14 days. Coding Level of Care Code Acute Refractory Specialist for Gustavo Burns
[2021-01-02 19:46] VITALS: RESP 18
[2021-01-02] MEDS: OLANZapine 5 mg ODT 10 MG PO (20:26)
--- NOTE | 2021-01-02 20:50 | PC.NURSE ---
The patient came to the nurse's station to report he has a mechanism in his head with water on one side and mercury on the other. When he moved them together they opened up to the [employer]. He gave the numbers to all his friends and they won millions. He can use binary code to open up the earth to the cardoso of mercury. If I give him a piece of paper he would be able to change it to some other form. He is smiling and happily reporting all the special fabian he possesses.
--- NOTE | 2021-01-02 21:25 | PC.NURSE ---
pt took evening meds fine this evening with a 8oz cup of decaf coffee.
[2021-01-03 05:52] VITALS: BP 139/82; PULSE 64; RESP 18; TEMP 36.4; O2SAT 91
[2021-01-03] MEDS: lithium carbonate 300 mg Capsule PO ×2 (05:57→21:06)
[2021-01-03] MEDS: ziprasidone hcl 40 mg Capsule PO ×2 (05:57→17:24)
[2021-01-03] MEDS: divalproex DR 500 mg Tablet PO ×2 (12:19→21:09)
[2021-01-03 13:55] VITALS: BP 155/69; PULSE 85; RESP 18; TEMP 36.3; O2SAT 97
[2021-01-03] MEDS: blistex lip oint 7 gm Tube 1 APPLIC TOPICAL (14:25)
--- NOTE | 2021-01-03 17:08 | PM.NPN ---
Subjective NPU Subjective: Interval history: Ana presents today reporting that she has been taking the medication to some degree. We had an extensive conversation about how she has been taking and not taking the medication and that is the reason why we are planning for a 96-hour hold and 21-day follow-up. She reported that she does not like how the lithium makes her feel but I counted with the fact that there are 3 other very important medications that she is not taking. She endorsed a willingness to take Zyprexa Depakote and Geodon and I agreed to hold the lithium and see how she does on those 3 medications. We discussed the risks benefits and alternatives of following the above-mentioned plan and she understood and agreed to proceed as is documented in this note. Mental Status Exam MSE Comments: This is a diminutive white female with hospital scrubs on with adequate grooming but limited eye contact. No abnormal movements except mild psychomotor agitation. More cooperative with exam, in mild distress. Speech was slightly increased rate and volume. Mood described as all right, affect slightly less annoyed. Thought process organized. Thought content: Patient denied suicidal or homicidal ideation, there were no delusions reported but clear paranoia and persecutory thinking existed, she denied any auditory or visual hallucinations. Attention and concentration were limited and memory was unreliable but none were formally tested. She is alert and oriented times person and place. Insight and judgment are impaired and impulse control is impaired. Vitals/I&O/Wt Last Vital Signs Temp 98.0 F 01/03/21 20:26 Pulse 80 01/03/21 20:26 Resp 16 01/03/21 20:26 BP 171/84 01/03/21 20:26 Pulse Ox 95 01/03/21 20:26 Data NPU : 12/30/20 12:12 12/30/20 12:12 A&P Additional A&P Information (1) Alcohol use: (2) Schizoaffective disorder: (3) Psychosis: Additional A&P Information This is a 60-year-old white female with a history of schizoaffective disorder and addiction who presents with a unremarkable UDS but negligible levels of her Depakote and lithium, floridly psychotic and currently unwilling to take medication. 1. Continue current medication. We will follow if he is compliant with medications except lithium 2. Continue every 15 minute checks for safety. 3. Encourage individual, group and milieu therapies. 4. We will attempt to get collateral information as to what occurred that led to this decompensation and when things started to go downhill. 5. Will file for 96-hour hold and 21-day hold paperwork. Involuntary Hold Information 96 Hour Hold: 96 Hour Involuntary Admission: No 96 Hour Hold Ending Date: 06/26/20 96 Hour Hold Ending Time: 19:30 Attestations NPU Medical Necessity Statement*: Inpatient hospitalization is medically necessary and the clinically appropriate intervention at this time. We will monitor medications and make changes as indicated. Likely length of stay 10 to 14 days. Coding Level of Care Code Acute Wringer And Setter for Gustavo Burns
[2021-01-03 20:26] VITALS: BP 171/84; PULSE 80; RESP 16; TEMP 36.7; O2SAT 95
[2021-01-03] MEDS: OLANZapine 5 mg ODT 10 MG PO (21:06)
[2021-01-04 06:00] VITALS: RESP 18
[2021-01-04] MEDS: ziprasidone hcl 40 mg Capsule PO ×2 (07:52→16:52)
[2021-01-04] MEDS: divalproex DR 500 mg Tablet PO ×2 (07:52→21:18)
[2021-01-04] MEDS: lithium carbonate 300 mg Capsule PO ×2 (07:52→21:18)
--- NOTE | 2021-01-04 13:05 | PM.NPN ---
Subjective NPU Subjective: Interval history: Ana presents today continuing with her standard irritability but taking her medication with some insistence. Most of her commentary is still nonsensical and tangential see anything about random subjects that have no bearing on the questions that are being asked. Mental Status Exam MSE Comments: This is a diminutive white female with hospital scrubs on with adequate grooming but limited eye contact. No abnormal movements except mild psychomotor retardation. More cooperative with exam, in no acute distress. Speech was slightly decreased rate and volume. Mood described as fine, affect slightly less annoyed. Thought process organized. Thought content: Patient denied suicidal or homicidal ideation, there were no delusions reported but clear paranoia and persecutory thinking existed, she denied any auditory or visual hallucinations. Attention and concentration were limited and memory was unreliable but none were formally tested. She is alert and oriented times person and place. Insight and judgment are impaired and impulse control is impaired. Vitals/I&O/Wt Last Vital Signs Temp 98.0 F 01/03/21 20:26 Pulse 80 01/03/21 20:26 Resp 18 01/04/21 06:00 BP 171/84 01/03/21 20:26 Pulse Ox 95 01/03/21 20:26 Data NPU : 12/30/20 12:12 12/30/20 12:12 A&P Additional A&P Information (1) Alcohol use: (2) Schizoaffective disorder: (3) Psychosis: Additional A&P Information This is a 60-year-old white female with a history of schizoaffective disorder and addiction who presents with a unremarkable UDS but negligible levels of her Depakote and lithium, floridly psychotic and currently unwilling to take medication. 1. Continue current medication. We will follow if he is compliant with medications except lithium 2. Continue every 15 minute checks for safety. 3. Encourage individual, group and milieu therapies. 4. We will attempt to get collateral information as to what occurred that led to this decompensation and when things started to go downhill. 5. Will file for 96-hour hold and 21-day hold paperwork. Involuntary Hold Information 96 Hour Hold: 96 Hour Involuntary Admission: No 96 Hour Hold Ending Date: 06/26/20 96 Hour Hold Ending Time: 19:30 Attestations NPU Medical Necessity Statement*: Inpatient hospitalization is medically necessary and the clinically appropriate intervention at this time. We will monitor medications and make changes as indicated. Likely length of stay 10 to 14 days. Coding Level of Care Code Acute Dental Coordinator for Gustavo Burns
[2021-01-04 13:25] VITALS: BP 85/53; PULSE 90; RESP 16; TEMP 36.8; O2SAT 92
--- NOTE | 2021-01-04 18:57 | PM.NPTHER ---
NPU Therapy Progress Note Therapy Progress Note Date: 01/04/21 Time In: 18:20 Time Out: 18:40 Symptoms Reported: health concerns about her teeth; observed to have continued delusional speech Mood: friendly, delusional Progress Note: BRIELLE spoke with Ana as she was resting in bed. She turns over and is friendly to speak with this therapist. Her ability to conversate is limited due to her ongoing psychosis and delusions. She is concerned about getting her Medicaid active to address her dental concerns about both her teeth and gums. She is frustrated due to her phone breaking, apparently because of water damage. DEVELOPER PROVER UPHOLSTERING attempts to redirect conversation to more emotional topics related to her care; however, she does not stay on these topics for long. She does convey issues with anger and makes gestures about blowing people up when they have done her wrong. She speaks about yarsani but feels she has sinned. She admits using alcohol to cope and enjoys a big glass of wine . Attempts at redirecting her to her need of positive coping skills was limited as her ability for rational thinking remains lowered. Intervention: BRIELLE used empathetic listening and support. BRIELLE attempted to redirect conversation to productive topics; however, Ana's ability for this type of communication is lowered right now. SHe remains pleasant and thanks BRIELLE for stopping by. Reported Goals Before Discharge: figure out about her medicaid card or other health insurance to follow up with her dental concerns once discharged
[2021-01-04] MEDS: OLANZapine 5 mg ODT 10 MG PO (21:18)
[2021-01-04 21:21] VITALS: BP 107/60; PULSE 103; RESP 16; TEMP 36.6; O2SAT 95
[2021-01-05 06:00] VITALS: BP 132/71; PULSE 96; RESP 19; TEMP 36.2; O2SAT 95
[2021-01-05] MEDS: ziprasidone hcl 40 mg Capsule PO ×2 (06:16→18:00)
[2021-01-05] MEDS: lithium carbonate 300 mg Capsule PO ×2 (06:16→21:13)
[2021-01-05] MEDS: divalproex DR 500 mg Tablet PO ×2 (08:10→21:13)
[2021-01-05 14:00] VITALS: BP 131/64; PULSE 88; RESP 16; TEMP 36.4; O2SAT 94
--- NOTE | 2021-01-05 16:46 | P.PN_ITS ---
Subjective NPU Subjective: Interval history: Ana presents today reporting that she just wants to leave. She continues to reluctantly take her medication but today she greeted me with telling me that I am and asshole going on to say that was the big deal we both have them. She went on to say many nonsensical statements but she continues to take her medication. Mental Status Exam MSE Comments: This is a diminutive white female with hospital scrubs on with adequate grooming but limited eye contact. No abnormal movements except mild psychomotor retardation. More cooperative with exam, in mild distress distress. Speech was slightly decreased rate and volume. Mood described as what ever, affect slightly annoyed. Thought process organized. Thought content: Patient denied suicidal or homicidal ideation, there were no delusions reported but clear paranoia and persecutory thinking existed, she denied any auditory or visual hallucinations. Attention and concentration were limited and memory was unreliable but none were formally tested. She is alert and oriented times person and place. Insight and judgment are impaired and impulse control is impaired. Vitals/I&O/Wt Last Vital Signs Temp 97.5 F L 01/05/21 14:00 Pulse 88 01/05/21 14:00 Resp 18 01/05/21 22:00 BP 131/64 01/05/21 14:00 Pulse Ox 94 01/05/21 14:00 Data NPU : 12/30/20 12:12 12/30/20 12:12 A&P Additional A&P Information (1) Alcohol use: (2) Schizoaffective disorder: (3) Psychosis: Additional A&P Information This is a 60-year-old white female with a history of schizoaffective disorder and addiction who presents with a unremarkable UDS but negligible levels of her Depakote and lithium, floridly psychotic and currently unwilling to take medication. 1. Continue current medication. We will follow if he is compliant with medications except lithium 2. Continue every 15 minute checks for safety. 3. Encourage individual, group and milieu therapies. 4. We will attempt to get collateral information as to what occurred that led to this decompensation and when things started to go downhill. 5. Will file for 96-hour hold and 21-day hold paperwork. Involuntary Hold Information 96 Hour Hold: 96 Hour Involuntary Admission: No 96 Hour Hold Ending Date: 06/26/20 96 Hour Hold Ending Time: 19:30 Attestations NPU Medical Necessity Statement*: Inpatient hospitalization is medically necessary and the clinically appropriate intervention at this time. We will monitor medications and make changes as indicated. Likely length of stay 10 to 14 days. Coding Level of Care Code Acute In Tube Conversion Technician for Gustavo Burns
[2021-01-05] MEDS: OLANZapine 5 mg ODT 10 MG PO (21:14)
[2021-01-05] MEDS: trazodone 50 mg Tablet PO (21:35)
[2021-01-05 22:00] VITALS: RESP 18
--- NOTE | 2021-01-05 22:10 | PC.NURSE ---
Patient was uncopperative with vitals. Respirations were taken.
--- NOTE | 2021-01-06 04:46 | PC.NURSE ---
PM Assessment Pt is 60/F who is experiencing grandiose delusions, at shift change, staff greeted pt. Pt response, Yeah, they got you wired up to, you are one of those robot people, take me on to hell, right with that fucking doctor, he lied to me, this fucking medicine is not working, I don't want it. Pt is upset about taking the current medications. Pt was easier to redirect than in previous admission. Pt did not sleep this evening. She went to bed at 0402 this morning. All night, she was prone to fits of outrage, yelling, banged on the tables in the dayroom, cursing not at the staff but loud enough for nurses to hear his. Pt makes nonsensical sentences, she does not always answer questions appropriately, however, rather than become assaultive, she walks away. Pt does understand on some level how her behavior affects those around her. She said, I know, its late, don't wake up the other patients. Along with other such remarks. Pt has sat in the hallway, checked the doors for a way out, and paced all evening until she went to bed
[2021-01-06 06:00] VITALS: RESP 16
[2021-01-06] MEDS: ziprasidone hcl 40 mg Capsule PO ×2 (08:21→16:17)
[2021-01-06] MEDS: lithium carbonate 300 mg Capsule PO ×2 (08:21→21:29)
[2021-01-06] MEDS: divalproex DR 500 mg Tablet PO ×2 (08:21→21:00)
[2021-01-06 13:50] VITALS: BP 114/70; PULSE 80; RESP 18; TEMP 36.2; O2SAT 100
--- NOTE | 2021-01-06 17:38 | P.PN_ITS ---
Subjective NPU Subjective: Interval history: Ana continues to adjust to the restarting of her medication. Significant irritable wandering into the hallways cursing and sometimes scaring other patients. With some prodding she is taking her medication but is very resistant to that outcome. She continues to ask about being discharged and gets very angry when I tell going to be a long time. Mental Status Exam MSE Comments: This is a diminutive white female with hospital scrubs on with adequate grooming but limited eye contact. No abnormal movements except mild psychomotor retardation. More cooperative with exam, in mild/moderate distress. Speech was slightly decreased rate and volume with outburst of yelling. Mood described as no response but and eye roll, affect slightly annoyed. Thought process organized. Thought content: Patient denied suicidal or homicidal ideation, there were no delusions reported but clear paranoia and persecutory thinking existed, she denied any auditory or visual hallucinations. Attention and concentration were limited and memory was unreliable but none were formally tested. She is alert and oriented times person and place. Insight and judgment are impaired and impulse control is impaired. Vitals/I&O/Wt Last Vital Signs Temp 97.1 F L 01/06/21 13:50 Pulse 80 01/06/21 13:50 Resp 18 01/06/21 13:50 BP 114/70 01/06/21 13:50 Pulse Ox 100 01/06/21 13:50 Data NPU : 12/30/20 12:12 12/30/20 12:12 A&P Additional A&P Information (1) Alcohol use: (2) Schizoaffective disorder: (3) Psychosis: Additional A&P Information This is a 60-year-old white female with a history of schizoaffective disorder and addiction who presents with a unremarkable UDS but negligible levels of her Depakote and lithium, floridly psychotic and currently unwilling to take medication. 1. Continue current medication. We will follow if he is compliant with medications except lithium 2. Continue every 15 minute checks for safety. 3. Encourage individual, group and milieu therapies. 4. We will attempt to get collateral information as to what occurred that led to this decompensation and when things started to go downhill. 5. Will file for 96-hour hold and 21-day hold paperwork. Involuntary Hold Information 96 Hour Hold: 96 Hour Involuntary Admission: No 96 Hour Hold Ending Date: 06/26/20 96 Hour Hold Ending Time: 19:30 Attestations NPU Medical Necessity Statement*: Inpatient hospitalization is medically necessary and the clinically appropriate intervention at this time. We will monitor medications and make changes as indicated. Likely length of stay 10 to 14 days. Coding Level of Care Code Acute Space Systems Operations Superintendent for Gustavo Burns
[2021-01-06 20:35] VITALS: RESP 15
[2021-01-06] MEDS: trazodone 50 mg Tablet PO (21:29)
[2021-01-06] MEDS: OLANZapine 5 mg ODT 10 MG PO (21:30)
--- NOTE | 2021-01-06 22:26 | PC.NURSE ---
Tooth pain Pt reports tooth pain rated at 10 on 1-10 scale, pt does not want tylenol, she requested some topical numbing like orajel.
--- NOTE | 2021-01-07 04:59 | PC.NURSE ---
possible oral infection pt complaint of oral pain, applied orajel, pain lessened. Upon inspection of oral cavity and mouth, pt appears to have gum disease, hallitosis, and what appears to be an infected abscess in the gum. Pt would like to have antibiotics and something to relieve pain in her mouth. Pt has definate signs of decay and broken teeth. May need a consult for possible infection.
[2021-01-07 06:00] VITALS: BP 130/81; PULSE 86; RESP 18; TEMP 36.8; O2SAT 95; BMI 22.8
[2021-01-07] MEDS: lithium carbonate 300 mg Capsule PO ×2 (06:00→19:59)
[2021-01-07] MEDS: ziprasidone hcl 40 mg Capsule PO ×2 (06:00→17:41)
[2021-01-07] MEDS: divalproex DR 500 mg Tablet PO ×2 (08:57→19:59)
--- NOTE | 2021-01-07 11:55 | PM.NPN ---
Subjective NPU Subjective: Interval history: Ana presents today reporting strange memories that she is recounting in a very tangential way. She continues to take the medication but have very very slow changes. Still prone to periodic angry and cursing. Still expresses thoughts about discharge but absent clarity and purpose. Mental Status Exam MSE Comments: This is a diminutive white female with hospital scrubs on with adequate grooming but limited eye contact. No abnormal movements except mild psychomotor retardation. More cooperative with exam, in mild/moderate distress. Speech was slightly decreased rate and volume. Mood described with a five-minute response that had nothing to do with mood, affect slightly annoyed. Thought process organized. Thought content: Patient denied suicidal or homicidal ideation, there were no delusions reported but clear paranoia and persecutory thinking existed, she denied any auditory or visual hallucinations. Attention and concentration were limited and memory was unreliable but none were formally tested. She is alert and oriented times person and place. Insight and judgment are impaired and impulse control is impaired. Vitals/I&O/Wt Last Vital Signs Temp 98.3 F 01/07/21 06:00 Pulse 86 01/07/21 06:00 Resp 18 01/07/21 06:00 BP 130/81 01/07/21 06:00 Pulse Ox 95 01/07/21 06:00 Weight last 48 hrs Weight 56.699 kg Data NPU : 12/30/20 12:12 12/30/20 12:12 A&P Additional A&P Information (1) Alcohol use: (2) Schizoaffective disorder: (3) Psychosis: Additional A&P Information This is a 60-year-old white female with a history of schizoaffective disorder and addiction who presents with a unremarkable UDS but negligible levels of her Depakote and lithium, floridly psychotic and currently unwilling to take medication. 1. Continue current medication. 2. Continue every 15 minute checks for safety. 3. Encourage individual, group and milieu therapies. 4. We will attempt to get collateral information as to what occurred that led to this decompensation and when things started to go downhill. 5. Will file for 96-hour hold and 21-day hold paperwork. Involuntary Hold Information 96 Hour Hold: 96 Hour Involuntary Admission: No 96 Hour Hold Ending Date: 06/26/20 96 Hour Hold Ending Time: 19:30 Attestations NPU Medical Necessity Statement*: Inpatient hospitalization is medically necessary and the clinically appropriate intervention at this time. We will monitor medications and make changes as indicated. Likely length of stay 10 to 14 days. Coding Level of Care Code Acute Contact Center Team Lead for Gustavo Burns
[2021-01-07 14:00] VITALS: BP 108/64; PULSE 109; RESP 18; TEMP 37.1
[2021-01-07] MEDS: benzocaine 20% 7 gm 1 APPLIC MUCOUS MEM (14:20)
[2021-01-07 19:37] VITALS: RESP 19
[2021-01-07] MEDS: OLANZapine 5 mg ODT 10 MG PO (19:59)
[2021-01-08] MEDS: ziprasidone hcl 40 mg Capsule PO ×2 (05:06→16:56)
[2021-01-08] MEDS: lithium carbonate 300 mg Capsule PO ×2 (05:06→20:29)
[2021-01-08 06:00] VITALS: BP 152/92; PULSE 99; RESP 18; TEMP 36.6; O2SAT 95
[2021-01-08] MEDS: divalproex DR 500 mg Tablet PO ×2 (08:58→20:29)
--- NOTE | 2021-01-08 13:32 | P.PN_ITS ---
Subjective NPU Subjective: Interval history: Ana presents today once again being fairly agitated and aggressive with this telegraphic typewriter mechanic. Her first and only question was when did this telegraphic typewriter mechanic thinks she would be leaving, the answer was once she was doing better. Her response to this was to scream, got behind his right ear with her arms up, like she had a shotgun and then fired that imaginary shotgun saying that's about the only thing that will help me at all. I attempted to discuss the situation further with her but she walked away and said she didn't want anything to do with me. Mental Status Exam MSE Comments: This is a diminutive white female with hospital scrubs on with adequate grooming and eye contact. No abnormal movements except mild psychomotor retardation followed by significant psychomotor agitation. Uncooperative with exam, in moderate to extreme distress. Speech was slightly decreased rate and volume followed by getting loud and agitated. Mood described as okay, affect escalated to extremely agitated. Thought process organized. Thought content: Patient denied suicidal or homicidal ideation, but mimed shooting this telegraphic typewriter mechanic in stating this illumination was help her, there were no delusions reported but clear paranoia and persecutory thinking existed, she did not appear to be attending to internal stimuli. Attention and concentration were limited and memory was unreliable but none were formally tested. She is alert and oriented times person and place. Insight and judgment are impaired and impulse control is impaired. Vitals/I&O/Wt Last Vital Signs Temp 97.9 F 01/08/21 06:00 Pulse 99 01/08/21 06:00 Resp 18 01/08/21 06:00 BP 152/92 01/08/21 06:00 Pulse Ox 95 01/08/21 06:00 Weight last 48 hrs Weight 56.699 kg Data NPU : 12/30/20 12:12 12/30/20 12:12 A&P Additional A&P Information (1) Alcohol use: (2) Schizoaffective disorder: (3) Psychosis: Additional A&P Information This is a 60-year-old white female with a history of schizoaffective disorder and addiction who presents with a unremarkable UDS but negligible levels of her Depakote and lithium, floridly psychotic and currently unwilling to take medicat ion. 1. Continue current medication. 2. Continue every 15 minute checks for safety. 3. Encourage individual, group and milieu therapies. 4. We will attempt to get collateral information as to what occurred that led to this decompensation and when things started to go downhill. 5. Will file for 96-hour hold and 21-day hold paperwork. Involuntary Hold Information 96 Hour Hold: 96 Hour Involuntary Admission: No 96 Hour Hold Ending Date: 06/26/20 96 Hour Hold Ending Time: 19:30 Attestations NPU Medical Necessity Statement*: Inpatient hospitalization is medically necessary and the clinically appropriate intervention at this time. We will monitor medications and make changes as indicated. Likely length of stay 10 to 14 days. Coding Level of Care Code Acute Imaging Aide for Gustavo Burns
[2021-01-08 14:00] VITALS: BP 132/74; PULSE 93; RESP 20; TEMP 36.2; O2SAT 94
[2021-01-08] MEDS: OLANZapine 5 mg ODT 10 MG PO (20:29)
[2021-01-08 20:39] VITALS: RESP 17
--- NOTE | 2021-01-08 21:38 | PC.NURSE ---
PM ASSESSMENT PT CALM, COOPERATIVE, PACING THE HALLWAY, ANSWERS QUESTIONS INAPPROPRIATELY, PT TOOK MEDICATION WITHOUT INCIDENT, RR 17 HOWEVER, V/S NOT OBTAINED, PT SLEEPING AT THIS TIME.
[2021-01-09] MEDS: lithium carbonate 300 mg Capsule PO ×2 (05:34→20:36)
[2021-01-09] MEDS: ziprasidone hcl 40 mg Capsule PO ×2 (05:34→17:00)
[2021-01-09 06:00] VITALS: BP 147/82; PULSE 97; RESP 18; TEMP 36.6; O2SAT 98
[2021-01-09] MEDS: divalproex DR 500 mg Tablet PO ×2 (08:56→20:35)
[2021-01-09 13:41] VITALS: BP 151/93; PULSE 84; RESP 18; TEMP 36.3; O2SAT 97
--- NOTE | 2021-01-09 14:36 | PM.NPN ---
Subjective NPU Subjective: Interval history: Ana presents today continuing to struggle with her self control. Screening aggressively at the top of her lungs from time to time. Seemingly calm walking down the hallways and then walking in her room and screaming so aggressively 1 cannot avoid checking in on her to make sure all right. Additionally unnerving for the other clients. Mental Status Exam MSE Comments: This is a diminutive white female with hospital scrubs on with adequate grooming and eye contact. No abnormal movements except mild psychomotor retardation followed by significant psychomotor agitation. Uncooperative with exam, in moderate to extreme distress. Speech was slightly decreased rate and volume followed by getting loud and agitated. Mood not described, affect escalated to extremely agitated. Thought process organized intermixed with disorganized. Thought content: Patient denied suicidal or homicidal ideation, but then screaming very aggressively like she was going to attack this leader writer, there were no delusions reported but clear paranoia and persecutory thinking existed, she was having moments she would go in her room and talk to herself and scream as if she is interacting with someone else. Attention and concentration were limited and memory was unreliable but none were formally tested. She is alert and oriented times person and place. Insight and judgment are impaired and impulse control is impaired. Vitals/I&O/Wt Last Vital Signs Temp 99.3 F 01/09/21 19:24 Pulse 91 01/09/21 19:24 Resp 21 H 01/09/21 19:24 BP 133/64 01/09/21 19:24 Pulse Ox 94 01/09/21 19:24 Data NPU : 12/30/20 12:12 12/30/20 12:12 A&P Additional A&P Information (1) Alcohol use: (2) Schizoaffective disorder: (3) Psychosis: Additional A&P Information This is a 60-year-old white female with a history of schizoaffective disorder and addiction who presents with a unremarkable UDS but negligible levels of her Depakote and lithium, floridly psychotic and currently unwilling to take medication. 1. Continue current medication. 2. Continue every 15 minute checks for safety. 3. Encourage individual, group and milieu therapies. 4. We will attempt to get collateral information as to what occurred that led to this decompensation and when things started to go downhill. Involuntary Hold Information 96 Hour Hold: 96 Hour Involuntary Admission: No 96 Hour Hold Ending Date: 06/26/20 96 Hour Hold Ending Time: 19:30 Attestations NPU Medical Necessity Statement*: Inpatient hospitalization is medically necessary and the clinically appropriate intervention at this time. We will monitor medications and make changes as indicated. Likely length of stay 10 to 14 days. Coding Level of Care Code Acute Barrel Endshake Adjuster for Gustavo Burns
[2021-01-09 19:24] VITALS: BP 133/64; PULSE 91; RESP 21; TEMP 37.4; O2SAT 94
[2021-01-09] MEDS: OLANZapine 5 mg ODT 10 MG PO (20:35)
--- NOTE | 2021-01-09 21:06 | PC.NURSE ---
PM ASSESSMENT V/S ARE ALL WNL, HEART/LUNG SOUNDS ARE NORMAL, PT DENIES PAIN, STAFF GREETED PATIENT AND RESPONSE WAS ITS GONNA BE A BAD DAY PT SEEMS IRRITABLE, RESISTIVE TO CARE. PT IS AVOIDING STAFF THIS EVENING, SHE HAS PACED THE LOPEZ TO THE DAYROOM TO HER ROOM SINCE THE BEGINNING OF SHIFT. SHE IS IN HER ROOM RESTING,
--- NOTE | 2021-01-10 04:49 | PC.NURSE ---
BEHAVIOR PT HAS BEEN UPSET MOST OF THE NIGHT, SHE IS INTRUSIVE, YELLING, SWINGING AT UNSEEN OBJECTS WITH FLAILING ARMS DOWN IN THE DAYROOM. PT IS NEGATIVE WHEN SHE SPEAKS, SHE IS LESS VERBALLY AGGRESSIVE WITH STAFF BUT CONTINUES TO YELL AND PACE.
[2021-01-10] MEDS: lithium carbonate 300 mg Capsule PO ×2 (05:57→21:09)
[2021-01-10] MEDS: ziprasidone hcl 40 mg Capsule PO ×2 (05:57→16:45)
[2021-01-10 06:00] VITALS: RESP 21
[2021-01-10 14:00] VITALS: BP 129/77; PULSE 91; RESP 17; TEMP 36.3; O2SAT 97
--- NOTE | 2021-01-10 16:13 | P.PN_ITS ---
Subjective NPU Subjective: Interval history: Ana presents today seeming to have a little bit better of a day. This is the first day in several days wherein she and I can have a conversation in close proximity without any concern she might be explosive or aggressive towards me just based on her affect. That exactly continues to be floridly psychotic and is unable to really communicate about specific topics but can occasionally give me stories today that are organized stories about things of no consequence or tangentially arrived upon she did refuse her Depakote 1 time at this point but does continue to take the medication was limited response thus far. Mental Status Exam MSE Comments: This is a diminutive white female with hospital scrubs on with adequate grooming and eye contact. No abnormal movements except mild psychomotor retardation followed by limited psychomotor agitation. More cooperative with exam, in less moments of distress. Speech was slightly decreased rate and volume with less episodes today of getting loud and agitated. Mood described as okay, affect much less agitated. Thought process organized intermixed with disorganization. Thought content: Patient denied suicidal or homicidal ideation, there were no delusions reported but clear paranoia and persecutory thinking existed, she was having less moments where she would go in her room and talk to herself and scream as if she is interacting with someone else. Attention and concentration were improved and memory was unreliable but none were formally tested. She is alert and oriented times person and place. Insight and judgment are impaired and impulse control is impaired. Vitals/I&O/Wt Last Vital Signs Temp 97.6 F 01/10/21 22:00 Pulse 88 01/10/21 22:00 Resp 18 01/10/21 22:00 BP 124/72 01/10/21 22:00 Pulse Ox 97 01/10/21 22:00 Data NPU : 12/30/20 12:12 12/30/20 12:12 A&P Additional A&P Information (1) Alcohol use: (2) Schizoaffective disorder: (3) Psychosis: Additional A&P Information This is a 60-year-old white female with a history of schizoaffective disorder and addiction who presents with a unremarkable UDS but negligible levels of her Depakote and lithium, floridly psychotic and currently unwilling to take medicat ion. 1. Continue current medication. 2. Continue every 15 minute checks for safety. 3. Encourage individual, group and milieu therapies. 4. We will attempt to get collateral information as to what occurred that led to this decompensation and when things started to go downhill. 5. 96-hour hold information filled will be submitted tomorrow. Involuntary Hold Information 96 Hour Hold: 96 Hour Involuntary Admission: No 96 Hour Hold Ending Date: 06/26/20 96 Hour Hold Ending Time: 19:30 Attestations NPU Medical Necessity Statement*: Inpatient hospitalization is medically necessary and the clinically appropriate intervention at this time. We will monitor medications and make changes as indicated. Likely length of stay 10 to 14 days. Coding Level of Care Code Acute Clothing Pattern Preparer for Gustavo Burns
[2021-01-10] MEDS: divalproex DR 500 mg Tablet PO (21:09)
[2021-01-10] MEDS: OLANZapine 5 mg ODT 10 MG PO (21:09)
[2021-01-10 22:00] VITALS: BP 124/72; PULSE 88; RESP 18; TEMP 36.4; O2SAT 97
[2021-01-11 06:00] VITALS: RESP 18
[2021-01-11] MEDS: ziprasidone hcl 40 mg Capsule PO ×2 (06:16→15:48)
[2021-01-11] MEDS: lithium carbonate 300 mg Capsule PO (06:16)
[2021-01-11] MEDS: divalproex DR 500 mg Tablet PO (07:55)
[2021-01-11 14:00] VITALS: BP 121/66; PULSE 81; RESP 16; TEMP 36.5; O2SAT 99
--- NOTE | 2021-01-11 15:08 | PM.NPN ---
Subjective NPU Subjective: Interval history: Continues to be somewhat disorganized in her speech and thoughts, tangential making interview difficult. Denies any interval mood symptoms, denies any depressed symptoms, denies any suicidal ideation. Continues to have intermittent behavioral disturbances related to her disorganized thoughts. Appears to tolerate medication well and has been compliant with no reports of any medication side effects Mental Status Exam MSE Comments: Appears stated age, appropriately groomed, dressed, short hair, wearing hospital scrubs, good eye contact, drinking coffee Psychomotor activity is neither increased nor decreased, no agitation Speech is normal rate and volume, occasionally slightly faster than normal rate but not pressured I guess I am a little upset but better, constricted affect, somewhat irritable at times but not labile Alert and oriented to person, place Memory and concentration are fair based on interview Thought process, tangential requiring frequent redirection to approximate answering questions Thought content, some paranoia, delusions, no suicidal or homicidal ideation Insight and judgment appear to be fair at best Vitals/I&O/Wt Last Vital Signs Temp 97.7 F 01/11/21 14:00 Pulse 81 01/11/21 14:00 Resp 16 01/11/21 14:00 BP 121/66 01/11/21 14:00 Pulse Ox 99 01/11/21 14:00 Data NPU : 12/30/20 12:12 12/30/20 12:12 A&P Assessment and plan (1) Schizoaffective disorder: Status: Acute (2) Alcohol use: Status: Chronic Additional A&P Information Ongoing disorganization of speech and behavior, compliant with medication, improving CONTINUE current medication, continue to monitor Involuntary Hold Information 96 Hour Hold: 96 Hour Involuntary Admission: No 96 Hour Hold Ending Date: 06/26/20 96 Hour Hold Ending Time: 19:30 Attestations NPU Medical Necessity Statement*: Continues to require psychiatric hospitalization given her significant psychotic symptoms, disorganization Coding Level of Care Code Acute Forming Process Line Worker for Gustavo Fwloni Diagnoses Schizoaffective disorder F25.9 Alcohol use Z72.89
[2021-01-11] MEDS: OLANZapine 5 mg ODT PO (15:48)
[2021-01-11] MEDS: LORazepam 2 mg/mL INJ 1 mL IM (17:48)
[2021-01-11] MEDS: haloperidol inj 5 mg/mL INJ 1 mL IM (17:48)
[2021-01-11] MEDS: diphenhydrAMINE 50 mg/mL SDV 1mL IM (17:48)
--- NOTE | 2021-01-11 17:49 | PC.NURSE ---
Patient was given Haldol, ativan and Benadryl IM as ordered for physical aggression. See Luke Scott's Nurses Note. ADELSOW, PRODUCT SCIENTIST
--- NOTE | 2021-01-11 18:00 | PC.NURSE ---
1745 patient resting in bed with eyes closed.
--- NOTE | 2021-01-11 18:17 | PC.NURSE ---
Patient behavior/Code 10 At approximately 1730 patient was banging on heater in her room. Security was present and staff walked to room. She was yelling. Medications where offered and she was yelling nonsensical statements. She went into [facility] yelling and med nurse went get medications. hydro generation supervisor was called and present. Patient swung at security. Code 10 was called at 1732. Patient was in room and throwing items at staff and yelling so she was placed in a safe hold and placed on her bed to give her the medication injection IM. She was making statements that the heater in her room was loud and seemed to be tghe cause of her agitation so she agreed to be escorted in a safe hold to room 170. Patient began to calm and requested her clothes from her other room. The situation was de-escalated and patient was calm. Rechecked at 1745 and patient was sleeping.
[2021-01-11 20:26] LABS: Lithium 0.2 mmol/L (0.6-1.2)
[2021-01-11 20:32] VITALS: BP 114/62; PULSE 65; RESP 18; TEMP 36.7; O2SAT 98
[2021-01-11 21:01] LABS: Albumin Level 3.7 g/dL (3.5-5.2); Anion Gap 13.3 (5-19); Blood Urea Nitrogen 17 mg/dL (6-20); Calcium 8.2 mg/dL (8.5-10.5); Carbon Dioxide 28 mmol/L (22-29); Chloride 91 mmol/L (98-107); Glomerular Filtration Rate 85.6 mL/min (90-130); Glucose 78 mg/dL (65-115); Phosphorus 4.3 mg/dL (2.5-4.5); Potassium 4.3 mmol/L (3.5-5.1); Sodium 128 mmol/L (136-145); Thyroid Stimulating Hormone 5.35 uIU/mL (0.27-4.20)
--- NOTE | 2021-01-12 04:46 | PC.NURSE ---
Patient was given ( B-25
--- NOTE | 2021-01-12 04:52 | PC.NURSE ---
Patient was given ( B-52 ) ; 2mg Ativan, 5mg Haldol, and 50 mg Benadryl shortly before shift change. She would not rouse for 2100 medications; even at 2200. She slept through shift. Respirations 16 - 18 non labored.
[2021-01-12 06:00] VITALS: RESP 15
[2021-01-12] MEDS: lithium carbonate 300 mg Capsule PO ×2 (06:53→21:17)
[2021-01-12] MEDS: ziprasidone hcl 40 mg Capsule PO ×2 (06:53→16:13)
[2021-01-12] MEDS: divalproex DR 500 mg Tablet PO ×2 (08:25→21:17)
[2021-01-12 14:00] VITALS: BP 90/61; PULSE 85; RESP 18; TEMP 36; O2SAT 95
--- NOTE | 2021-01-12 16:33 | PM.NPN ---
Subjective NPU Subjective: Interval history: Patient had significant event late yesterday afternoon requiring as needed medication after not responding to verbal redirection on multiple attempts requiring use of IM Haldol. Patient reports feeling better today although she continues to be disorganized in her thoughts, loose associations when asked questions. Reports occasional depressive symptoms, denies any suicidal ideation Continues to have some delusions, reports having some mood congruent auditory hallucinations saying bad things about her Patient reports being compliant with her medication and denies any medication side effects Patient reports that she slept well last evening Reports that her appetite has been fair Mental Status Exam MSE Comments: Sitting up in bed, appropriately groomed and dressed, wearing hospital scrubs, good eye contact Psychomotor activity is neither increased nor decreased, no agitation Speech is normal rate and volume, not pressured I feel okay, constricted affect, irritable at times but not labile Alert and oriented to person, place Memory and concentration are fair based on interview Thought process, tangential requiring frequent redirection to approximate answering questions Thought content, some paranoia, delusions, no suicidal or homicidal ideation Insight and judgment appear to be fair at best Vitals/I&O/Wt Last Vital Signs Temp 98.0 F 01/11/21 20:32 Pulse 65 01/11/21 20:32 Resp 15 01/12/21 06:00 BP 114/62 01/11/21 20:32 Pulse Ox 98 01/11/21 20:32 Data NPU : 12/30/20 12:12 01/11/21 19:48 A&P Assessment and plan (1) Schizoaffective disorder: Status: Acute Additional A&P Information Continues to demonstrate disorganized thoughts, somewhat rambling speech, odd behavior. Interval behavioral disturbance requiring as needed medication. CONTINUE current medication, continue to monitor Involuntary Hold Information 96 Hour Hold: 96 Hour Involuntary Admission: No 96 Hour Hold Ending Date: 06/26/20 96 Hour Hold Ending Time: 19:30 Attestations NPU Medical Necessity Statement*: Continues to require psychiatric hospitalization for medication stabilization Coding Level of Care Code Acute Education Reporter for Gustavo Burns Diagnoses Schizoaffective disorder F25.9
[2021-01-12 20:06] VITALS: RESP 16
[2021-01-12] MEDS: benzocaine 20% 7 gm 1 APPLIC MUCOUS MEM (21:17)
[2021-01-13 06:00] VITALS: BP 103/65; PULSE 93; RESP 18; TEMP 36.7; O2SAT 94
[2021-01-13] MEDS: lithium carbonate 300 mg Capsule PO (06:16)
[2021-01-13] MEDS: ziprasidone hcl 40 mg Capsule PO ×2 (06:16→17:56)
[2021-01-13] MEDS: divalproex DR 500 mg Tablet PO (08:36)
[2021-01-13 14:00] VITALS: BP 141/87; PULSE 119; RESP 20; TEMP 36.6; O2SAT 95
--- NOTE | 2021-01-13 15:46 | P.PN_ITS ---
Subjective NPU Subjective: Interval history: Patient initially lying in bed, irritable, refuses interview today other than stating that she is fine. Mental Status Exam MSE Comments: Refusing interview, patient alert, got up out of her bed and started walking down the hallway stating that interviewers name is the same as a science telegraphic typewriter mechanic although she subsequently states no, that is Fco Patient does not participate in interview to assess thought content although she does not appear to be attending to any internal stimuli Denies any suicidal ideation or thoughts about self-harm Speech is not pressured although her thought process is somewhat loose as above. Vitals/I&O/Wt Last Vital Signs Temp 98.0 F 01/13/21 06:00 Pulse 93 01/13/21 06:00 Resp 18 01/13/21 06:00 BP 103/65 01/13/21 06:00 Pulse Ox 94 01/13/21 06:00 Data NPU : 12/30/20 12:12 01/11/21 19:48 A&P Assessment and plan (1) Schizoaffective disorder: Status: Acute Additional A&P Information Continues to be disorganized, loose association, irritable CONTINUE current medication, continue to monitor Involuntary Hold Information 96 Hour Hold: 96 Hour Involuntary Admission: No 96 Hour Hold Ending Date: 06/26/20 96 Hour Hold Ending Time: 19:30 Attestations NPU Medical Necessity Statement*: Require psychiatric hospitalization for medicati on stabilization Coding Level of Care Code Acute Perfume Compounder for Gustavo Burns Diagnoses Schizoaffective disorder F25.9
[2021-01-13 21:37] VITALS: RESP 17
--- NOTE | 2021-01-13 22:33 | PC.NURSE ---
Addendum entered by Hu Mitchell RN 01/13/21 23:13: ALL THREE MEDICATIONS WERE WASTED PATIENT REFUSED AFTER OPENING MEDICATION. Addendum entered by Hu Mitchell RN 01/13/21 23:12: note continued..... GET THE FU#$ OUT OF HERE!! Original Note: Patient refused 2100 medication; Rayland 300mg, Depakote 500mg, and Zyprexa 10mg. Stating my stomach is upset and my head doesn't feel right. after offering patient something for her stomach, she replied LEAVE ME ALONE AND GET THE F8
[2021-01-13] MEDS: OLANZapine 5 mg ODT 10 MG PO (23:05)
[2021-01-14 06:00] VITALS: BP 131/77; PULSE 86; RESP 18; TEMP 36.6; O2SAT 95
[2021-01-14] MEDS: lithium carbonate 300 mg Capsule PO ×2 (06:34→21:00)
[2021-01-14] MEDS: ziprasidone hcl 40 mg Capsule PO (06:35)
[2021-01-14] MEDS: divalproex DR 500 mg Tablet PO ×2 (07:55→20:59)
--- NOTE | 2021-01-14 10:26 | P.PN_ITS ---
Subjective NPU Subjective: Interval history: She is pleasant today, allowing for interview, looking out the window, stating that she would like to go home and abruptly goes into loose associations of a prior her mom used to say with her and then subsequently drifting into another topic unrelated with similar words Denies any depressive symptoms, denies any suicidal ideation I hear voices but does not relate whether or not its ambient noise versus being directed toward her, denies any visual hallucinations, reports some overvalued ideas, delusions Reports being compliant with her medication, denies any medication side effects No report of any interval behavioral disturbances requiring as needed medication Mental Status Exam MSE Comments: Standing in the 4-year next to her room, appropriately groomed and dressed, drinking coffee, pleasant, good eye contact Psychomotor activity is neither increased nor decreased, no agitation Speech is normal rate and volume, not pressured I am fine, full range of affect, not labile Alert and oriented to person, place Memory and concentration are fair based on interview Thought process, loose associations, tangential requiring frequent redirection t o approximate answering questions Thought content, some paranoia, delusions, no suicidal or homicidal ideation Insight and judgment appear to be fair at best Vitals/I&O/Wt Last Vital Signs Temp 97.9 F 01/14/21 06:00 Pulse 86 01/14/21 06:00 Resp 18 01/14/21 06:00 BP 131/77 01/14/21 06:00 Pulse Ox 95 01/14/21 06:00 Weight last 48 hrs Weight 56.699 kg Data NPU : 12/30/20 12:12 01/11/21 19:48 A&P Assessment and plan (1) Schizoaffective disorder: Status: Acute Additional A&P Information Continues to have significant disorganization of speech and behavior and thoughts, some improvement in overall functioning, less behavioral disturbances INCREASE to olanzapine 10 mg twice daily DECREASE to Geodon 20 mg twice daily Involuntary Hold Information 96 Hour Hold: 96 Hour Involuntary Admission: No 96 Hour Hold Ending Date: 06/26/20 96 Hour Hold Ending Time: 19:30 Attestations NPU 2 Medical Necessity Statement*: Continues require psychiatric hospitalization for medication stabilization Coding Level of Care Code Acute Sandblasting Supervisor for Gustavo Burns Diagnoses Schizoaffective disorder F25.9
[2021-01-14 14:00] VITALS: BP 155/78; PULSE 80; RESP 18; TEMP 36.1; O2SAT 94
[2021-01-14] MEDS: ziprasidone hcl 20 mg Capsule PO (17:00)
[2021-01-14 19:59] VITALS: BP 119/61; PULSE 99; RESP 17; TEMP 36.2; O2SAT 94
[2021-01-14] MEDS: OLANZapine 5 mg ODT 10 MG PO (21:00)
[2021-01-15 06:00] VITALS: RESP 17
[2021-01-15] MEDS: ziprasidone hcl 20 mg Capsule PO ×2 (06:44→16:21)
[2021-01-15] MEDS: lithium carbonate 300 mg Capsule PO ×2 (06:44→20:47)
[2021-01-15] MEDS: OLANZapine 10 mg TABLET PO (07:19)
[2021-01-15] MEDS: divalproex DR 500 mg Tablet PO ×2 (07:19→20:55)
[2021-01-15 14:00] VITALS: BP 142/64; PULSE 81; RESP 18; TEMP 35.7; O2SAT 96
--- NOTE | 2021-01-15 14:18 | PM.NPN ---
Subjective NPU Subjective: Interval history: Patient is irritable, ask why the interviewer is bothering her, makes a couple nonsensical statements and promptly leaves the room. Mental Status Exam MSE Comments: Initially lying down but promptly leaves the room Does not provide any responses to interview questions Visibly irritable but does not provide stated mood Speech is normal rate and volume, spontaneous, not pressured Unable to assess memory and concentration, thought process, thought content Insight and judgment appear to be limited Vitals/I&O/Wt Last Vital Signs Temp 97.2 F L 01/14/21 19:59 Pulse 99 01/14/21 19:59 Resp 17 01/15/21 06:00 BP 119/61 01/14/21 19:59 Pulse Ox 94 01/14/21 19:59 Weight last 48 hrs Weight 56.699 kg Data NPU : 12/30/20 12:12 01/11/21 19:48 A&P Assessment and plan (1) Schizoaffective disorder: Status: Acute Additional A&P Information Patient is irritable, refusing interview CONTINUE current medication, continue to monitor Involuntary Hold Information 96 Hour Hold: 96 Hour Involuntary Admission: No 96 Hour Hold Ending Date: 06/26/20 96 Hour Hold Ending Time: 19:30 Attestations NPU Medical Necessity Statement*: Continues require psychiatric hospitalization for medication stabilization Coding Level of Care Code Acute Agricultural Consultant for Gustavo Burns Diagnoses Schizoaffective disorder F25.9
[2021-01-15] MEDS: OLANZapine 5 mg ODT 10 MG PO (20:46)
[2021-01-15 20:58] VITALS: RESP 18
[2021-01-16 06:00] VITALS: BP 140/67; PULSE 74; RESP 19; TEMP 37; O2SAT 96
[2021-01-16] MEDS: ziprasidone hcl 20 mg Capsule PO ×2 (06:16→17:50)
[2021-01-16] MEDS: lithium carbonate 300 mg Capsule PO ×2 (06:17→20:57)
[2021-01-16] MEDS: divalproex DR 500 mg Tablet PO ×2 (08:08→20:57)
[2021-01-16] MEDS: OLANZapine 10 mg TABLET PO (08:08)
--- NOTE | 2021-01-16 11:57 | PM.NPN ---
Subjective NPU Subjective: Interval history: Patient somewhat more cooperative today although occasionally irritable, asking about going home. Patient is able to relate events leading to her hospitalization stating that she did not knock on the door of her neighbor because she felt like the bones in her hand were broken. Patient states that she knew that she was wrong going in her house and that the senior finance manager brought her to the hospital. Continues to have ongoing delusions, denies any auditory or visual destinations Denies any depressive symptoms, denies any suicidal ideation Reports being compliant with the medication, denies any medication side effects Mental Status Exam MSE Comments: Appears stated age, standing in day room, irritable but cooperative, good eye contact Psychomotor activity is neither increased nor decreased, no agitation Speech is normal rate and volume, spontaneous, clear articulation, not pressured I am fine, full range, not labile Alert and oriented to person, place, time Memory and concentration are fair per interview Thought process, linear but brief, some loose associations Thought content, some overvalued ideas, delusions, does not appear to be attending to any internal stimuli, no suicidal or homicidal ideation Insight and judgment appear to be fair Vitals/I&O/Wt Last Vital Signs Temp 98.6 F 01/16/21 06:00 Pulse 74 01/16/21 06:00 Resp 19 H 01/16/21 06:00 BP 140/67 01/16/21 06:00 Pulse Ox 96 01/16/21 06:00 Data NPU : 12/30/20 12:12 01/11/21 19:48 A&P Assessment and plan (1) Schizoaffective disorder: Status: Acute Qualifiers: Schizoaffective disorder type: unspecified Qualified Code(s): F25.9 - Schizoaffective disorder, unspecified Additional A&P Information Appears to be at baseline with regards to delusions, no interval behavioral disturbances CONTINUE current medication, continue to monitor Involuntary Hold Information 96 Hour Hold: 96 Hour Involuntary Admission: No 96 Hour Hold Ending Date: 06/26/20 96 Hour Hold Ending Time: 19:30 Attestations NPU Medical Necessity Statement*: Continues to require psychiatric hospitalization for medication stabilization Coding Level of Care Code Acute Senior [employer] Pl Sql Developer for Gustavo Burns Diagnoses Schizoaffective disorder F25.9 Schizoaffective disorder type: unspecified
[2021-01-16 13:06] LABS: Lithium 0.4 mmol/L (0.6-1.2)
[2021-01-16 13:16] LABS: Albumin Level 4.3 g/dL (3.5-5.2); Alkaline Phosphatase 113 IU/L (35-105); Blood Urea Nitrogen 14 mg/dL (6-20); Calcium 9.3 mg/dL (8.5-10.5); Carbon Dioxide 31 mmol/L (22-29); Chloride 90 mmol/L (98-107); Globulin 2.8 g/dL (1.3-4.6); Glomerular Filtration Rate 126.3 mL/min (90-130); Glucose 92 mg/dL (65-115); Osmolality Calculated 268 mOsm/kg (285-295); Sodium 129 mmol/L (136-145); Thyroid Stimulating Hormone 2.15 uIU/mL (0.27-4.20); Total Bilirubin 0.2 mg/dL (0.15-1.2); Total Protein 7.1 g/dL (6.6-8.7)
[2021-01-16 13:28] LABS: Alanine Aminotransferase < 5 U/L (0-33); Aspartate Amino Transferase 5 U/L (0-32)
[2021-01-16 13:34] LABS: Anion Gap 12.3 (5-19); Potassium 4.3 mmol/L (3.5-5.1)
[2021-01-16 13:38] VITALS: BP 122/65; PULSE 65; RESP 16; TEMP 36.8; O2SAT 99
[2021-01-16 20:39] VITALS: RESP 17
[2021-01-16] MEDS: OLANZapine 5 mg ODT 10 MG PO (20:58)
--- NOTE | 2021-01-17 00:50 | PC.NURSE ---
PM ASSESSMENT PT IS RESTING IN HER ROOM. NURSING STAFF COUNTED RESPIRATIONS AT 16. PT IS CURLED UP IN HER BLANKETS, SHE IS PEACEFUL. SHE WAS NOT DISTURBED. WILL CONTINUE TO MONITOR PT.
[2021-01-17 06:00] VITALS: PULSE 98; RESP 18; TEMP 36.8; O2SAT 96
[2021-01-17] MEDS: ziprasidone hcl 20 mg Capsule PO ×2 (06:06→16:37)
[2021-01-17] MEDS: lithium carbonate 300 mg Capsule PO ×2 (06:06→20:46)
[2021-01-17] MEDS: divalproex DR 500 mg Tablet PO ×2 (08:38→20:46)
[2021-01-17] MEDS: OLANZapine 10 mg TABLET PO (08:39)
--- NOTE | 2021-01-17 12:59 | P.PN_ITS ---
Subjective NPU Subjective: Interval history: Continues to make nonsensical statements at times, makes delusional statements Denies any interval depressive symptoms, denies any suicidal ideation Denies any auditory or visual destinations Continues to be compliant with medication, denies any medication side effects Mental Status Exam MSE Comments: Walking around in day room, occasionally irritable but cooperative, good eye contact Psychomotor activity is neither increased nor decreased, no agitation Speech is normal rate and volume, spontaneous, clear articulation, not pressured I feel fine, full range, not labile Alert and oriented to person, place, time Memory and concentration are fair per interview Thought process, linear but brief, some loose associations Thought content, some overvalued ideas, delusions, no hallucinations, no suicidal or homicidal ideation Insight and judgment appear to be fair Vitals/I&O/Wt Last Vital Signs Temp 98.3 F 01/17/21 06:00 Pulse 98 01/17/21 06:00 Resp 18 01/17/21 06:00 BP 122/65 01/16/21 13:38 Pulse Ox 96 01/17/21 06:00 Data NPU : 12/30/20 12:12 01/16/21 12:30 A&P Assessment and plan (1) Schizoaffective disorder: Status: Acute Qualifiers: Schizoaffective disorder type: unspecified Qualified Code(s): F25.9 - Schizoaffective disorder, unspecified Additional A&P Information Appears to be at baseline, continues to have delusions, intermittent irritability but otherwise redirectable CONTINUE current medication, continue to monitor Involuntary Hold Information 96 Hour Hold: 96 Hour Involuntary Admission: No 96 Hour Hold Ending Date: 06/26/20 96 Hour Hold Ending Time: 19:30 Attestations NPU Medical Necessity Statement*: Continues require psychiatric hospitalization for medication stabilization, coordination for safe discharge Coding Level of Care Code Acute Bilingual Inside Sales Representative for [facility] Diagnoses Schizoaffective disorder F25.9 Schizoaffective disorder type: unspecified
[2021-01-17 14:00] VITALS: BP 118/74; PULSE 73; RESP 20; TEMP 36.6; O2SAT 93
[2021-01-17 19:49] VITALS: BP 136/65; PULSE 73; RESP 16; TEMP 36.6; O2SAT 98
[2021-01-17] MEDS: OLANZapine 5 mg ODT 10 MG PO (20:46)
[2021-01-18 06:00] VITALS: BP 141/75; PULSE 73; RESP 17; TEMP 36.2; O2SAT 97
[2021-01-18] MEDS: lithium carbonate 300 mg Capsule PO ×2 (06:41→20:44)
[2021-01-18] MEDS: ziprasidone hcl 20 mg Capsule PO ×2 (06:41→16:46)
[2021-01-18] MEDS: divalproex DR 500 mg Tablet PO ×2 (08:19→20:43)
[2021-01-18] MEDS: OLANZapine 10 mg TABLET PO (08:19)
--- NOTE | 2021-01-18 13:28 | PM.NPN ---
Subjective NPU Subjective: Interval history: Patient is more organized today and less irritable, able to respond to questions in an organized manner without being tangential. Patient is able to communicate her understanding of the need to be compliant with her medication and follow-up. Denies any interval mood symptoms. Denies any interval auditory or visual destinations Per staff report, no interval behavioral disturbances Mental Status Exam MSE Comments: Walking around on unit, calm, cooperative, good eye contact Psychomotor activity is neither increased nor decreased, no agitation Speech is normal rate and volume, spontaneous, clear articulation, not pressured I feel good, full range, not labile Alert and oriented to person, place, time Memory and concentration are fair to intact per interview Thought process, linear but brief, no flight of ideas no stated loose associations Thought content, some overvalued ideas, no hallucinations, no suicidal or homicidal ideation Insight and judgment appear to be fair Vitals/I&O/Wt Last Vital Signs Temp 97.1 F L 01/18/21 06:00 Pulse 73 01/18/21 06:00 Resp 17 01/18/21 06:00 BP 141/75 01/18/21 06:00 Pulse Ox 97 01/18/21 06:00 Data NPU : 12/30/20 12:12 01/16/21 12:30 A&P Assessment and plan (1) Schizoaffective disorder: Status: Acute Qualifiers: Schizoaffective disorder type: unspecified Qualified Code(s): F25.9 - Schizoaffective disorder, unspecified Additional A&P Information Significant improvement in her organization of thoughts, speech and behavior CONTINUE current medication, continue to monitor Involuntary Hold Information 96 Hour Hold: 96 Hour Involuntary Admission: No 96 Hour Hold Ending Date: 06/26/20 96 Hour Hold Ending Time: 19:30 Attestations NPU Medical Necessity Statement*: Continues to require psychiatric hospitalization for medication stabilization Coding Level of Care Code Acute Male Impersonator for [facility] Diagnoses Schizoaffective disorder F25.9 Schizoaffective disorder type: unspecified
[2021-01-18 14:00] VITALS: BP 136/67; PULSE 88; RESP 18; TEMP 36.2; O2SAT 96
--- NOTE | 2021-01-18 14:13 | PC.SOCIAL ---
Important Medicare Message Reviewed page 2 Important Medicare Message with patient. Verbalized understand and signed. Original to patient and copy in chart.
[2021-01-18 20:00] VITALS: BP 114/73; PULSE 81; RESP 16; TEMP 36.6; O2SAT 97
[2021-01-18] MEDS: OLANZapine 5 mg ODT 10 MG PO (20:43)
[2021-01-18 22:00] VITALS: BP 136/67; PULSE 88; RESP 18; TEMP 36.2; O2SAT 96
[2021-01-19 06:00] VITALS: BP 136/67; PULSE 88; RESP 18; TEMP 36.2; O2SAT 96
[2021-01-19] MEDS: ziprasidone hcl 20 mg Capsule PO (06:12)
[2021-01-19] MEDS: lithium carbonate 300 mg Capsule PO (06:12)
[2021-01-19 06:21] VITALS: BP 106/62; PULSE 84; RESP 16; TEMP 36.7; O2SAT 96
--- NOTE | 2021-01-19 06:31 | PC.NURSE ---
0600 vital sign entry is erroneous. Accidentally hit recall . the 0620 entry is valid.
[2021-01-19] MEDS: OLANZapine 10 mg TABLET PO (07:14)
[2021-01-19] MEDS: divalproex DR 500 mg Tablet PO (07:14)
--- NOTE | 2021-01-19 11:05 | P.DS_ITS ---
Diagnoses at Discharge Discharge Diagnosis (1) Schizoaffective disorder: Status: Acute Qualifiers: Schizoaffective disorder type: unspecified Qualified Code(s): F25.9 - Schizoaffective disorder, unspecified Reason for Visit Reason for Visit: COMBATIVE Hospital Course Hospital Course 60-year-old female with longstanding history of schizoaffective disorder admitted to the inpatient psychiatry unit after being brought in by police on 96-hour hold for intruding in neighbor's house, psychosis, irritable and angry behavior. Patient was restarted on home medications after admission although patient continued to be significantly disorganized in her thoughts, speech and behavior and occasionally refusing medication. Patient was likely not compliant with the medication as her lithium level was 0.1 at admission and after continuation of her home medication had increased to a level of 0.4 prior to discharge. Medication adjustments included increasing olanzapine to 10 mg twice daily and discontinuation of Geodon. After continuation of this medication regimen of lithium 300 mg twice daily, olanzapine 10 mg twice daily, Depakote 500 mg twice daily, patient became more organized and agreeable and compliant with her medication regimen. At the time of discharge, patient was more organized and was not demonstrating any disruptive or irritable or angry behavior and was not suicidal or homicidal and did not appear to pose an imminent threat of harm to self or others. Low to moderate risk of harm to self or others given no overtly psychotic behavior although patient continues to be at baseline with regards to delusions and overvalued ideas. Patient's risk may be elevated if she is noncompliant with her medication or medication management follow-up. Risk mitigation included psychiatric hospitalization for lengthy observation and medication stabilization with coordination for safe discharge to include post discharge psychiatric follow-up. Patient communicated her understanding of the need to be compliant with her medication and medication management follow-up as well as the need to abstain from the use of any alcohol in order to further mitigate her risk of harm to self or others. Involuntary Hold Information 96 Hour Hold: 96 Hour Involuntary Admission: No 96 Hour Hold Ending Date: 06/26/20 96 Hour Hold Ending Time: 19:30 Mental Status Exam MSE Comments: Standing in her room, polite, calm, cooperative, good eye contact Psychomotor activity is neither increased nor decreased, no agitation Speech is normal rate and volume, spontaneous, clear articulation, not pressured I feel okay, full range, not labile Alert and oriented to person, place, time Memory and concentration are fair to intact per interview Thought process, linear but brief, no flight of ideas no stated loose asso ciations Thought content, some overvalued ideas, no hallucinations, no suicidal or homicidal ideation Insight and judgment appear to be fair Discharge Data Data Completed and Pending: Pending at discharge Category Date Time Status Valproic Acid Lev el Routine Lab 01/17/21 10:28 Ordered Vitals: Last Vital Signs Temp 98.1 F 01/19/21 06:21 Pulse 84 01/19/21 06:21 Resp 16 01/19/21 06:21 BP 106/62 01/19/21 06:21 Pulse Ox 96 01/19/21 06:21 Discharge Plan Discharge Patient Disposition: Home Condition: Stable Prescriptions: New olanzapine 10 mg Tablet 10 mg PO DAILY Qty: 30 RF: 0 ziprasidone HCl 20 mg Capsule 20 mg PO 0700,1700 Qty: 60 RF: 0 Continued lithium carbonate 300 mg Capsule 300 mg PO BEDTIME 30 Days Qty: 30 RF: 1 lithium carbonate 300 mg Capsule 300 mg PO ACBREAKFAST 30 Days Qty: 30 RF: 1 divalproex 500 mg tablet,delayed release (DR/EC) 500 mg PO BID RF: 0 olanzapine 5 mg tablet,disintegrating 10 mg PO BEDTIME RF: 0 Discontinued ziprasidone HCl 40 mg Capsule 40 mg PO 0700,1700 30 Days Qty: 60 RF: 1 Discharge Orders: Discharge Order (Routine); Ordered 01/19/21 Ordered By: Salima Delarosa [place] [facility] [place] [facility] [place] Discharge Diet: Usual diet Discharge Activity: Resume usual activity Discharge Attestations NPU Time Spent in Discharge Care*: greater than 30 min Status at Discharge: Cognitive status at discharge: cognitively intact , Behavioral status at discharge: cooperative , Functional status at discharge: independent ambulation Overall status at discharge: patient is back to baseline Coding Level of Care Code Acute Photographer Still for Gustavo Burns Diagnoses Schizoaffective disorder F25.9 Schizoaffective disorder type: unspecified
[2021-01-19 11:13] VITALS: BP 106/62; PULSE 84; RESP 16; TEMP 36.7; O2SAT 96
== END 2021-01-19 12:14 | disposition home or self-care (01) | DRG 885 ==
LOC: ER 12:05 → NP 13:17
PROVIDERS: Admitting Provider Psychiatry & Neurology Psychiatry; Emergency Provider Family Medicine; Visit Provider Psychiatry & Neurology Psychiatry
DX: F25.9 Schizoaffective disorder, unspecified (principal); F17.210 Nicotine dependence, cigarettes, uncomplicated
CPT/HCPCS: 12345; 36415; 80053; 80069; 80164; 80178; 80306; 80307; 81003; 84443; 85025; 96372; 99284; J1200; J1630; J2060